=== PATIENT | female | born 1960 | race Caucasian/White ===

== ENCOUNTER → 2016-03-19 | Outpatient (CLI) | payer OTHER ==
--- NOTE | 2016-03-19 10:20 | US ---
EXAMINATION TYPE: US transvaginal DATE OF EXAM: 03/19/2016 7:26 AM COMPARISON: NONE CLINICAL HISTORY: Screening for malignant neoplasm per order; Breast CA and BRCA 2 gene per patient. TECHNIQUE: Transvaginal (TV) pelvic ultrasound. Date of LMP: ~ 8 years ago at time after Breast CA treatment EXAM MEASUREMENTS: Uterus: 7.8 x 4.2 x 3.2cm Endometrial Stripe: 0.5cm ?? Right Ovary:1.7 x 1.8 x 1.4cm Left Ovary: 1.8 x 1.6 x 1.3cm FINDINGS: TECHNOLOGIST IMPRESSION: 1. Uterus: Anteverted; hypoechoic, heterogeneous, oval mass at right midline myometrium with color f low noted in periphery and suggests uterine fibroid = 2.1 x 1.9 x 1.7cm. Suspect subserosal fibroid a s causes lobulation of contour. 2, Endometrium: thickness is wnl for postmenopausal patient 3. Right Ovary: no masses seen and limitedly noted by US 4. Left Ovary: wnl Uterus is suboptimally evaluated due to marked heterogeneity. Endometrium difficult to see with certa inty but is not suspiciously thickened. No free fluid is seen in pelvic cul-de-sac. IMPRESSION: Both ovaries are identified. No suspicious ovarian or adnexal mass is seen bilaterally.
== END | disposition home or self-care (01) ==
LOC: RADUSWWP 06:50
PROVIDERS: ATTEND Internal Medicine
DX: Z08 Encounter for follow-up examination after completed treatment for malignant neoplasm (principal); Z12.73 Encounter for screening for malignant neoplasm of ovary
CPT/HCPCS: 76830

== ENCOUNTER 2016-09-06 16:57 | Inpatient (IN) | payer OTHER ==
[2016-09-06] MEDS ORDERED: methylPREDNISolone SOD SUCCI 125 MG/2 ML VIAL IV STA (17:12)
[2016-09-06] MEDS ORDERED: MAGNESIUM SULFATE-D5W PMX 1 GM in DEXTROSE/WATER 1 100ML.BAG IVPB STA (17:12)
[2016-09-06] MEDS ORDERED: IPRATROPIUM-ALBUTEROL 3 ML NEB INHALATION STA (17:12)
--- NOTE | 2016-09-06 17:25 | ED ---
SOB HPI - General Chief Complaint: Shortness of Breath Stated Complaint: alin Time Seen by Provider: 09/06/16 17:10 Source: patient, RN notes reviewed Mode of arrival: wheelchair Limitations: no limitations - History of Present Illness Initial Comments: This 56-year-old female history of COPD who presents with complaints of ongoing shortness of breath. 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 She recently also* was placed on medications for not helping. She was cough or shoulder sweats he does not smoke anymore. Complaint: shortness of breath - Related Data Home Medications Medication Instructions Recorded Confirmed Albuterol Sulfate [Proair 1 puff PO RT-Q6H PRN 09/06/16 09/06/16 Respiclick] Budesonide/Formoterol Fumarate 2 puff INHALATION RT-BID 09/06/16 09/06/16 [Symbicort 160-4.5 Mcg Inhaler] HYDROcodone/APAP 10-325MG [[place] 1 tab PO BID 09/06/16 09/06/16 10-325] Ibuprofen [Motrin] 600 mg PO BID PRN 09/06/16 09/06/16 Levothyroxine Sodium [Synthroid] 150 mcg PO DAILY 09/06/16 09/06/16 Tiotropium [place] [Spiriva] 1 cap INHALATION RT-DAILY 09/06/16 09/06/16 Zolpidem [Ambien] 5 mg PO HS PRN 09/06/16 09/06/16 Allergies Allergy/AdvReac Type Severity Reaction Status Date / Time ciprofloxacin [From Cipro] Allergy Rash/Hives Verified 09/06/16 17:28 Review of Systems ROS Statement: Those systems with pertinent positive or pertinent negative responses have been documented in the HPI. ROS Other: All systems not noted in ROS Statement are negative. Past Medical History Past Medical History: Cancer, COPD, Thyroid Disorder Additional Past Medical History / Comment(s): breast CA History of Any Multi-Drug Resistant Organisms: None Reported Additional Past Surgical History / Comment(s): bilateral mastectomy Past Psychological History: No Psychological Hx Reported Smoking Status: Former smoker Past Alcohol Use History: None Reported Past Drug Use History: None Reported General Exam - General Exam Comments Initial Comments: This is a well-developed well-nourished awake alert oriented 3 female Limitations: no limitations General appearance: alert, anxious, in distress Head exam: Present: atraumatic, normocephalic, normal inspection Eye exam: Present: normal appearance, PERRL, EOMI. Absent: scleral icterus, conjunctival injection, periorbital swelling ENT exam: Present: mucous membranes dry Neck exam: Present: normal inspection. Absent: tenderness, meningismus, lymphadenopathy Respiratory exam: Present: decreased breath sounds Cardiovascular Exam: Present: normal rhythm, tachycardia GI/Abdominal exam: Present: soft, normal bowel sounds. Absent: distended, tenderness, guarding, rebound, rigid Extremities exam: Present: normal inspection, full ROM, normal capillary refill. Absent: tenderness, pedal edema, joint swelling, calf tenderness Back exam: Present: normal inspection Neurological exam: Present: alert, oriented X3, CN II-XII intact Psychiatric exam: Present: normal affect, normal mood Skin exam: Present: warm, dry, intact, normal color. Absent: rash Course Vital Signs 09/06/16 09/06/16 09/06/16 16:58 17:28 17:37 Temperature 97.6 F Pulse Rate 126 H 126 H 130 H Respiratory 24 Rate Blood Pressure 133/85 O2 Sat by Pulse 79 L Oximetry - Reevaluation(s) Reevaluation #1: 09/06/16 18:46 Reevaluation patient reveals she was getting some improvement Medical Decision Making - Medical Decision Making I did discuss findings with the patient. Visual be admitted there is evidence of congestive failure with a right pleural effusion and pneumonia as not ruled out. There is only with blood cell count patient will be treated for both. - Lab Data Result diagrams: 09/06/16 17:12 09/06/16 17:12 Lab Results 09/06/16 09/06/16 09/06/16 Range/Units 17:12 17:12 17:12 WBC 12.5 H (3.8-10.6) k/uL RBC 4.83 (3.80-5.40) m/uL Hgb 15.1 (11.4-16.0) gm/dL Hct 45.6 (34.0-46.0) % MCV 94.4 (80.0-100.0) fL MCH 31.3 (25.0-35.0) pg MCHC 33.1 (31.0-37.0) g/dL RDW 13.8 (11.5-15.5) % Plt Count 265 (150-450) k/uL Neutrophils % 84 % Lymphocytes % 8 % Monocytes % 6 % Eosinophils % 1 % Basophils % 0 % Neutrophils # 10.4 H (1.3-7.7) k/uL Lymphocytes # 1.0 (1.0-4.8) k/uL Monocytes # 0.7 (0-1.0) k/uL Eosinophils # 0.1 (0-0.7) k/uL Basophils # 0.0 (0-0.2) k/uL PT (9.0-12.0) sec INR (<1.1) APTT (22.0-30.0) sec D-Dimer (<0.60) mg/L FEU Sodium 134 L (137-145) mmol/L Potassium 4.3 (3.5-5.1) mmol/L Chloride 95 L (98-107) mmol/L Carbon Dioxide 28 (22-30) mmol/L Anion Gap 11 mmol/L BUN 17 (7-17) mg/dL Creatinine 0.50 L (0.52-1.04) mg/dL Est GFR (MDRD) Af Amer >60 (>60 ml/min/1.73 sqM) Est GFR (MDRD) Non-Af >60 (>60 ml/min/1.73 sqM) Glucose 140 H (74-99) mg/dL Calcium 9.2 (8.4-10.2) mg/dL Magnesium 1.8 (1.6-2.3) mg/dL Total Bilirubin 0.3 (0.2-1.3) mg/dL AST 22 (14-36) U/L ALT 38 (9-52) U/L Alkaline Phosphatase 86 (38-126) U/L Total Creatine Kinase 43 (30-135) U/L CK-MB (CK-2) 2.4 (0.0-2.4) ng/mL CK-MB (CK-2) Rel Index 5.6 Troponin I 0.013 (0.000-0.034) ng/mL NT-Pro-B Natriuret Pep pg/mL Total Protein 6.3 (6.3-8.2) g/dL Albumin 3.8 (3.5-5.0) g/dL 09/06/16 09/06/16 Range/Units 17:12 17:40 WBC (3.8-10.6) k/uL RBC (3.80-5.40) m/uL Hgb (11.4-16.0) gm/dL Hct (34.0-46.0) % MCV (80.0-100.0) fL MCH (25.0-35.0) pg MCHC (31.0-37.0) g/dL RDW (11.5-15.5) % Plt Count (150-450) k/uL Neutrophils % % Lymphocytes % % Monocytes % % Eosinophils % % Basophils % % Neutrophils # (1.3-7.7) k/uL Lymphocytes # (1.0-4.8) k/uL Monocytes # (0-1.0) k/uL Eosinophils # (0-0.7) k/uL Basophils # (0-0.2) k/uL PT 10.6 (9.0-12.0) sec INR 1.1 (<1.1) APTT 24.5 (22.0-30.0) sec D-Dimer 0.26 (<0.60) mg/L FEU Sodium (137-145) mmol/L Potassium (3.5-5.1) mmol/L Chloride (98-107) mmol/L Carbon Dioxide (22-30) mmol/L Anion Gap mmol/L BUN (7-17) mg/dL Creatinine (0.52-1.04) mg/dL Est GFR (MDRD) Af Amer (>60 ml/min/1.73 sqM) Est GFR (MDRD) Non-Af (>60 ml/min/1.73 sqM) Glucose (74-99) mg/dL Calcium (8.4-10.2) mg/dL Magnesium (1.6-2.3) mg/dL Total Bilirubin (0.2-1.3) mg/dL AST (14-36) U/L ALT (9-52) U/L Alkaline Phosphatase (38-126) U/L Total Creatine Kinase (30-135) U/L CK-MB (CK-2) (0.0-2.4) ng/mL CK-MB (CK-2) Rel Index Troponin I (0.000-0.034) ng/mL NT-Pro-B Natriuret Pep 1700 pg/mL Total Protein (6.3-8.2) g/dL Albumin (3.5-5.0) g/dL - Radiology Data Radiology results: report reviewed (Right pleural effusion with pulmonary vascular congestion.), image reviewed Critical Care Time Critical Care Time: Yes Critical Care Time: 32 minutes of critical care time which includes initial evaluation the patient with history physical labs x-rays reevaluation patient several occasions for responsive therapy. Discussion with the patient regarding findings discussed with the admitting physician initial orders and documentation of the above. Disposition Clinical Impression: Congestive heart failure, Pleural effusion, right, Pneumonitis Disposition: ADMITTED IP TO THIS HOSP Condition: Stable Referrals: Memo Rodriguez MD [Primary Care Provider] - 1-2 days
[2016-09-06 17:46] LABS: Basophils % (A) 0 %; Eosinophils # (A) 0.1 k/uL (0-0.7); Eosinophils % (A) 1 %; HCT 45.6 % (34.0-46.0); HDW 3.13; HGB 15.1 gm/dL (11.4-16.0); Luc # (Auto) 0.18; Luc % (Auto) 2; Lymphocytes % (A) 8 %; MCH 31.3 pg (25.0-35.0); MCHC 33.1 g/dL (31.0-37.0); MCV 94.4 fL (80.0-100.0); Mean Platelet Volume 7.3; Monocytes # (A) 0.7 k/uL (0-1.0); Monocytes % (A) 6 %; Neutrophils # (A) 10.4 k/uL (1.3-7.7); Neutrophils % (A) 84 %; RBC 4.83 m/uL (3.80-5.40); RDW 13.8 % (11.5-15.5); WBC 12.5 k/uL (3.8-10.6); WBC (Perox) 13.29
[2016-09-06 18:01] LABS: ALT 38 U/L (9-52); AST 22 U/L (14-36); Alkaline Phosphatase 86 U/L (38-126); Blood Urea Nitrogen 17 mg/dL (7-17); Calcium 9.2 mg/dL (8.4-10.2); Carbon Dioxide 28 mmol/L (22-30); Glucose 140 mg/dL (74-99); Magnesium 1.8 mg/dL (1.6-2.3); Non-African American GFR(MDRD) >60 (>60 ml/min/1.73 sqM); Potassium 4.3 mmol/L (3.5-5.1); Sodium 134 mmol/L (137-145); Total Bilirubin 0.3 mg/dL (0.2-1.3); Total Protein 6.3 g/dL (6.3-8.2)
[2016-09-06 18:05] LABS: Anion Gap 11 mmol/L; Chloride 95 mmol/L (98-107)
[2016-09-06 18:07] LABS: INR 1.1 (<1.1); Partial Thromboplastin Time 24.5 sec (22.0-30.0); Prothrombin Time 10.6 sec (9.0-12.0)
[2016-09-06 18:12] LABS: Creatine Kinase MB 2.4 ng/mL (0.0-2.4); Troponin I 0.013 ng/mL (0.000-0.034)
--- NOTE | 2016-09-06 18:37 | XR ---
EXAMINATION TYPE: XR chest 2V DATE OF EXAM: 09/06/2016 COMPARISON: 07/22/2016 HISTORY: 55-year-old female difficulty breathing TECHNIQUE: AP and lateral views FINDINGS: Right heart margin obscured by adjacent pleural parenchymal disease. Diffuse interstitial and vascula r prominence. Moderate right and small left pleural effusions with adjacent opacities. IMPRESSION: Increasing now moderate right and small left pleural effusions with adjacent atelectasis and/or conso lidation. Correlate to exclude pulmonary vascular congestion.
[2016-09-06] MEDS ORDERED: IBUPROFEN 600 MG TAB PO PRN (18:52)
--- NOTE | 2016-09-06 18:54 | ED ---
Medical Decision Making - Lab Data Result diagrams: 09/06/16 17:12 09/06/16 17:12 Lab Results 09/06/16 09/06/16 09/06/16 Range/Units 17:12 17:12 17:12 WBC 12.5 H (3.8-10.6) k/uL RBC 4.83 (3.80-5.40) m/uL Hgb 15.1 (11.4-16.0) gm/dL Hct 45.6 (34.0-46.0) % MCV 94.4 (80.0-100.0) fL MCH 31.3 (25.0-35.0) pg MCHC 33.1 (31.0-37.0) g/dL RDW 13.8 (11.5-15.5) % Plt Count 265 (150-450) k/uL Neutrophils % 84 % Lymphocytes % 8 % Monocytes % 6 % Eosinophils % 1 % Basophils % 0 % Neutrophils # 10.4 H (1.3-7.7) k/uL Lymphocytes # 1.0 (1.0-4.8) k/uL Monocytes # 0.7 (0-1.0) k/uL Eosinophils # 0.1 (0-0.7) k/uL Basophils # 0.0 (0-0.2) k/uL PT (9.0-12.0) sec INR (<1.1) APTT (22.0-30.0) sec D-Dimer (<0.60) mg/L FEU Sodium 134 L (137-145) mmol/L Potassium 4.3 (3.5-5.1) mmol/L Chloride 95 L (98-107) mmol/L Carbon Dioxide 28 (22-30) mmol/L Anion Gap 11 mmol/L BUN 17 (7-17) mg/dL Creatinine 0.50 L (0.52-1.04) mg/dL Est GFR (MDRD) Af Amer >60 (>60 ml/min/1.73 sqM) Est GFR (MDRD) Non-Af >60 (>60 ml/min/1.73 sqM) Glucose 140 H (74-99) mg/dL Calcium 9.2 (8.4-10.2) mg/dL Magnesium 1.8 (1.6-2.3) mg/dL Total Bilirubin 0.3 (0.2-1.3) mg/dL AST 22 (14-36) U/L ALT 38 (9-52) U/L Alkaline Phosphatase 86 (38-126) U/L Total Creatine Kinase 43 (30-135) U/L CK-MB (CK-2) 2.4 (0.0-2.4) ng/mL CK-MB (CK-2) Rel Index 5.6 Troponin I 0.013 (0.000-0.034) ng/mL NT-Pro-B Natriuret Pep pg/mL Total Protein 6.3 (6.3-8.2) g/dL Albumin 3.8 (3.5-5.0) g/dL 09/06/16 09/06/16 Range/Units 17:12 17:40 WBC (3.8-10.6) k/uL RBC (3.80-5.40) m/uL Hgb (11.4-16.0) gm/dL Hct (34.0-46.0) % MCV (80.0-100.0) fL MCH (25.0-35.0) pg MCHC (31.0-37.0) g/dL RDW (11.5-15.5) % Plt Count (150-450) k/uL Neutrophils % % Lymphocytes % % Monocytes % % Eosinophils % % Basophils % % Neutrophils # (1.3-7.7) k/uL Lymphocytes # (1.0-4.8) k/uL Monocytes # (0-1.0) k/uL Eosinophils # (0-0.7) k/uL Basophils # (0-0.2) k/uL PT 10.6 (9.0-12.0) sec INR 1.1 (<1.1) APTT 24.5 (22.0-30.0) sec D-Dimer 0.26 (<0.60) mg/L FEU Sodium (137-145) mmol/L Potassium (3.5-5.1) mmol/L Chloride (98-107) mmol/L Carbon Dioxide (22-30) mmol/L Anion Gap mmol/L BUN (7-17) mg/dL Creatinine (0.52-1.04) mg/dL Est GFR (MDRD) Af Amer (>60 ml/min/1.73 sqM) Est GFR (MDRD) Non-Af (>60 ml/min/1.73 sqM) Glucose (74-99) mg/dL Calcium (8.4-10.2) mg/dL Magnesium (1.6-2.3) mg/dL Total Bilirubin (0.2-1.3) mg/dL AST (14-36) U/L ALT (9-52) U/L Alkaline Phosphatase (38-126) U/L Total Creatine Kinase (30-135) U/L CK-MB (CK-2) (0.0-2.4) ng/mL CK-MB (CK-2) Rel Index Troponin I (0.000-0.034) ng/mL NT-Pro-B Natriuret Pep 1700 pg/mL Total Protein (6.3-8.2) g/dL Albumin (3.5-5.0) g/dL Disposition Clinical Impression: Congestive heart failure, Pleural effusion, right, Pneumonitis, Acute exacerbation of chronic obstructive airways disease Disposition: ADMITTED IP TO THIS HOSP Condition: Stable Referrals: Memo Rodriguez MD [Primary Care Provider] - 1-2 days
[2016-09-06] MEDS: FUROSEMIDE 10 MG/ML 4 ML VIAL IV SCH (19:37)
[2016-09-06] MEDS: SODIUM CHLORIDE 0.9% 1,000 ML IV SCH (19:38)
[2016-09-06] MEDS ORDERED: IPRATROPIUM-ALBUTEROL 3 ML NEB INHALATION SCH (20:00)
[2016-09-06] MEDS: NITROGLYCERIN OINT 1 INCH/GM PACKET TOPICAL SCH (20:18)
[2016-09-06] MEDS: HYDROcodone/APAP 10-325MG 1 EACH TAB PO PRN (20:21)
[2016-09-06] MEDS: IPRATROPIUM-ALBUTEROL 3 ML NEB INHALATION PRN (23:20)
[2016-09-07] MEDS: IPRATROPIUM-ALBUTEROL 3 ML NEB INHALATION PRN (03:14)
[2016-09-07 03:32] LABS: Glucose,Whole Blood 218 mg/dL (75-99)
[2016-09-07 04:16] LABS: ABG PH 7.05 (7.35-7.45)
[2016-09-07 04:18] LABS: ABG HCO3 37 mmol/L (21-25); ABG PCO2 >125 mmHg (35-45); ABG PO2 102 mmHg (83-108); ABG TCO2 42 mmol/L (19-24)
[2016-09-07] MEDS ORDERED: SODIUM CHLORIDE 0.9% 2,000 ML IV ONE (04:30)
--- NOTE | 2016-09-07 04:38 | XR ---
EXAM: XR Chest, 1 View CLINICAL HISTORY: Reason: chf/pleural effusion TECHNIQUE: Frontal view of the chest. COMPARISON: 09/06/16 FINDINGS: Lungs: Mild to moderate diffuse airspace opacity throughout both lungs, more on the right. Pleural space: Moderate to large right pleural effusion. Small left pleural effusion. No pneumothorax. Heart: Unremarkable. No cardiomegaly. Mediastinum: Unremarkable. Bones/joints: Moderate degenerative changes in the visualized osseous structures. Tubes, lines and devices: Tip of endotracheal tube is about 6.7 cm above the ermelinda. Tip of enteric tube is below the diaphragm, not included in the [id number]. IMPRESSION: 1. Supporting tubes are detailed as above. 2. No substantial change in cardiopulmonary findings.
[2016-09-07 04:57] LABS: Basophils % (A) 0 %; CH 30.5; CHCM 32.2; Eosinophils # (A) 0.1 k/uL (0-0.7); Eosinophils % (A) 1 %; HCT 42.6 % (34.0-46.0); HDW 3.27; HGB 13.9 gm/dL (11.4-16.0); Hypochromasia Slight; Luc # (Auto) 0.07; Luc % (Auto) 1; Lymphocytes # (A) 0.5 k/uL (1.0-4.8); Lymphocytes % (A) 4 %; MCH 31.2 pg (25.0-35.0); MCHC 32.6 g/dL (31.0-37.0); MCV 95.4 fL (80.0-100.0); Mean Platelet Volume 7.6; Monocytes # (A) 0.3 k/uL (0-1.0); Monocytes % (A) 3 %; Neutrophils # (A) 11.2 k/uL (1.3-7.7); Neutrophils % (A) 91 %; RBC 4.46 m/uL (3.80-5.40); RDW 13.7 % (11.5-15.5); WBC 12.3 k/uL (3.8-10.6); WBC (Perox) 12.02
[2016-09-07] MEDS: PROPOFOL 500 MG in EMPTY BAG 1 BAG IV SCH ×8 (05:00→20:35)
[2016-09-07 05:02] LABS: ALT 29 U/L (9-52); AST 29 U/L (14-36); Alkaline Phosphatase 59 U/L (38-126); Anion Gap 7 mmol/L; Blood Urea Nitrogen 19 mg/dL (7-17); Calcium 8.9 mg/dL (8.4-10.2); Carbon Dioxide 31 mmol/L (22-30); Chloride 96 mmol/L (98-107); Glucose 189 mg/dL (74-99); Non-African American GFR(MDRD) >60 (>60 ml/min/1.73 sqM); Phosphorous 7.3 mg/dL (2.5-4.5); Potassium 5.9 mmol/L (3.5-5.1); Sodium 134 mmol/L (137-145); Total Bilirubin 0.7 mg/dL (0.2-1.3); Total Protein 6.3 g/dL (6.3-8.2)
[2016-09-07] MEDS ORDERED: PROPOFOL 50 ML IV ONE (05:22)
[2016-09-07] MEDS ORDERED: ACETAMINOPHEN IV (For NPO) 1,000 MG in EMPTY BAG 1 BAG IVPB ONE (05:44)
[2016-09-07] MEDS ORDERED: Phosphorus Replacement Protoco 1 EACH MISC MISCELLANE PRN (05:44)
[2016-09-07] MEDS ORDERED: Potassium Replacement Protocol 1 EACH MISC MISCELLANE PRN (05:44)
[2016-09-07] MEDS ORDERED: Magnesium Replacement Protocol 1 EACH MISC MISCELLANE PRN (05:44)
[2016-09-07] MEDS ORDERED: NALOXONE 0.4 MG/ML 1 ML VIAL IV PRN (05:44)
[2016-09-07] MEDS ORDERED: NOREPINEPHRIN 4 MG-0.9% NS PMX 4 MG/250 ML ML IV SCH (05:45)
[2016-09-07] MEDS ORDERED: ACETAMINOPHEN IV (For NPO) 1,000 MG in EMPTY BAG 1 BAG IVPB PRN (06:09)
[2016-09-07] MEDS ORDERED: FUROSEMIDE 10 MG/ML 4 ML VIAL IV STA (06:24)
[2016-09-07] MEDS: FUROSEMIDE 10 MG/ML 4 ML VIAL IV SCH ×3 (06:25→18:49)
[2016-09-07] MEDS ORDERED: LEVOTHYROXINE 75 MCG TAB PO SCH (06:30)
[2016-09-07 06:52] LABS: Glucose,Whole Blood 160 mg/dL (75-99)
[2016-09-07] MEDS ORDERED: LORazepam 2 MG/ML SYRINGE ONE (06:56)
[2016-09-07] MEDS ORDERED: LORazepam 2 MG/ML SYRINGE IV STA (07:00)
[2016-09-07] MEDS: IPRATROPIUM-ALBUTEROL 3 ML NEB INHALATION SCH ×4 (07:39→19:33)
[2016-09-07 07:43] LABS: ABG PCO2 45 mmHg (35-45); ABG PH 7.49 (7.35-7.45); ABG PO2 98 mmHg (83-108)
[2016-09-07 07:44] LABS: ABG HCO3 35 mmol/L (21-25); ABG TCO2 36 mmol/L (19-24)
[2016-09-07] MEDS ORDERED: TIOTROPIUM 18 MCG/PUFF INHALER INHALATION SCH (08:00)
[2016-09-07] MEDS: HEPARIN SODIUM,PORCINE 5,000 UNIT/ML 1 ML VIAL SQ SCH ×3 (08:19→23:05)
[2016-09-07] MEDS: CHLORHEXIDINE GLUCONATE 15 ML CUP MUCOUS MEM SCH ×2 (08:19→21:57)
[2016-09-07] MEDS: PANTOPRAZOLE 40 MG/10 ML VIAL IV SCH (08:19)
[2016-09-07] MEDS: INSULIN LISPRO (humaLOG) 300 UNIT/3 ML VIAL SQ SCH ×4 (08:23→23:09)
[2016-09-07] MEDS: NITROGLYCERIN OINT 1 INCH/GM PACKET TOPICAL SCH (08:23)
[2016-09-07 08:46] LABS: Appearance,Urine Clear (Clear); Bilirubin,Urine Negative (Negative); Glucose,Urine (UA) Negative (Negative); Ketones,Urine Negative (Negative); Leukocyte Esterase,Urine Negative (Negative); Nitrite,Urine Negative (Negative); Protein,Urine Negative (Negative); Specific Gravity,Urine 1.005 (1.001-1.035); UA Billing (MACRO vs. MICRO) CHEM; Urobilinogen,Urine <2.0 mg/dL (<2.0)
--- NOTE | 2016-09-07 08:59 | P.CNPUL ---
History of Present Illness Consult date: 09/07/16 Requesting physician: Memo Rodriguez Reason for consult: dyspnea, hypoxemia, pleural effusion Chief complaint: Shortness of breath History of present illness: This is a 56-year-old female with history of severe COPD, chronic shortness of breath, recently saw her primary care physician for shortness of breath, and she was placed on multiple bronchodilators including albuterol, Symbicort, and Spiriva. Not much improvement was noted, patient presented to the ER and she was noted to have abnormal chest x-ray consistent with pulmonary edema good sized right-sided pleural effusion, underlying pneumonia is not entirely ruled out but felt to be less likely. Patient was admitted to the medical floor with the impression of congestive heart failure, COPD, and possible underlying pneumonitis. At 3 AM, patient's clinical condition deteriorated, and I was called by the A team regarding this patient. Apparently patient became very lethargic, hypercapnic, and was difficult to arouse. ABG done at that point showed a pO2 of 102, pCO2 of 144, and pH of 7.05. I believe the patient was given a brief trial of BiPAP by the A team however upon my awareness of this patient's ABG, I recommended immediate intubation. Patient was intubated and transferred to the intensive care unit. Couple of hours later, I saw the patient on consultation at 6 AM. Chest x-ray was reviewed vent settings were reviewed and adjusted presently the patient is on a tidal volume of 400, assist control rate of 14, FiO2 of 50%, and PEEP of 5. Flow rates at 50 L/m. Shortly after intubation, patient became hypotensive and she was given 2 L of fluid boluses, and she was also placed on norepinephrine. At the time of my evaluation, she was on 10 g of norepinephrine, and I was able to taper down to 2.5 g, and I have also recommended discontinuation of norepinephrine if mean arterial pressure remains above 65. After reviewing the chest x-ray, I felt that we are dealing mostly with a picture of pulmonary edema and good sized right-sided pleural effusion, hence I recommended that we'll continue with diuretics, and 40 mg of Lasix IV push was ordered. Attempted to place a left radial arterial line, however was unsuccessful, but I was able to place a right brachial arterial line to monitor patient's blood pressure continuously. And to be able to draw blood gases intermittently. I reviewed the medications, and I kept the patient on her DuoNeb, Lasix, Peridex, heparin subcu, Rocephin, level thyroxine, propofol, methylprednisolone Protonix, and IV fluid was cut down to KVO. I have also recommended echocardiogram to be done and a cardiac consultation. I believe the presentation is a presentation of congestive heart failure possibly secondary to systolic dysfunction, and COPD exacerbation, underlying pneumonia is not entirely ruled out but felt to be less likely. Ultrasound of the chest was ordered and to be done in a.m. since the patient seems to be responding well to diuretics at this point. May or may not require right sided thoracentesis. Review of Systems ROS unobtainable: due to endotracheal tube Past Medical History Past Medical History: Cancer, COPD, Thyroid Disorder Additional Past Medical History / Comment(s): breast CA History of Any Multi-Drug Resistant Organisms: None Reported Additional Past Surgical History / Comment(s): bilateral mastectomy Past Psychological History: No Psychological Hx Reported Smoking Status: Former smoker - Past Family History Mother Family Medical History: Unable to Obtain Father Family Medical History: Unable to Obtain Medications and Allergies Home Medications Medication Instructions Recorded Confirmed Type Albuterol Sulfate [Proair 1 puff PO RT-Q6H PRN 09/06/16 09/06/16 History Respiclick] Budesonide/Formoterol Fumarate 2 puff INHALATION RT-BID 09/06/16 09/06/16 History [Symbicort 160-4.5 Mcg Inhaler] HYDROcodone/APAP 10-325MG [[place] 1 tab PO BID 09/06/16 09/06/16 History 10-325] Ibuprofen [Motrin] 600 mg PO BID PRN 09/06/16 09/06/16 History Levothyroxine Sodium [Synthroid] 150 mcg PO DAILY 09/06/16 09/06/16 History Tiotropium [place] [Spiriva] 1 cap INHALATION RT-DAILY 09/06/16 09/06/16 History Zolpidem [Ambien] 5 mg PO HS PRN 09/06/16 09/06/16 History Allergies Allergy/AdvReac Type Severity Reaction Status Date / Time ciprofloxacin [From Cipro] Allergy Rash/Hives Verified 09/06/16 17:28 Physical Exam Vitals: Vital Signs Temp Pulse Pulse Resp BP BP Pulse Ox 09/07/16 08:30 102 H 14 100 09/07/16 08:20 104 H 12 100 09/07/16 08:10 100 10 L 99 09/07/16 08:05 101 H 09/07/16 08:00 101 H 35 H 97 09/07/16 07:50 99 20 96 09/07/16 07:48 98 09/07/16 07:40 100 20 126/81 99 09/07/16 07:30 99 20 112/77 97 09/07/16 07:20 95 20 138/74 99 09/07/16 07:10 94 19 99 09/07/16 07:00 97 20 99 09/07/16 06:50 93 23 98 09/07/16 06:40 91 20 99 09/07/16 06:30 101 H 20 114/68 98 09/07/16 06:20 97 20 110/73 99 09/07/16 06:10 94 20 100 09/07/16 06:00 92 27 H 99 09/07/16 05:50 91 20 100 09/07/16 05:40 94 20 100 09/07/16 05:30 97 20 100 09/07/16 05:20 99 20 102/71 97 09/07/16 05:10 100 21 96 09/07/16 05:00 97.7 F 101 H 20 135/69 98 09/07/16 04:50 112 H 20 81 L 09/07/16 04:40 99 21 98 09/07/16 04:30 97 20 70/47 97 09/07/16 04:20 100 20 99 09/07/16 04:10 101 H 20 72/36 99 09/07/16 04:00 114 H 20 48/35 99 09/07/16 03:50 122 H 20 156/85 97 09/07/16 03:40 122 H 170/107 96 09/07/16 03:35 121 H 165/107 90 L 09/07/16 03:30 116 H 22 180/108 94 L 09/07/16 03:14 118 H 09/07/16 03:02 116 H 09/07/16 02:00 22 92 L 09/07/16 00:00 98.6 F 119 H 20 120/78 93 L 09/06/16 23:25 88 09/06/16 23:14 116 H 09/06/16 23:00 24 77 L 09/06/16 20:14 125 H 09/06/16 20:04 120 H 09/06/16 20:00 96.8 F L 123 H 22 161/98 91 L 09/06/16 19:33 98.1 F 115 H 18 138/96 95 09/06/16 18:54 115 H 18 133/92 95 09/06/16 17:37 130 H 09/06/16 17:28 126 H 09/06/16 16:58 97.6 F 126 H 24 133/85 79 L Intake and Output 09/06/16 09/07/16 09/07/16 22:59 06:59 14:59 Intake Total 2200 70 Output Total 400 350 Balance 1800 -280 Intake: Intake, IV Titration 2000 70 Amount Propofol 500 mg In Empty 50 Bag 1 bag @ Titrate IV . Q0M TERRI Rx#:[id number] Sodium Chloride 0.9% 1, 20 000 ml @ 20 mls/hr IV . Q24H TERRI Rx#:[id number] Sodium Chloride 0.9% 2, 2000 000 ml @ 999 mls/hr IV . Q2H1M ONE Rx#:[id number] Oral 200 Output: Urine 400 350 Other: Voiding Method Toilet Toilet # Voids 2 Weight 83.007 kg 92.1 kg ABP, PAP, CO, CI - Last 8 Hours Arterial Blood Pressure 108/67 Arterial Blood Pressure 103/62 Arterial Blood Pressure 113/67 Arterial Blood Pressure 117/75 Arterial Blood Pressure 114/76 Arterial Blood Pressure 114/75 Arterial Blood Pressure 115/75 Arterial Blood Pressure 121/74 Physical Exam: Revealed a 55-year-old female slightly obese, on mechanical ventilation, endotracheal tube is intact, orogastric tube is also intact. HEENT:[Neck is supple.] [No neck masses.] [No thyromegaly.] [No JVD.] Chest: [Diminished breath sounds at the right base, crackles at the left base noted. Cardiac Exam: [Normal S1 and S2, no S3 gallop, no murmur.] Abdomen: [Soft, nontender, no megaly, no rebound, no guarding, normal bowel sounds.] Extremities: [No clubbing, 1+ bipedal edema, no cyanosis.] Neurological Exam: Not be assessed, patient is on mechanical ventilation, propofol drip, sedated. However she was noted to have intermittent episodes of myoclonic jerks mostly in both upper extremities. Results - Laboratory Findings CBC and BMP: 09/07/16 04:40 09/07/16 04:40 ABG ABG pH 7.49 (7.35-7.45) H 09/07/16 07:25 ABG pCO2 45 mmHg (35-45) 09/07/16 07:25 ABG pO2 98 mmHg (83-108) 09/07/16 07:25 ABG O2 Saturation 98.0 % (94-97) H 09/07/16 07:25 PT/INR, D-dimer PT 10.6 sec (9.0-12.0) 09/06/16 17:40 INR 1.1 (<1.1) 09/06/16 17:40 D-Dimer 0.26 mg/L FEU (<0.60) 09/06/16 17:40 Abnormal lab findings: Abnormal Labs 09/06/16 09/06/16 09/07/16 17:12 17:12 03:24 WBC 12.5 H Neutrophils # 10.4 H Lymphocytes # ABG pH 7.05 L* ABG pCO2 >125 H* ABG HCO3 37 H ABG Total CO2 42 H ABG O2 Saturation 93.0 L Sodium 134 L Potassium Chloride 95 L Carbon Dioxide BUN Creatinine 0.50 L Glucose 140 H POC Glucose (mg/dL) Phosphorus Albumin 09/07/16 09/07/16 09/07/16 03:28 04:40 04:40 WBC 12.3 H Neutrophils # 11.2 H Lymphocytes # 0.5 L ABG pH ABG pCO2 ABG HCO3 ABG Total CO2 ABG O2 Saturation Sodium 134 L Potassium 5.9 H Chloride 96 L Carbon Dioxide 31 H BUN 19 H Creatinine Glucose 189 H POC Glucose (mg/dL) 218 H Phosphorus 7.3 H Albumin 3.4 L 09/07/16 09/07/16 06:50 07:25 WBC Neutrophils # Lymphocytes # ABG pH 7.49 H ABG pCO2 ABG HCO3 35 H ABG Total CO2 36 H ABG O2 Saturation 98.0 H Sodium Potassium Chloride Carbon Dioxide BUN Creatinine Glucose POC Glucose (mg/dL) 160 H Phosphorus Albumin - Diagnostic Findings Chest x-ray: image reviewed (Chest x-ray is mostly consistent with findings of congestive heart failure and moderate right-sided pleural effusion small tiny left pleural effusion and evidence of interstitial edema.) Assessment and Plan Plan: Impression: 1 acute hypoxic and hypercapnic respiratory failure secondary to acute pulmonary edema and underlying COPD with acute exacerbation. Requiring intubation and mechanical ventilation. 2 possible underlying pneumonia, however the findings on the chest x-ray are mostly findings of pulmonary edema, strongly doubt pneumonia. 3 history of hypothyroidism, on replacement therapy. 4 history of breast cancer and previous bilateral mastectomy. Recommendation: Continue mechanical ventilation, ventilator settings were adjusted accordingly. Continue hemodynamic support with norepinephrine if needed. Continue antibiotics diuretics bronchodilators and steroids GI and DVT prophylaxis, ultrasound of the chest was ordered to be done in a.m., I'm hoping that her pleural effusion will significantly improve with diuresis. Echocardiogram was ordered, cardiology was consulted. Patient is critically ill. Critical care time is 45 minutes, not including time spent on procedures. Time with Patient: Greater than 30
[2016-09-07] MEDS: LEVOTHYROXINE IVP 100 MCG/5 ML VIAL IV SCH (09:18)
[2016-09-07] MEDS: methylPREDNISolone SOD SUCCI 40 MG/ML 1 ML VIAL IV SCH ×3 (09:19→23:05)
[2016-09-07 12:12] LABS: Glucose,Whole Blood 92 mg/dL (75-99)
--- NOTE | 2016-09-07 18:15 | P.HPIM ---
History of Present Illness H&P Date: 09/07/16 Patient is sedated and intubated and unable to provide any medical history most of the medical history was obtained by chart review This is a 55-year-old female with past medical history noted below significant for underlying COPD who presented to the hospital with worsening shortness of breath and was admitted initially with acute COPD exacerbation. Subsequently her overall condition was declining and eventually was found to be in acute hypercapnic respiratory failure. PH was 7.01. Patient was intubated and is currently in the ICU. Her [id number] is at bedside. Review of Systems Unable to review other systems as patient is sedated and intubated Past Medical History Past Medical History: Cancer, COPD, Thyroid Disorder Additional Past Medical History / Comment(s): breast CA History of Any Multi-Drug Resistant Organisms: None Reported Additional Past Surgical History / Comment(s): bilateral mastectomy Past Psychological History: No Psychological Hx Reported Smoking Status: Former smoker - Past Family History Mother Family Medical History: Unable to Obtain Father Family Medical History: Unable to Obtain Medications and Allergies Home Medications Medication Instructions Recorded Confirmed Type Albuterol Sulfate [Proair 1 puff PO RT-Q6H PRN 09/06/16 09/06/16 History Respiclick] Budesonide/Formoterol Fumarate 2 puff INHALATION RT-BID 09/06/16 09/06/16 History [Symbicort 160-4.5 Mcg Inhaler] HYDROcodone/APAP 10-325MG [[place] 1 tab PO BID 09/06/16 09/06/16 History 10-325] Ibuprofen [Motrin] 600 mg PO BID PRN 09/06/16 09/06/16 History Levothyroxine Sodium [Synthroid] 150 mcg PO DAILY 09/06/16 09/06/16 History Tiotropium [place] [Spiriva] 1 cap INHALATION RT-DAILY 09/06/16 09/06/16 History Zolpidem [Ambien] 5 mg PO HS PRN 09/06/16 09/06/16 History Allergies Allergy/AdvReac Type Severity Reaction Status Date / Time ciprofloxacin [From Cipro] Allergy Rash/Hives Verified 09/06/16 17:28 Physical Exam Vitals: Vital Signs Temp Pulse Pulse Resp BP BP Pulse Ox 09/07/16 17:00 108 H 14 97 09/07/16 16:12 101 H 09/07/16 16:00 98.1 F 107 H 14 98 09/07/16 15:35 106 H 09/07/16 15:00 111 H 14 97 09/07/16 14:00 109 H 14 98 09/07/16 13:00 101 H 14 98 09/07/16 12:00 98.2 F 98 14 99 09/07/16 11:30 99 09/07/16 11:18 94 09/07/16 11:00 98 14 99 09/07/16 10:00 102 H 14 99 09/07/16 09:30 104 H 14 100 09/07/16 09:00 98.4 F 105 H 14 100 09/07/16 08:30 102 H 14 100 09/07/16 08:20 104 H 12 100 09/07/16 08:10 100 10 L 99 09/07/16 08:05 101 H 09/07/16 08:00 101 H 35 H 97 09/07/16 07:50 99 20 96 09/07/16 07:48 98 09/07/16 07:40 100 20 126/81 99 09/07/16 07:30 99 20 112/77 97 09/07/16 07:20 95 20 138/74 99 09/07/16 07:10 94 19 99 09/07/16 07:00 97 20 99 09/07/16 06:50 93 23 98 09/07/16 06:40 91 20 99 09/07/16 06:30 101 H 20 114/68 98 09/07/16 06:20 97 20 110/73 99 09/07/16 06:10 94 20 100 09/07/16 06:00 92 27 H 99 09/07/16 05:50 91 20 100 09/07/16 05:40 94 20 100 09/07/16 05:30 97 20 100 09/07/16 05:20 99 20 102/71 97 09/07/16 05:10 100 21 96 09/07/16 05:00 97.7 F 101 H 20 135/69 98 09/07/16 04:50 112 H 20 81 L 09/07/16 04:40 99 21 98 09/07/16 04:30 97 20 70/47 97 09/07/16 04:20 100 20 99 09/07/16 04:10 101 H 20 72/36 99 09/07/16 04:00 114 H 20 48/35 99 09/07/16 03:50 122 H 20 156/85 97 09/07/16 03:40 122 H 170/107 96 09/07/16 03:35 121 H 165/107 90 L 09/07/16 03:30 116 H 22 180/108 94 L 09/07/16 03:14 118 H 09/07/16 03:02 116 H 09/07/16 02:00 22 92 L 09/07/16 00:00 98.6 F 119 H 20 120/78 93 L 09/06/16 23:25 88 09/06/16 23:14 116 H 09/06/16 23:00 24 77 L 09/06/16 20:14 125 H 09/06/16 20:04 120 H 09/06/16 20:00 96.8 F L 123 H 22 161/98 91 L 09/06/16 19:33 98.1 F 115 H 18 138/96 95 09/06/16 18:54 115 H 18 133/92 95 Intake and Output 09/07/16 09/07/16 09/07/16 06:59 14:59 22:59 Intake Total 2200 352.953 130.965 Output Total 400 2275 200 Balance 1800 -1922.047 -69.035 Intake: Intake, IV Titration 1999 352.953 130.965 Amount Propofol 500 mg In Empty 192.953 70.965 Bag 1 bag @ Titrate IV . Q0M TERRI Rx#:[id number] Sodium Chloride 0.9% 1, 160 60 000 ml @ 20 mls/hr IV . Q24H TERRI Rx#:[id number] Sodium Chloride 0.9% 2, 2000 000 ml @ 999 mls/hr IV . Q2H1M ONE Rx#:[id number] Oral 200 Output: Urine 400 2275 200 Other: Voiding Method Indwelling Catheter Indwelling Catheter Indwelling Catheter Weight 92.1 kg ABP, PAP, CO, CI - Last 8 Hours Arterial Blood Pressure 128/70 Arterial Blood Pressure 125/69 Arterial Blood Pressure 110/66 Arterial Blood Pressure 119/71 Arterial Blood Pressure 116/69 Arterial Blood Pressure 101/62 Arterial Blood Pressure 97/61 General: The patient is sedated and intubated Eye: there is normal conjunctiva bilaterally. Neck: The neck is supple, there is no JVD. Cardiovascular: Normal S1-S2, no S3-S4, no murmurs. Respiratory: Lungs with mechanical ventilator sounds Gastrointestinal: Abdomen is soft, nontender Musculoskeletal: There is no pedal edema. Skin: Skin is warm and dry Results CBC & Chem 7: 09/07/16 04:40 09/07/16 04:40 Labs: Abnormal Lab Results - Last 24 Hours (Table) 09/07/16 09/07/16 09/07/16 Range/Units 03:24 03:28 04:40 WBC 12.3 H (3.8-10.6) k/uL Neutrophils # 11.2 H (1.3-7.7) k/uL Lymphocytes # 0.5 L (1.0-4.8) k/uL ABG pH 7.05 L* (7.35-7.45) ABG pCO2 >125 H* (35-45) mmHg ABG HCO3 37 H (21-25) mmol/L ABG Total CO2 42 H (19-24) mmol/L ABG O2 Saturation 93.0 L (94-97) % Sodium (137-145) mmol/L Potassium (3.5-5.1) mmol/L Chloride (98-107) mmol/L Carbon Dioxide (22-30) mmol/L BUN (7-17) mg/dL Glucose (74-99) mg/dL POC Glucose (mg/dL) 218 H (75-99) mg/dL Phosphorus (2.5-4.5) mg/dL Albumin (3.5-5.0) g/dL 09/07/16 09/07/16 09/07/16 Range/Units 04:40 06:50 07:25 WBC (3.8-10.6) k/uL Neutrophils # (1.3-7.7) k/uL Lymphocytes # (1.0-4.8) k/uL ABG pH 7.49 H (7.35-7.45) ABG pCO2 (35-45) mmHg ABG HCO3 35 H (21-25) mmol/L ABG Total CO2 36 H (19-24) mmol/L ABG O2 Saturation 98.0 H (94-97) % Sodium 134 L (137-145) mmol/L Potassium 5.9 H (3.5-5.1) mmol/L Chloride 96 L (98-107) mmol/L Carbon Dioxide 31 H (22-30) mmol/L BUN 19 H (7-17) mg/dL Glucose 189 H (74-99) mg/dL POC Glucose (mg/dL) 160 H (75-99) mg/dL Phosphorus 7.3 H (2.5-4.5) mg/dL Albumin 3.4 L (3.5-5.0) g/dL Microbiology - Last 24 Hours (Table) 09/07/16 08:33 Urine Culture - Preliminary Urine,Catheterized Assessment and Plan Plan: 1. Acute hypercapnic respiratory failure requiring intubation and mechanical ventilation 2. Acute COPD exacerbation 3. Chronic tobacco abuse 4. Hypothyroidism 5. History of breast cancer status post bilateral mastectomy with positive BRCA2 gene mutation 6. Morbid obesity and prediabetes 7. GI and DVT prophylaxis Today, I reviewed her medication list and lab work results. Continue bronchodilators and IV steroids. Appreciate foot miter operator recommendations. Continue ICU care. IV Lasix push 40 mg every 8 hours. Repeat lab work in the morning. Family members at bedside updated about her guarded prognosis.
[2016-09-07] MEDS: SODIUM CHLORIDE 0.9% 1,000 ML IV SCH (18:49)
[2016-09-07 18:50] LABS: Glucose,Whole Blood 113 mg/dL (75-99)
[2016-09-07 23:00] LABS: ABG Base Excess 17.7 mmol/L; ABG HCO3 43 mmol/L (21-25); ABG PCO2 57 mmHg (35-45); ABG PH 7.49 (7.35-7.45); ABG PO2 74 mmHg (83-108); ABG TCO2 44 mmol/L (19-24)
[2016-09-08] MEDS ORDERED: FUROSEMIDE 10 MG/ML 4 ML VIAL ONE (02:15)
[2016-09-08 02:59] LABS: Glucose,Whole Blood 125 mg/dL (75-99)
[2016-09-08] MEDS: FUROSEMIDE 10 MG/ML 4 ML VIAL IV SCH ×3 (05:02→19:10)
[2016-09-08 05:27] LABS: Basophils % (A) 0 %; CH 30.7; CHCM 32.6; Eosinophils # (A) 0.1 k/uL (0-0.7); Eosinophils % (A) 1 %; HCT 41.9 % (34.0-46.0); HDW 3.01; HGB 13.9 gm/dL (11.4-16.0); Luc # (Auto) 0.16; Luc % (Auto) 1; Lymphocytes # (A) 0.6 k/uL (1.0-4.8); Lymphocytes % (A) 3 %; MCH 31.3 pg (25.0-35.0); MCHC 33.2 g/dL (31.0-37.0); MCV 94.5 fL (80.0-100.0); Mean Platelet Volume 7.4; Monocytes # (A) 1.1 k/uL (0-1.0); Monocytes % (A) 6 %; Neutrophils # (A) 15.1 k/uL (1.3-7.7); Neutrophils % (A) 89 %; RBC 4.43 m/uL (3.80-5.40); RDW 13.6 % (11.5-15.5); WBC (Perox) 18.18
[2016-09-08 05:50] LABS: Blood Urea Nitrogen 24 mg/dL (7-17); Calcium 9.1 mg/dL (8.4-10.2); Chloride 88 mmol/L (98-107); Glucose 166 mg/dL (74-99); Magnesium 1.9 mg/dL (1.6-2.3); Non-African American GFR(MDRD) >60 (>60 ml/min/1.73 sqM); Potassium 3.7 mmol/L (3.5-5.1); Sodium 141 mmol/L (137-145)
[2016-09-08 05:56] LABS: Anion Gap 11 mmol/L
[2016-09-08 05:59] LABS: Carbon Dioxide 42 mmol/L (22-30)
[2016-09-08] MEDS: INSULIN LISPRO (humaLOG) 300 UNIT/3 ML VIAL SQ SCH ×4 (07:56→20:12)
[2016-09-08] MEDS ORDERED: POTASSIUM CHLORIDE ER 20 MEQ TAB.ER PO SCH (08:00)
[2016-09-08 08:05] LABS: Glucose,Whole Blood 105 mg/dL (75-99)
[2016-09-08] MEDS: CHLORHEXIDINE GLUCONATE 15 ML CUP MUCOUS MEM SCH (08:08)
[2016-09-08] MEDS: HEPARIN SODIUM,PORCINE 5,000 UNIT/ML 1 ML VIAL SQ SCH ×3 (08:10→23:47)
[2016-09-08] MEDS: PANTOPRAZOLE 40 MG/10 ML VIAL IV SCH (08:10)
[2016-09-08] MEDS: methylPREDNISolone SOD SUCCI 40 MG/ML 1 ML VIAL IV SCH ×3 (08:11→23:47)
[2016-09-08] MEDS: MAGNESIUM SULFATE-D5W PMX 1 GM in DEXTROSE/WATER 1 100ML.BAG IVPB SCH ×2 (08:11→10:19)
[2016-09-08] MEDS: LEVOTHYROXINE IVP 100 MCG/5 ML VIAL IV SCH (08:12)
--- NOTE | 2016-09-08 08:42 | XR ---
EXAMINATION TYPE: XR chest 1V portable DATE OF EXAM: 09/08/2016 COMPARISON: Prior chest x-ray 09/07/2016 HISTORY: Extubated, abnormal chest x-ray TECHNIQUE: Single frontal view of the chest is obtained. FINDINGS: Increasing opacity seen at the right lower chest, the hemidiaphragm is obscured. Abnormal increased attenuation again noted at the left lower chest suggestive of pleural effusion and associat ed atelectasis. Endotracheal and NG tubes have been removed. Breast prostheses are present. No pneumo thorax. IMPRESSION: Increasing pleural effusion suspected on the right. Interval extubation.
[2016-09-08] MEDS: IPRATROPIUM-ALBUTEROL 3 ML NEB INHALATION SCH ×4 (09:06→20:01)
[2016-09-08] MEDS: SYMBICORT 160-4.5 MCG INHALER INHALATION SCH ×2 (09:20→20:01)
[2016-09-08] MEDS ORDERED: LOSARTAN 25 MG TAB PO STA (09:51)
[2016-09-08] MEDS: VERAPAMIL 40 MG TAB PO SCH ×3 (10:20→21:32)
--- NOTE | 2016-09-08 10:37 | ECHOF ---
Referral Reason:CHF MEASUREMENTS -------- HEIGHT: 162.6 cm WEIGHT: 906.7 kg BP: 148/88 RVIDd: 1.9 cm (< 3.3) IVSd: 1.1 cm (0.6 - 1.1) LVIDd: 3.1 cm (3.9 - 5.3) LVPWd: 1.0 cm (0.6 - 1.1) IVSs: 1.3 cm LVIDs: 2.2 cm LVPWs: 1.5 cm LA Diam: 1.9 cm (2.7 - 3.8) Ao Diam: 2.8 cm (2.0 - 3.7) AV Cusp: 1.8 cm (1.5 - 2.6) MV EXCURSION: 20.868 mm (> 18.000) MV EF SLOPE: 158 mm/s (70 - 150) EPSS: 1.0 cm MV E Royal: 1.14 m/s MV DecT: 129 ms MV A Royal: 1.22 m/s MV E/A Ratio: 0.94 FINDINGS -------- Resting tachycardia (HR>100bpm). This was a technically difficult study with suboptimal apical views. The left ventricular size is normal. Left ventricular wall thickness is normal. Overall left ventricular systolic function is normal with, an EF between 55 - 60 %. The right ventricle is normal in size and function. The left atrium is normal in size. The right atrium is normal in size. The aortic valve is trileaflet, and appears structurally normal. No aortic stenosis or regurgitation. The mitral valve is normal. The tricuspid valve appears structurally normal. The pulmonic valve was not well visualized. The aortic root size is normal. Normal inferior vena cava with normal inspiratory collapse consistent with estimated right atrial pressure of 5 mmHg. There is no pericardial effusion. Pleural Effusion with Fibrin. CONCLUSIONS -------- 1. Resting tachycardia (HR>100bpm). 2. The aortic root size is normal. 3. Normal inferior vena cava with normal inspiratory collapse consistent with estimated right atrial pressure of 5 mmHg. 4. There is no pericardial effusion. 5. Pleural Effusion with Fibrin. 6. This was a technically difficult study with suboptimal apical views. 7. Left ventricular wall thickness is normal. 8. Overall left ventricular systolic function is normal with, an EF between 55 - 60 %. 9. The left atrium is normal in size. 10. The aortic valve is trileaflet, and appears structurally normal. No aortic stenosis or regurgitation. 11. The mitral valve is normal. 12. The tricuspid valve appears structurally normal. 13. The pulmonic valve was not well visualized. WARP KNITTER: Stephanie Granados RDCS
[2016-09-08 10:58] VITALS: BMI 34.3
--- NOTE | 2016-09-08 10:59 | US ---
EXAMINATION TYPE: US chest DATE OF EXAM: 09/08/2016 COMPARISON: X-ray chest same date CLINICAL HISTORY: Pleural effusion. Bilateral pleural effusions, exam done portable in ICU. EXAM MEASUREMENTS: Right Pleural Effusion fluid pocket: 9.9 cm Right skin to fluid thickness: 4.0 cm Left Pleural Effusion fluid pocket: 9.2 cm Left skin to fluid thickness: 3.6 cm Right side MARKED for possible thoracentesis outside the dept. Left side MARKED for possible thoracentesis outside the dept. Pulmonologists are able to review the images in the patient?s EMR. IMPRESSIONS: Bilateral pleural effusions.
--- NOTE | 2016-09-08 11:33 | P.PN ---
Subjective This is a 56-year-old female with history of severe COPD, chronic shortness of breath, recently saw her primary care physician for shortness of breath, and she was placed on multiple bronchodilators including albuterol, Symbicort, and Spiriva. Not much improvement was noted, patient presented to the ER and she was noted to have abnormal chest x-ray consistent with pulmonary edema good sized right-sided pleural effusion, underlying pneumonia is not entirely ruled out but felt to be less likely. Patient was admitted to the medical floor with the impression of congestive heart failure, COPD, and possible underlying pneumonitis. At 3 AM, patient's clinical condition deteriorated, and I was called by the A team regarding this patient. Apparently patient became very lethargic, hypercapnic, and was difficult to arouse. ABG done at that point showed a pO2 of 102, pCO2 of 144, and pH of 7.05. I believe the patient was given a brief trial of BiPAP by the A team however upon my awareness of this patient's ABG, I recommended immediate intubation. Patient was intubated and transferred to the intensive care unit. Couple of hours later, I saw the patient on consultation at 6 AM. Chest x-ray was reviewed vent settings were reviewed and adjusted presently the patient is on a tidal volume of 400, assist control rate of 14, FiO2 of 50%, and PEEP of 5. Flow rates at 50 L/m. Shortly after intubation, patient became hypotensive and she was given 2 L of fluid boluses, and she was also placed on norepinephrine. At the time of my evaluation, she was on 10 g of norepinephrine, and I was able to taper down to 2.5 g, and I have also recommended discontinuation of norepinephrine if mean arterial pressure remains above 65. After reviewing the chest x-ray, I felt that we are dealing mostly with a picture of pulmonary edema and good sized right-sided pleural effusion, hence I recommended that we'll continue with diuretics, and 40 mg of Lasix IV push was ordered. Attempted to place a left radial arterial line, however was unsuccessful, but I was able to place a right brachial arterial line to monitor patient's blood pressure continuously. And to be able to draw blood gases intermittently. I reviewed the medications, and I kept the patient on her DuoNeb, Lasix, Peridex, heparin subcu, Rocephin, level thyroxine, propofol, methylprednisolone Protonix, and IV fluid was cut down to KVO. I have also recommended echocardiogram to be done and a cardiac consultation. I believe the presentation is a presentation of congestive heart failure possibly secondary to systolic dysfunction, and COPD exacerbation, underlying pneumonia is not entirely ruled out but felt to be less likely. Ultrasound of the chest was ordered and to be done in a.m. since the patient seems to be responding well to diuretics at this point. May or may not require right sided thoracentesis. The patient is seen again today in the intensive care unit. She remained quite awake and alert and she is successfully extubated last evening. She is currently maintaining good O2 saturations in the low to mid 90s on 2 L/m per nasal cannula. She is slightly tachycardic. Afebrile. White count 17.0. She is awake and alert in no acute distress. She is dyspneic on minimal exertion however. Her chest x-ray does reveal bilateral pleural effusions right greater than left. 0.9 normal saline at KVO. Objective - Vital Signs Vital signs: Vital Signs Temp 98.2 F 09/08/16 04:00 Pulse 120 H 09/08/16 09:25 Resp 16 09/08/16 07:00 BP 126/81 09/07/16 07:40 Pulse Ox 94 L 09/08/16 07:00 Intake & Output 09/07/16 09/08/16 09/08/16 18:59 06:59 18:59 Intake Total 503.918 409.900 20 Output Total 2525 2655 60 Balance -2021.082 -2245.100 -40 Weight 90.7 kg 90.7 kg Intake: Intake, IV Titration 503.918 409.900 20 Amount ACETAMINOPHEN IV (For NPO 100 ) 1,000 mg In Empty Bag 1 bag @ 400 mls/hr IVPB Q6HR PRN Rx#:[id number] Propofol 500 mg In Empty 263.918 74.900 Bag 1 bag @ Titrate IV . Q0M TERRI Rx#:[id number] Sodium Chloride 0.9% 1, 240 235 20 000 ml @ 20 mls/hr IV . Q24H TERRI Rx#:[id number] Output: Urine 2525 2655 60 Other: Voiding Method Indwelling Catheter Indwelling Catheter ABP, PAP, CO, CI - Last Documented Arterial Blood Pressure 137/70 - Exam GENERAL EXAM: Alert,fairly comfortable in no apparent distress. HEAD: Normocephalic. EYES: Normal reaction of pupils, equal size. NOSE: Clear with pink turbinates. THROAT: No erythema or exudates. NECK: No masses, no JVD. CHEST: No chest wall deformity. LUNGS: Equal air entry with crackles in the posterior bases. Diminished more so on the right. CVS: S1 and S2 normal with no audible murmurs, regular rhythm. ABDOMEN: No hepatosplenomegaly, normal bowel sounds, no guarding or rigidity. SPINE: No scoliosis or deformity SKIN: No rashes CENTRAL NERVOUS SYSTEM: No focal deficits, tone is normal in all 4 extremities. Extremities: There is trace peripheral edema. No clubbing, no cyanosis. Peripheral pulses are intact. - Labs CBC & Chem 7: 09/08/16 05:10 09/08/16 05:10 Labs: Abnormal Lab Results - Last 24 Hours (Table) 09/07/16 09/07/16 09/07/16 Range/Units 18:48 22:54 23:08 WBC (3.8-10.6) k/uL Neutrophils # (1.3-7.7) k/uL Lymphocytes # (1.0-4.8) k/uL Monocytes # (0-1.0) k/uL ABG pH 7.49 H (7.35-7.45) ABG pCO2 57 H (35-45) mmHg ABG pO2 74 L (83-108) mmHg ABG HCO3 43 H* (21-25) mmol/L ABG Total CO2 44 H (19-24) mmol/L Chloride (98-107) mmol/L Carbon Dioxide (22-30) mmol/L BUN (7-17) mg/dL Glucose (74-99) mg/dL POC Glucose (mg/dL) 113 H 125 H (75-99) mg/dL Phosphorus (2.5-4.5) mg/dL 09/08/16 09/08/16 09/08/16 Range/Units 05:10 05:10 07:52 WBC 17.0 H (3.8-10.6) k/uL Neutrophils # 15.1 H (1.3-7.7) k/uL Lymphocytes # 0.6 L (1.0-4.8) k/uL Monocytes # 1.1 H (0-1.0) k/uL ABG pH (7.35-7.45) ABG pCO2 (35-45) mmHg ABG pO2 (83-108) mmHg ABG HCO3 (21-25) mmol/L ABG Total CO2 (19-24) mmol/L Chloride 88 L (98-107) mmol/L Carbon Dioxide 42 H* (22-30) mmol/L BUN 24 H (7-17) mg/dL Glucose 166 H (74-99) mg/dL POC Glucose (mg/dL) 105 H (75-99) mg/dL Phosphorus 5.0 H (2.5-4.5) mg/dL Microbiology - Last 24 Hours (Table) 09/07/16 20:55 Sputum Culture - Preliminary Sputum 09/06/16 17:40 Blood Culture - Preliminary Blood No Growth after 24 hours 09/07/16 08:33 Urine Culture - Preliminary Urine,Catheterized Assessment and Plan Plan: Impression: 1 acute hypoxic and hypercapnic respiratory failure secondary to acute pulmonary edema and underlying COPD with acute exacerbation. Requiring intubation and mechanical ventilation. 2 possible underlying pneumonia, however the findings on the chest x-ray are mostly findings of pulmonary edema, strongly doubt pneumonia. 3 history of hypothyroidism, on replacement therapy. 4 history of breast cancer and previous bilateral mastectomy. Recommendation: The patient was seen and evaluated by Dr. Orellana. Her chest x-ray was reviewed. We did go ahead and order an ultrasound of the chest which shows significant amount of free flowing fluid. We'll plan for right-sided thoracentesis today. We'll continue with her current medications. We'll monitor her here in the intensive care unit another 24 hours. She is initiated on incentive spirometer and encouraged regarding increased use and cough and deep breathing exercises. She remains on bronchodilators, Symbicort, IV Solu-Medrol. We'll continue with IV Lasix as well. We will continue to follow and make further recommendations based on her clinical status. Local care time not including procedures 32 minutes.
[2016-09-08 12:43] LABS: Glucose,Whole Blood 116 mg/dL (75-99)
[2016-09-08 14:47] LABS: Hemoglobin A1C 6.1 % (4.2-6.1)
--- NOTE | 2016-09-08 14:52 | P.PN ---
Subjective Patient is awake and alert today. She was extubated last night. She is doing fairly well. Objective - Vital Signs Vital signs: Vital Signs Temp 98.2 F 09/08/16 04:00 Pulse 112 H 09/08/16 12:36 Resp 20 09/08/16 12:00 BP 126/81 09/07/16 07:40 Pulse Ox 92 L 09/08/16 12:00 Intake & Output 09/07/16 09/08/16 09/08/16 18:59 06:59 18:59 Intake Total 503.918 409.900 20 Output Total 2525 2655 560 Balance -2021.082 -2245.100 -540 Weight 90.7 kg 90.7 kg Intake: Intake, IV Titration 503.918 409.900 20 Amount ACETAMINOPHEN IV (For NPO 100 ) 1,000 mg In Empty Bag 1 bag @ 400 mls/hr IVPB Q6HR PRN Rx#:[id number] Propofol 500 mg In Empty 263.918 74.900 Bag 1 bag @ Titrate IV . Q0M TERRI Rx#:[id number] Sodium Chloride 0.9% 1, 240 235 20 000 ml @ 20 mls/hr IV . Q24H TERRI Rx#:[id number] Output: Urine 2525 2655 560 Other: Voiding Method Indwelling Catheter Indwelling Catheter Indwelling Catheter ABP, PAP, CO, CI - Last Documented Arterial Blood Pressure 176/103 - Exam General: The patient is awake and alert, in no distress Eye: there is normal conjunctiva bilaterally. Neck: The neck is supple, there is no JVD. Cardiovascular: Normal S1-S2, no S3-S4, no murmurs. Respiratory: Lungs clear to auscultation bilaterally Gastrointestinal: Abdomen is soft, nontender Musculoskeletal: There is no pedal edema. Neurological:. Speech is normal. Skin: Skin is warm and dry - Labs CBC & Chem 7: 09/08/16 05:10 09/08/16 05:10 Labs: Abnormal Lab Results - Last 24 Hours (Table) 09/07/16 09/07/16 09/07/16 Range/Units 18:48 22:54 23:08 WBC (3.8-10.6) k/uL Neutrophils # (1.3-7.7) k/uL Lymphocytes # (1.0-4.8) k/uL Monocytes # (0-1.0) k/uL ABG pH 7.49 H (7.35-7.45) ABG pCO2 57 H (35-45) mmHg ABG pO2 74 L (83-108) mmHg ABG HCO3 43 H* (21-25) mmol/L ABG Total CO2 44 H (19-24) mmol/L Chloride (98-107) mmol/L Carbon Dioxide (22-30) mmol/L BUN (7-17) mg/dL Glucose (74-99) mg/dL POC Glucose (mg/dL) 113 H 125 H (75-99) mg/dL Phosphorus (2.5-4.5) mg/dL 09/08/16 09/08/16 09/08/16 Range/Units 05:10 05:10 07:52 WBC 17.0 H (3.8-10.6) k/uL Neutrophils # 15.1 H (1.3-7.7) k/uL Lymphocytes # 0.6 L (1.0-4.8) k/uL Monocytes # 1.1 H (0-1.0) k/uL ABG pH (7.35-7.45) ABG pCO2 (35-45) mmHg ABG pO2 (83-108) mmHg ABG HCO3 (21-25) mmol/L ABG Total CO2 (19-24) mmol/L Chloride 88 L (98-107) mmol/L Carbon Dioxide 42 H* (22-30) mmol/L BUN 24 H (7-17) mg/dL Glucose 166 H (74-99) mg/dL POC Glucose (mg/dL) 105 H (75-99) mg/dL Phosphorus 5.0 H (2.5-4.5) mg/dL 09/08/16 Range/Units 12:41 WBC (3.8-10.6) k/uL Neutrophils # (1.3-7.7) k/uL Lymphocytes # (1.0-4.8) k/uL Monocytes # (0-1.0) k/uL ABG pH (7.35-7.45) ABG pCO2 (35-45) mmHg ABG pO2 (83-108) mmHg ABG HCO3 (21-25) mmol/L ABG Total CO2 (19-24) mmol/L Chloride (98-107) mmol/L Carbon Dioxide (22-30) mmol/L BUN (7-17) mg/dL Glucose (74-99) mg/dL POC Glucose (mg/dL) 116 H (75-99) mg/dL Phosphorus (2.5-4.5) mg/dL Microbiology - Last 24 Hours (Table) 09/07/16 08:33 Urine Culture - Final Urine,Catheterized 09/07/16 20:55 Gram Stain - Preliminary Sputum Sputum Culture - Preliminary 09/06/16 17:40 Blood Culture - Preliminary Blood No Growth after 24 hours Assessment and Plan Plan: 1. Acute hypercapnic respiratory failure requiring intubation and mechanical ventilation and extubated on 09/07/16 2. Acute COPD exacerbation 3. Chronic tobacco abuse 4. Hypothyroidism 5. History of breast cancer status post bilateral mastectomy with positive BRCA2 gene mutation 6. Morbid obesity and prediabetes 7. GI and DVT prophylaxis Today, I reviewed her medication list and lab work results. Continue bronchodilators and IV steroids. Appreciate pony rougher recommendations. Continue ICU care. He undergo a left sided thoracentesis this afternoon. Repeat lab work in the morning. May be transferred outside of the intensive care unit later on today.
--- NOTE | 2016-09-08 16:00 | CONS ---
Mrs. Arias is a 55-year-old female with a prior history of chronic obstructive lung disease who presented with the emergency room with severe dyspnea. She was admitted to the telemetry floor and became more dyspneic during the night, unresponsive, requiring mechanical ventilation and had severe acidosis. Cardiology consultation was requested because of an elevated BNP. I am not able to obtain any history from the patient. There is no prior admission reviewing the records from the emergency room. Patient has a history of COPD, recently has been complaining of progressive cough and progressive dyspnea. She was given some treatment without significant improvement. Her past history is remarkable for history of breast cancer, history of mastectomy. In the emergency room her chest x-ray shows moderate right and small left pleural effusion with atelectasis. Her medications at home included Ambien, Spiriva, Synthroid, [place], Symbicort, and ProAir. Review of systems and other past medical history is not available. PHYSICAL EXAMINATION: A 55-year-old female intubated, sedated, has been on norepinephrine for a short period of time. Blood pressure 108/60 with heart rate in the low 100s. HEAD: Normocephalic. EYES: Sclerae anicteric. NECK: Good carotid upstroke. LUNGS: Decreased breath sounds in the bases anteriorly. No wheezes. HEART: Regular rate and rhythm. S1, S2. No S3, no rub. ABDOMEN: Soft, positive bowel sounds. No organomegaly. EXTREMITIES: +1 edema bilaterally. LAB DATA: On admission white blood cell 12.5, hemoglobin of 15.1, platelet count 265, BUN and creatinine of 17 and 0.5. NT proBNP is 1700. Troponin 0.013 , less than 0.012 for two samples. Blood gases at 3:15 in the morning 7.05 with PCO2 of over 125. White blood cell this morning is 12.3. Her potassium is 5.9. BUN and creatinine of 19 and 0.63. Her repeat blood gas 7.49 with PCO2 of 98. Her EKG shows a sinus mechanism, rate of [address]-T wave changes. Her chest x-ray shows evidence of effusion more on the right side. IMPRESSION: 1. Respiratory failure with severe hypercapnia. I have feeling that most likely we are dealing with initial exacerbation of chronic obstructive pulmonary disease with superimposed fluid overload. The patient may have right- sided failure. Her NT proBNP is elevated, but her troponins are negative. The possibility of ischemic component is very low. 2. History of chronic obstructive pulmonary disease. 3. History of breast cancer. RECOMMENDATIONS: From the cardiac standpoint will continue on the diuresis. I will obtain echocardiogram with Doppler. We will follow her lab data and chest x -ray and depending on that further recommendations will be made. Thank you for this consult. Will follow with you. MARK
[2016-09-08 17:17] LABS: Glucose,Whole Blood 138 mg/dL (75-99)
--- NOTE | 2016-09-08 17:34 | PCN ---
OPERATIVE REPORT: Placement of a right brachial arterial line. PREOPERATIVE DIAGNOSES: Hypotension and acute respiratory failure secondary to pulmonary edema. POSTOPERATIVE DIAGNOSES: Hypotension and acute respiratory failure secondary to pulmonary edema. ANESTHESIA USED: None deployed. PROCEDURE: The patient was already in supine position. The right brachial region was prepared in sterile fashion and drapes were applied. The right brachial artery was palpated, cannulated easily and guidewire was placed in. A Cook's catheter was inserted over the guidewire, and the guidewire was removed. Good blood flow and good wave form were noted. Line was secured using 3.0 silk sutures. No evidence of any immediate complications. MTDD
[2016-09-08] MEDS: SODIUM CHLORIDE 0.9% 1,000 ML IV SCH (19:10)
[2016-09-08 20:06] LABS: Glucose,Whole Blood 197 mg/dL (75-99)
[2016-09-08] MEDS: ZOLPIDEM 5 MG TAB PO PRN (21:32)
[2016-09-08] MEDS: HYDROcodone/APAP 10-325MG 1 EACH TAB PO PRN (23:53)
[2016-09-09] MEDS: FUROSEMIDE 10 MG/ML 4 ML VIAL IV SCH (02:06)
[2016-09-09 04:30] LABS: Basophils % (A) 0 %; CH 30.5; CHCM 32.2; Eosinophils # (A) 0.1 k/uL (0-0.7); Eosinophils % (A) 1 %; HCT 42.4 % (34.0-46.0); Hypochromasia Slight; Luc # (Auto) 0.08; Luc % (Auto) 1; Lymphocytes # (A) 0.6 k/uL (1.0-4.8); Lymphocytes % (A) 4 %; MCH 31.4 pg (25.0-35.0); MCV 95.1 fL (80.0-100.0); Mean Platelet Volume 7.3; Monocytes # (A) 0.5 k/uL (0-1.0); Monocytes % (A) 3 %; Neutrophils # (A) 14.1 k/uL (1.3-7.7); Neutrophils % (A) 92 %; RBC 4.46 m/uL (3.80-5.40); RDW 13.6 % (11.5-15.5); WBC 15.4 k/uL (3.8-10.6); WBC (Perox) 15.99
[2016-09-09 04:35] LABS: Blood Urea Nitrogen 25 mg/dL (7-17); Calcium 9.1 mg/dL (8.4-10.2); Chloride 87 mmol/L (98-107); Glucose 149 mg/dL (74-99); Magnesium 2.1 mg/dL (1.6-2.3); Non-African American GFR(MDRD) >60 (>60 ml/min/1.73 sqM); Potassium 3.9 mmol/L (3.5-5.1); Sodium 138 mmol/L (137-145)
[2016-09-09 04:42] LABS: Anion Gap 10 mmol/L
[2016-09-09 04:51] LABS: Carbon Dioxide 41 mmol/L (22-30)
[2016-09-09] MEDS ORDERED: POTASSIUM CHLORIDE ER 20 MEQ TAB.ER PO SCH (06:00)
[2016-09-09 07:20] LABS: Glucose,Whole Blood 126 mg/dL (75-99)
--- NOTE | 2016-09-09 07:28 | PN ---
This is a 55-year-old lady who came in with what seems to be respiratory failure. She is recovering better. She is on breathing treatments. Breathing is easier. She is a smoker who quit recently. Denies chest pain. Stable shortness of breath. She has some pleural effusion on the left side. S1 and S2 heard normally. Short systolic murmur noted. Lungs reveal diminished air entry bilaterally, more so on the left. Abdomen and lower extremity examination is unchanged. Rhythm strip reviewed, suggests frequent episodes of PACs. I am recommending verapamil 40 mg ( ), losartan 25 mg daily and we will see what her echo shows. I suspect we are dealing more with exacerbation of COPD , plus or minus pneumonia and less likely to be cardiac etiology, but we will review the echo findings. There was a modest elevation of BNP noted. MTDD
[2016-09-09] MEDS: INSULIN LISPRO (humaLOG) 300 UNIT/3 ML VIAL SQ SCH ×4 (07:34→21:14)
[2016-09-09] MEDS: methylPREDNISolone SOD SUCCI 40 MG/ML 1 ML VIAL IV SCH ×3 (07:41→23:41)
[2016-09-09] MEDS: HEPARIN SODIUM,PORCINE 5,000 UNIT/ML 1 ML VIAL SQ SCH ×2 (07:41→21:14)
[2016-09-09] MEDS: SYMBICORT 160-4.5 MCG INHALER INHALATION SCH ×2 (07:48→20:18)
[2016-09-09] MEDS: IPRATROPIUM-ALBUTEROL 3 ML NEB INHALATION SCH ×4 (07:48→20:18)
[2016-09-09] MEDS: PANTOPRAZOLE 40 MG/10 ML VIAL IV SCH (08:22)
[2016-09-09] MEDS: VERAPAMIL 40 MG TAB PO SCH ×3 (08:22→21:14)
[2016-09-09] MEDS: LEVOTHYROXINE IVP 100 MCG/5 ML VIAL IV SCH (08:23)
--- NOTE | 2016-09-09 09:23 | P.PN ---
Subjective Patient is doing well today. She is awake and alert. No events overnight. Lungs remain tight with mild end expiratory wheezing. Objective - Vital Signs Vital signs: Vital Signs Temp 98.4 F 09/09/16 08:00 Pulse 106 H 09/09/16 08:00 Resp 20 09/09/16 08:00 BP 126/81 09/07/16 07:40 Pulse Ox 91 L 09/09/16 08:00 Intake & Output 09/08/16 09/09/16 09/09/16 18:59 06:59 18:59 Intake Total 380 720 265 Output Total 1460 1740 77 Balance -1080 -1020 188 Weight 90.7 kg 88.8 kg Intake: IV 220 40 Sodium Chloride 0.9% 1, 220 40 000 ml @ 20 mls/hr IV . Q24H TERRI Rx#:[id number] Intake, IV Titration 140 20 Amount Sodium Chloride 0.9% 1, 140 20 000 ml @ 20 mls/hr IV . Q24H TERRI Rx#:[id number] Oral 240 480 225 Output: Urine 1460 1740 77 Other: Voiding Method Indwelling Catheter Indwelling Catheter Indwelling Catheter ABP, PAP, CO, CI - Last Documented Arterial Blood Pressure 128/68 - Exam General: The patient is awake and alert, in no distress Eye: there is normal conjunctiva bilaterally. Neck: The neck is supple, there is no JVD. Cardiovascular: Normal S1-S2, no S3-S4, no murmurs. Respiratory: Lungs diminished with mild end expiratory wheezing Gastrointestinal: Abdomen is soft, nontender Musculoskeletal: There is no pedal edema. Neurological:. Speech is normal. Skin: Skin is warm and dry - Labs CBC & Chem 7: 09/09/16 04:10 09/09/16 04:10 Labs: Abnormal Lab Results - Last 24 Hours (Table) 09/08/16 09/08/16 09/08/16 Range/Units 12:41 17:16 20:05 WBC (3.8-10.6) k/uL Neutrophils # (1.3-7.7) k/uL Lymphocytes # (1.0-4.8) k/uL Chloride (98-107) mmol/L Carbon Dioxide (22-30) mmol/L BUN (7-17) mg/dL Glucose (74-99) mg/dL POC Glucose (mg/dL) 116 H 138 H 197 H (75-99) mg/dL Phosphorus (2.5-4.5) mg/dL 09/09/16 09/09/16 09/09/16 Range/Units 04:10 04:10 07:19 WBC 15.4 H (3.8-10.6) k/uL Neutrophils # 14.1 H (1.3-7.7) k/uL Lymphocytes # 0.6 L (1.0-4.8) k/uL Chloride 87 L (98-107) mmol/L Carbon Dioxide 41 H* (22-30) mmol/L BUN 25 H (7-17) mg/dL Glucose 149 H (74-99) mg/dL POC Glucose (mg/dL) 126 H (75-99) mg/dL Phosphorus 5.0 H (2.5-4.5) mg/dL Microbiology - Last 24 Hours (Table) 09/06/16 17:40 Blood Culture - Preliminary Blood No Growth after 48 hours 09/07/16 08:33 Urine Culture - Final Urine,Catheterized 09/07/16 20:55 Gram Stain - Preliminary Sputum Sputum Culture - Preliminary Assessment and Plan Plan: 1. Acute hypercapnic respiratory failure requiring intubation and mechanical ventilation and extubated on 09/07/16 2. Acute COPD exacerbation 3. Chronic tobacco abuse 4. Hypothyroidism 5. History of breast cancer status post bilateral mastectomy with positive BRCA2 gene mutation 6. Morbid obesity and prediabetes 7. GI and DVT prophylaxis Today, I reviewed her medication list and lab work results. Discontinue IV Lasix given contraction alkalosis and hypochloremia. Continue bronchodilators and IV steroids. Appreciate php website developer recommendations. Continue ICU care. Plan to undergo a left sided thoracentesis this afternoon. Repeat lab work in the morning. May be transferred outside of the intensive care unit later on today.
[2016-09-09 11:59] LABS: Glucose,Whole Blood 205 mg/dL (75-99)
--- NOTE | 2016-09-09 12:17 | P.PN ---
Subjective This is a 56-year-old female with history of severe COPD, chronic shortness of breath, recently saw her primary care physician for shortness of breath, and she was placed on multiple bronchodilators including albuterol, Symbicort, and Spiriva. Not much improvement was noted, patient presented to the ER and she was noted to have abnormal chest x-ray consistent with pulmonary edema good sized right-sided pleural effusion, underlying pneumonia is not entirely ruled out but felt to be less likely. Patient was admitted to the medical floor with the impression of congestive heart failure, COPD, and possible underlying pneumonitis. At 3 AM, patient's clinical condition deteriorated, and I was called by the A team regarding this patient. Apparently patient became very lethargic, hypercapnic, and was difficult to arouse. ABG done at that point showed a pO2 of 102, pCO2 of 144, and pH of 7.05. I believe the patient was given a brief trial of BiPAP by the A team however upon my awareness of this patient's ABG, I recommended immediate intubation. Patient was intubated and transferred to the intensive care unit. Couple of hours later, I saw the patient on consultation at 6 AM. Chest x-ray was reviewed vent settings were reviewed and adjusted presently the patient is on a tidal volume of 400, assist control rate of 14, FiO2 of 50%, and PEEP of 5. Flow rates at 50 L/m. Shortly after intubation, patient became hypotensive and she was given 2 L of fluid boluses, and she was also placed on norepinephrine. At the time of my evaluation, she was on 10 g of norepinephrine, and I was able to taper down to 2.5 g, and I have also recommended discontinuation of norepinephrine if mean arterial pressure remains above 65. After reviewing the chest x-ray, I felt that we are dealing mostly with a picture of pulmonary edema and good sized right-sided pleural effusion, hence I recommended that we'll continue with diuretics, and 40 mg of Lasix IV push was ordered. Attempted to place a left radial arterial line, however was unsuccessful, but I was able to place a right brachial arterial line to monitor patient's blood pressure continuously. And to be able to draw blood gases intermittently. I reviewed the medications, and I kept the patient on her DuoNeb, Lasix, Peridex, heparin subcu, Rocephin, level thyroxine, propofol, methylprednisolone Protonix, and IV fluid was cut down to KVO. I have also recommended echocardiogram to be done and a cardiac consultation. I believe the presentation is a presentation of congestive heart failure possibly secondary to systolic dysfunction, and COPD exacerbation, underlying pneumonia is not entirely ruled out but felt to be less likely. Ultrasound of the chest was ordered and to be done in a.m. since the patient seems to be responding well to diuretics at this point. May or may not require right sided thoracentesis. The patient is seen again today in the intensive care unit. She remained quite awake and alert and she is successfully extubated last evening. She is currently maintaining good O2 saturations in the low to mid 90s on 2 L/m per nasal cannula. She is slightly tachycardic. Afebrile. White count 17.0. She is awake and alert in no acute distress. She is dyspneic on minimal exertion however. Her chest x-ray does reveal bilateral pleural effusions right greater than left. 0.9 normal saline at KVO. The patient is seen again today 09/09/2016 in follow-up in the intensive care unit. She is awake and alert in no acute distress. She is maintaining good O2 saturations in the 90s on 2 L/m per nasal cannula. She's been hemodynamically stable. Afebrile. Her chest x-rays and ultrasounds did reveal significant amount of pleural effusions bilaterally slightly greater on the right. The plan is for thoracentesis today. Objective - Vital Signs Vital signs: Vital Signs Temp 98.1 F 09/09/16 12:00 Pulse 106 H 09/09/16 12:04 Resp 20 09/09/16 12:00 BP 126/81 09/07/16 07:40 Pulse Ox 95 09/09/16 12:00 Intake & Output 09/08/16 09/09/16 09/09/16 18:59 06:59 18:59 Intake Total 380 720 325 Output Total 1460 1740 197 Balance -1080 -1020 128 Weight 90.7 kg 88.8 kg Intake: IV 220 100 Sodium Chloride 0.9% 1, 220 100 000 ml @ 20 mls/hr IV . Q24H [facility] Rx#:[id number] Intake, IV Titration 140 20 Amount Sodium Chloride 0.9% 1, 140 20 000 ml @ 20 mls/hr IV . Q24H TER[facility] Rx#:[id number] Oral 240 480 225 Output: Urine 1460 1740 197 Other: Voiding Method Indwelling Catheter Indwelling Catheter Indwelling Catheter ABP, PAP, CO, CI - Last Documented Arterial Blood Pressure 137/81 - Exam GENERAL EXAM: Alert,fairly comfortable in no apparent distress. HEAD: Normocephalic. EYES: Normal reaction of pupils, equal size. NOSE: Clear with pink turbinates. THROAT: No erythema or exudates. NECK: No masses, no JVD. CHEST: No chest wall deformity. LUNGS: Equal air entry with crackles in the posterior bases. Diminished more so on the right. CVS: S1 and S2 normal with no audible murmurs, regular rhythm. ABDOMEN: No hepatosplenomegaly, normal bowel sounds, no guarding or rigidity. SPINE: No scoliosis or deformity SKIN: No rashes CENTRAL NERVOUS SYSTEM: No focal deficits, tone is normal in all 4 extremities. Extremities: There is trace peripheral edema. No clubbing, no cyanosis. Peripheral pulses are intact. - Labs CBC & Chem 7: 09/09/16 04:10 09/09/16 04:10 Labs: Abnormal Lab Results - Last 24 Hours (Table) 09/08/16 09/08/16 09/08/16 Range/Units 12:41 17:16 20:05 WBC (3.8-10.6) k/uL Neutrophils # (1.3-7.7) k/uL Lymphocytes # (1.0-4.8) k/uL Chloride (98-107) mmol/L Carbon Dioxide (22-30) mmol/L BUN (7-17) mg/dL Glucose (74-99) mg/dL POC Glucose (mg/dL) 116 H 138 H 197 H (75-99) mg/dL Phosphorus (2.5-4.5) mg/dL 09/09/16 09/09/16 09/09/16 Range/Units 04:10 04:10 07:19 WBC 15.4 H (3.8-10.6) k/uL Neutrophils # 14.1 H (1.3-7.7) k/uL Lymphocytes # 0.6 L (1.0-4.8) k/uL Chloride 87 L (98-107) mmol/L Carbon Dioxide 41 H* (22-30) mmol/L BUN 25 H (7-17) mg/dL Glucose 149 H (74-99) mg/dL POC Glucose (mg/dL) 126 H (75-99) mg/dL Phosphorus 5.0 H (2.5-4.5) mg/dL 09/09/16 Range/Units 11:57 WBC (3.8-10.6) k/uL Neutrophils # (1.3-7.7) k/uL Lymphocytes # (1.0-4.8) k/uL Chloride (98-107) mmol/L Carbon Dioxide (22-30) mmol/L BUN (7-17) mg/dL Glucose (74-99) mg/dL POC Glucose (mg/dL) 205 H (75-99) mg/dL Phosphorus (2.5-4.5) mg/dL Microbiology - Last 24 Hours (Table) 09/06/16 17:40 Blood Culture - Preliminary Blood No Growth after 48 hours 09/07/16 08:33 Urine Culture - Final Urine,Catheterized 09/07/16 20:55 Gram Stain - Preliminary Sputum Sputum Culture - Preliminary Assessment and Plan Plan: Impression: 1 acute hypoxic and hypercapnic respiratory failure secondary to acute pulmonary edema and underlying COPD with acute exacerbation. Requiring intubation and mechanical ventilation. Successfully extubated him a currently on 2 L/m per nasal cannula. 2 possible underlying pneumonia, however the findings on the chest x-ray are mostly findings of pulmonary edema, strongly doubt pneumonia. 3 history of hypothyroidism, on replacement therapy. 4 history of breast cancer and previous bilateral mastectomy. Recommendation: The patient was seen and evaluated by Dr. Orellana. Her chest x-ray was reviewed. We did go ahead and order an ultrasound of the chest which shows significant amount of free flowing fluid. He did attempt a right-sided thoracentesis however he was not able to access any pleural fluid. We will ask interventional radiology to do a ultrasound guided thoracentesis with both lungs eventually needing to be done. We'll continue with her current medications. She is again encouraged regarding the increased use of the incentive spirometer and cough and deep breathing exercises. She remains on bronchodilators, Symbicort, IV Solu-Medrol. She can be transferred out of the intensive care unit today. We will continue to follow and make further recommendations based on her clinical status.
[2016-09-09 13:13] LABS: Total Protein 6.2 g/dL (6.3-8.2)
--- NOTE | 2016-09-09 14:06 | US ---
EXAMINATION TYPE: US thoracentesis DATE OF EXAM: 09/09/2016 COMPARISON: Ultrasound chest 09/08/2016 HISTORY: Pleural effusion. FINDINGS: Maximal barrier technique was utilized. The skin overlying a suitable pocket of fluid was localized and the overlying skin prepped and draped. Lidocaine was used for local anesthesia. Ultras ound was used with sterile technique. A 5 [place] catheter over guide needle was advanced into the pl eural fluid collection using ultrasound guidance and the catheter was advanced and needle removed. A pproximately 1.2 liter(s) of serous fluid was removed. Catheter was withdrawn and hemostasis achieve d. There is no immediate complication. The patient discharged in stable condition without complicat ion. IMPRESSION: STATUS POST ULTRASOUND GUIDED THORACENTESIS, POST PROCEDURE CHEST X-RAY PENDING. THIS [place] OCEDURE WAS PERFORMED BY THE UNDERSIGNED. Specimen sent for laboratory analysis.
--- NOTE | 2016-09-09 14:30 | XR ---
EXAMINATION TYPE: XR chest 1V DATE OF EXAM: 09/09/2016 COMPARISON: Prior chest x-ray 09/08/2016 HISTORY: Status post right thoracentesis TECHNIQUE: Single frontal view of the chest is obtained. FINDINGS: There is interval improvement in aeration at the right lower lung. No evident pneumothorax . IMPRESSION: No evident complication status post right thoracentesis.
[2016-09-09 17:21] LABS: Glucose,Whole Blood 97 mg/dL (75-99)
[2016-09-09 17:41] LABS: RBC, Body Fluid 730 /uL
[2016-09-09] MEDS: SODIUM CHLORIDE 0.9% 1,000 ML IV SCH (20:31)
[2016-09-09 20:44] LABS: Glucose,Whole Blood 202 mg/dL (75-99)
[2016-09-09 20:59] LABS: Glucose, BF Source Pleural Fluid; LDH, Body Fluid Source Pleural Fluid; T. Protein, Body Fluid Source Pleural Fluid; Total Protein, Body Fluid 3900 mg/dL
[2016-09-09] MEDS: ZOLPIDEM 5 MG TAB PO PRN (22:31)
[2016-09-10] MEDS: LEVOTHYROXINE 75 MCG TAB PO SCH (05:58)
[2016-09-10 07:23] LABS: Glucose,Whole Blood 130 mg/dL (75-99)
[2016-09-10] MEDS: INSULIN LISPRO (humaLOG) 300 UNIT/3 ML VIAL SQ SCH ×4 (07:27→21:43)
--- NOTE | 2016-09-10 07:38 | XR ---
EXAMINATION TYPE: XR chest 1V portable DATE OF EXAM: 09/10/2016 COMPARISON: 09/09/2016 HISTORY: Postthoracentesis TECHNIQUE: Single frontal view of the chest is obtained. FINDINGS: Small bilateral pleural effusion. Apical pleural thickening on the right. No sizable pneum othorax. Hypertrophic change of the spine. Heart size stable. Nonspecific density overlying the scapu la and the left stable. IMPRESSION: 1. Bilateral lower lobe infiltrate and small effusion stable.
[2016-09-10] MEDS: methylPREDNISolone SOD SUCCI 40 MG/ML 1 ML VIAL IV SCH (07:47)
[2016-09-10] MEDS: HEPARIN SODIUM,PORCINE 5,000 UNIT/ML 1 ML VIAL SQ SCH ×2 (07:48→21:43)
[2016-09-10] MEDS: PANTOPRAZOLE 40 MG/10 ML VIAL IV SCH (07:48)
[2016-09-10] MEDS: HYDROcodone/APAP 10-325MG 1 EACH TAB PO PRN ×2 (07:48→20:45)
[2016-09-10] MEDS: VERAPAMIL 40 MG TAB PO SCH ×3 (07:48→20:47)
[2016-09-10 07:56] LABS: Basophils % (A) 0 %; CH 30.5; CHCM 32.5; Eosinophils # (A) 0.2 k/uL (0-0.7); Eosinophils % (A) 1 %; HCT 43.6 % (34.0-46.0); HGB 14.5 gm/dL (11.4-16.0); Luc # (Auto) 0.08; Luc % (Auto) 1; Lymphocytes # (A) 0.6 k/uL (1.0-4.8); Lymphocytes % (A) 4 %; MCH 31.4 pg (25.0-35.0); MCHC 33.3 g/dL (31.0-37.0); MCV 94.4 fL (80.0-100.0); Mean Platelet Volume 7.2; Monocytes # (A) 0.7 k/uL (0-1.0); Monocytes % (A) 5 %; Neutrophils # (A) 13.3 k/uL (1.3-7.7); Neutrophils % (A) 89 %; RBC 4.62 m/uL (3.80-5.40); RDW 13.6 % (11.5-15.5); WBC (Perox) 14.36
[2016-09-10 08:18] LABS: Blood Urea Nitrogen 30 mg/dL (7-17); Calcium 9.4 mg/dL (8.4-10.2); Chloride 94 mmol/L (98-107); Glucose 123 mg/dL (74-99); Magnesium 2.2 mg/dL (1.6-2.3); Non-African American GFR(MDRD) >60 (>60 ml/min/1.73 sqM); Phosphorous 4.6 mg/dL (2.5-4.5); Potassium 4.5 mmol/L (3.5-5.1); Sodium 142 mmol/L (137-145)
[2016-09-10 08:25] LABS: Anion Gap 8 mmol/L
[2016-09-10 08:26] LABS: Carbon Dioxide 40 mmol/L (22-30)
[2016-09-10] MEDS: SYMBICORT 160-4.5 MCG INHALER INHALATION SCH ×2 (09:20→19:44)
[2016-09-10] MEDS: IPRATROPIUM-ALBUTEROL 3 ML NEB INHALATION SCH ×4 (09:21→19:44)
--- NOTE | 2016-09-10 10:23 | PN ---
This lady has bilateral pleural effusion and COPD and a question of pneumonia. LV function is normal by echo. She is not in heart failure. Vital signs are stable. S1, S2 heard normally. Lungs reveal diminished air entry both sides. Abdomen and lower extremity unchanged. From a cardiac standpoint, I do not believe any intervention is necessary. Dr. Orellana will probably perform thoracentesis today. I will see this patient as needed. MARK
--- NOTE | 2016-09-10 10:34 | PCN ---
PROCEDURE: Thoracentesis, right-sided. PREOPERATIVE DIAGNOSIS: Right pleural effusion. POSTOPERATIVE DIAGNOSIS: Right pleural effusion. This was informed consent. There was universal time out. ( ) The posterior chest was marked by ultrasound. The skin was anesthetized. I tried multiple attempts to locate the fluid with the medium sized needle. I tried two different levels and was unable to locate the fluid. The patient tolerated the procedure well. I am going to have Interventional Radiology to attempt to do the thoracentesis. The food was at an increased depth of about 4 cm and maybe our needles were just not long enough. The patient again, seemed to tolerate the procedure well without immediate complications. MARK
--- NOTE | 2016-09-10 10:36 | P.PN ---
Subjective Progress note dated 09/10/2016 The patient is doing well. She was transferred out of the ICU yesterday. Interventional radiology able to use a longer needle and was able to drain the right chest. I believe the at 1.2 L out of the right chest. It was sent for analysis. The studies are pending. She's feeling better. When I went to see her, she was reloaded on the stretcher to be taken on interventional radiology to have the left side. I believe there is left less fluid on the left side than on the right. Nonetheless she is breathing better and feeling better. Less pain in the chest. Again doing much much better. No fever no chills. No nausea vomiting or diarrhea. Objective - Vital Signs Vital signs: Vital Signs Temp 99.2 F 09/10/16 07:00 Pulse 110 H 09/10/16 10:09 Resp 20 09/10/16 10:09 BP 140/76 09/10/16 10:09 Pulse Ox 90 L 09/10/16 10:09 Intake & Output 09/09/16 09/10/16 09/10/16 18:59 06:59 18:59 Intake Total 415 Output Total 257 Balance 158 Weight 84 kg Intake: IV 190 Sodium Chloride 0.9% 1, 190 000 ml @ 20 mls/hr IV . Q24H TERRI Rx#:[id number] Oral 225 Output: Urine 257 Other: Voiding Method Indwelling Catheter Toilet # Voids 1 # Bowel Movements 1 ABP, PAP, CO, CI - Last Documented Arterial Blood Pressure 137/81 - Exam No acute distress, oriented 3. HEENT examination is grossly unremarkable. Mucous membranes are moist. No oral lesions. Neck supple. Full range of motion. No adenopathy or thyromegaly. Neck veins are flat. Cardiovascular examination reveals regular rhythm rate. Heart rate about 79. S1-S2 normal. There is no S3-S4 or murmur. Lungs reveal diminished breath sounds particularly at the left base. A few scattered rhonchi throughout. No wheezes or crackles. Breath sounds are not equal. Breath sounds are better on the right than on the left. Abdomen soft bowel sounds are heard. Extremities are intact. No cyanosis clubbing or edema. Skin without rash. - Labs CBC & Chem 7: 09/10/16 07:42 09/10/16 07:42 Labs: Abnormal Lab Results - Last 24 Hours (Table) 09/09/16 09/09/16 09/09/16 Range/Units 04:10 11:57 20:43 WBC (3.8-10.6) k/uL Neutrophils # (1.3-7.7) k/uL Lymphocytes # (1.0-4.8) k/uL Chloride (98-107) mmol/L Carbon Dioxide (22-30) mmol/L BUN (7-17) mg/dL Glucose (74-99) mg/dL POC Glucose (mg/dL) 205 H 202 H (75-99) mg/dL Phosphorus (2.5-4.5) mg/dL Total Protein 6.2 L (6.3-8.2) g/dL 09/10/16 09/10/16 09/10/16 Range/Units 07:21 07:42 07:42 WBC 15.0 H (3.8-10.6) k/uL Neutrophils # 13.3 H (1.3-7.7) k/uL Lymphocytes # 0.6 L (1.0-4.8) k/uL Chloride 94 L (98-107) mmol/L Carbon Dioxide 40 H* (22-30) mmol/L BUN 30 H (7-17) mg/dL Glucose 123 H (74-99) mg/dL POC Glucose (mg/dL) 130 H (75-99) mg/dL Phosphorus 4.6 H (2.5-4.5) mg/dL Total Protein (6.3-8.2) g/dL Microbiology - Last 24 Hours (Table) 09/09/16 14:10 Gram Stain - Preliminary Pleural Fluid Body Fluid Culture - Preliminary 09/06/16 17:40 Blood Culture - Preliminary Blood No Growth after 72 hours Assessment and Plan (1) Acute exacerbation of chronic obstructive airways disease Status: Acute (2) Congestive heart failure Status: Acute (3) Pleural effusion, right Status: Acute (4) Pneumonitis Status: Acute Plan: Plan dated 09/10/2016 The patient's doing well. The left chest was done set up to be tapped today. The right chest was drained yesterday. The fluid was sent for analysis. She's feeling better. Doing much better. Breathing better. We'll continue to follow. No additional recommendations are made. Time with Patient: Less than 30 (his cough)
--- NOTE | 2016-09-10 11:14 | XR ---
EXAMINATION TYPE: XR chest 1V portable DATE OF EXAM: 09/10/2016 COMPARISON: Prior chest x-ray same date earlier time HISTORY: Status post left thoracentesis. TECHNIQUE: Single frontal view of the chest is obtained. FINDINGS: There is some improvement in aeration at the left lung base. No evident pneumothorax. IMPRESSION: No evident complication status post left thoracentesis.
[2016-09-10 12:32] LABS: Glucose,Whole Blood 175 mg/dL (75-99)
--- NOTE | 2016-09-10 13:03 | P.PN ---
Subjective Patient is doing well today. She underwent thoracentesis this morning. She denies shortness of breath or cough. Objective - Vital Signs Vital signs: Vital Signs Temp 99.2 F 09/10/16 07:00 Pulse 104 H 09/10/16 10:45 Resp 20 09/10/16 10:45 BP 128/80 09/10/16 10:45 Pulse Ox 93 L 09/10/16 10:45 Intake & Output 09/09/16 09/10/16 09/10/16 18:59 06:59 18:59 Intake Total 415 Output Total 257 Balance 158 Weight 84 kg Intake: IV 190 Sodium Chloride 0.9% 1, 190 000 ml @ 20 mls/hr IV . Q24H TERRI Rx#:[id number] Oral 225 Output: Urine 257 Other: Voiding Method Indwelling Catheter Toilet # Voids 1 # Bowel Movements 1 ABP, PAP, CO, CI - Last Documented Arterial Blood Pressure 137/81 - Exam General: The patient is awake and alert, in no distress Eye: there is normal conjunctiva bilaterally. Neck: The neck is supple, there is no JVD. Cardiovascular: Normal S1-S2, no S3-S4, no murmurs. Respiratory: Lungs diminished with mild end expiratory wheezing Gastrointestinal: Abdomen is soft, nontender Musculoskeletal: There is no pedal edema. Neurological:. Speech is normal. Skin: Skin is warm and dry - Labs CBC & Chem 7: 09/10/16 07:42 09/10/16 07:42 Labs: Abnormal Lab Results - Last 24 Hours (Table) 09/09/16 09/09/16 09/10/16 Range/Units 04:10 20:43 07:21 WBC (3.8-10.6) k/uL Neutrophils # (1.3-7.7) k/uL Lymphocytes # (1.0-4.8) k/uL Chloride (98-107) mmol/L Carbon Dioxide (22-30) mmol/L BUN (7-17) mg/dL Glucose (74-99) mg/dL POC Glucose (mg/dL) 202 H 130 H (75-99) mg/dL Phosphorus (2.5-4.5) mg/dL Total Protein 6.2 L (6.3-8.2) g/dL 09/10/16 09/10/16 09/10/16 Range/Units 07:42 07:42 12:30 WBC 15.0 H (3.8-10.6) k/uL Neutrophils # 13.3 H (1.3-7.7) k/uL Lymphocytes # 0.6 L (1.0-4.8) k/uL Chloride 94 L (98-107) mmol/L Carbon Dioxide 40 H* (22-30) mmol/L BUN 30 H (7-17) mg/dL Glucose 123 H (74-99) mg/dL POC Glucose (mg/dL) 175 H (75-99) mg/dL Phosphorus 4.6 H (2.5-4.5) mg/dL Total Protein (6.3-8.2) g/dL Microbiology - Last 24 Hours (Table) 09/07/16 20:55 Gram Stain - Final Sputum Sputum Culture - Final Wendy albicans 09/09/16 14:10 Gram Stain - Preliminary Pleural Fluid Body Fluid Culture - Preliminary 09/06/16 17:40 Blood Culture - Preliminary Blood No Growth after 72 hours Assessment and Plan Plan: 1. Acute hypercapnic respiratory failure requiring intubation and mechanical ventilation and extubated on 09/07/16 2. Acute COPD exacerbation 3. Chronic tobacco abuse 4. Bilateral pleural effusion status post thoracentesis awaiting fluid analysis and cytology 5. Hypothyroidism 6. History of breast cancer status post bilateral mastectomy with positive BRCA2 gene mutation 7. Morbid obesity and prediabetes 8. GI and DVT prophylaxis Today, I reviewed her medication list and lab work results. Continue current regimen. Appreciate consultants recommendation Repeat lab work in the morning. May be transferred outside of the intensive care unit later on today.
[2016-09-10 17:14] LABS: Glucose,Whole Blood 104 mg/dL (75-99)
[2016-09-10] MEDS: ZOLPIDEM 5 MG TAB PO PRN (20:51)
[2016-09-10] MEDS: SODIUM CHLORIDE 0.9% 1,000 ML IV SCH (20:55)
[2016-09-10 21:09] LABS: Glucose,Whole Blood 101 mg/dL (75-99)
[2016-09-11] MEDS: LEVOTHYROXINE 75 MCG TAB PO SCH (05:36)
[2016-09-11] MEDS: IPRATROPIUM-ALBUTEROL 3 ML NEB INHALATION SCH ×2 (07:11→10:58)
[2016-09-11] MEDS: SYMBICORT 160-4.5 MCG INHALER INHALATION SCH (07:11)
[2016-09-11] MEDS ORDERED: predniSONE 20 MG TAB PO SCH (07:30)
[2016-09-11 07:40] LABS: Glucose,Whole Blood 101 mg/dL (75-99)
[2016-09-11 07:48] VITALS: BP 123/53; RESP 19; TEMP 97.9
[2016-09-11] MEDS: INSULIN LISPRO (humaLOG) 300 UNIT/3 ML VIAL SQ SCH ×2 (07:48→11:11)
[2016-09-11] MEDS: VERAPAMIL 40 MG TAB PO SCH (08:11)
[2016-09-11] MEDS: HEPARIN SODIUM,PORCINE 5,000 UNIT/ML 1 ML VIAL SQ SCH (08:11)
[2016-09-11] MEDS: HYDROcodone/APAP 10-325MG 1 EACH TAB PO PRN (08:12)
[2016-09-11] MEDS: PANTOPRAZOLE 40 MG/10 ML VIAL IV SCH (08:13)
[2016-09-11 08:41] LABS: Basophils % (A) 0 %; CH 30.3; CHCM 32.2; Eosinophils # (A) 0.1 k/uL (0-0.7); Eosinophils % (A) 1 %; HCT 43.7 % (34.0-46.0); HDW 3.05; HGB 14.5 gm/dL (11.4-16.0); Hypochromasia Slight; Luc # (Auto) 0.13; Luc % (Auto) 1; Lymphocytes # (A) 1.5 k/uL (1.0-4.8); Lymphocytes % (A) 13 %; MCH 31.3 pg (25.0-35.0); MCHC 33.2 g/dL (31.0-37.0); MCV 94.5 fL (80.0-100.0); Mean Platelet Volume 7.7; Monocytes # (A) 0.7 k/uL (0-1.0); Monocytes % (A) 6 %; Neutrophils % (A) 79 %; RBC 4.63 m/uL (3.80-5.40); RDW 13.5 % (11.5-15.5); WBC 11.3 k/uL (3.8-10.6); WBC (Perox) 11.49
[2016-09-11 08:53] LABS: Anion Gap 10 mmol/L; Blood Urea Nitrogen 32 mg/dL (7-17); Calcium 9.1 mg/dL (8.4-10.2); Carbon Dioxide 32 mmol/L (22-30); Chloride 95 mmol/L (98-107); Glucose 171 mg/dL (74-99); Magnesium 1.8 mg/dL (1.6-2.3); Non-African American GFR(MDRD) >60 (>60 ml/min/1.73 sqM); Phosphorous 3.3 mg/dL (2.5-4.5); Potassium 3.8 mmol/L (3.5-5.1); Sodium 137 mmol/L (137-145)
--- NOTE | 2016-09-11 09:03 | XR ---
EXAMINATION TYPE: XR chest 1V portable DATE OF EXAM: 09/11/2016 COMPARISON: 09/10/2016 HISTORY: Pleural effusion TECHNIQUE: Single frontal view of the chest is obtained. FINDINGS: There is a small pleural effusion on the right stable from the previous exam. No sizable p leural effusion on the left. Bilateral basilar consolidation. Correlate for mild central venous conge stion. No pneumothorax. IMPRESSION: 1. Stable bilateral consolidation and small right pleural effusion. Correlate for mild central venous congestion.
[2016-09-11 10:41] VITALS: PULSE 104
--- NOTE | 2016-09-11 11:00 | P.PN ---
Subjective Progress note dated 09/10/2016 The patient is doing well. She was transferred out of the ICU yesterday. Interventional radiology able to use a longer needle and was able to drain the right chest. I believe the at 1.2 L out of the right chest. It was sent for analysis. The studies are pending. She's feeling better. When I went to see her, she was reloaded on the stretcher to be taken on interventional radiology to have the left side. I believe there is left less fluid on the left side than on the right. Nonetheless she is breathing better and feeling better. Less pain in the chest. Again doing much much better. No fever no chills. No nausea vomiting or diarrhea. Progress note dated 09/11/2016 55-year-old female status post right thoracentesis 2 days ago with 1.2 L removed and left thoracentesis performed yesterday was 750 mL of fluid removed. She's doing relatively well. She tells me that she is going to be discharged possibly today. Anyway, she'll follow-up in the office. His see my partner in the past. Apparently he said to her that if she would quit smoking for at least 6 months, he would refer her for possible lung transplantation. Anyway she's feeling much much improved. Much less shortness of breath. No cough. No wheezing. No chest pain or chest discomfort. No fever no chills. No nausea vomiting or diarrhea. Objective - Vital Signs Vital signs: Vital Signs Temp 97.9 F 09/11/16 07:48 Pulse 104 H 09/11/16 08:00 Resp 19 09/11/16 08:00 BP 123/53 09/11/16 07:48 Pulse Ox 94 L 09/11/16 07:48 Intake & Output 09/10/16 09/11/16 09/11/16 18:59 06:59 18:59 Intake Total 1000 Balance 1000 Intake: IV 1000 Sodium Chloride 0.9% 1, 1000 000 ml @ 20 mls/hr IV . Q24H TERRI Rx#:[id number] Other: Voiding Method Toilet # Voids 2 1 # Bowel Movements 0 ABP, PAP, CO, CI - Last Documented Arterial Blood Pressure 137/81 - Exam No acute distress, oriented 3. HEENT examination is grossly unremarkable. Mucous membranes are moist. No oral lesions. Neck supple. Full range of motion. No adenopathy or thyromegaly. Neck veins are flat. Cardiovascular examination reveals regular rhythm rate. Heart rate about 79. S1-S2 normal. There is no S3-S4 or murmur. Lungs reveal diminished breath sounds bilaterally. A few scattered rhonchi noted. Air exchange is reasonable. Breath sounds are much improved. Still some dullness at both bases. Abdomen soft bowel sounds are heard. Extremities are intact. No cyanosis clubbing or edema. Skin without rash. - Labs CBC & Chem 7: 09/11/16 08:12 09/11/16 08:12 Labs: Abnormal Lab Results - Last 24 Hours (Table) 09/10/16 09/10/16 09/10/16 Range/Units 12:30 17:13 20:53 WBC (3.8-10.6) k/uL Neutrophils # (1.3-7.7) k/uL Chloride (98-107) mmol/L Carbon Dioxide (22-30) mmol/L BUN (7-17) mg/dL Glucose (74-99) mg/dL POC Glucose (mg/dL) 175 H 104 H 101 H (75-99) mg/dL Plasma Lactic Acid Morgan (0.7-2.0) mmol/L 09/11/16 09/11/16 09/11/16 Range/Units 07:08 08:12 08:12 WBC 11.3 H (3.8-10.6) k/uL Neutrophils # 9.0 H (1.3-7.7) k/uL Chloride 95 L (98-107) mmol/L Carbon Dioxide 32 H (22-30) mmol/L BUN 32 H (7-17) mg/dL Glucose 171 H (74-99) mg/dL POC Glucose (mg/dL) 101 H (75-99) mg/dL Plasma Lactic Acid [place] (0.7-2.0) mmol/L 09/11/16 Range/Units 08:12 WBC (3.8-10.6) k/uL Neutrophils # (1.3-7.7) k/uL Chloride (98-107) mmol/L Carbon Dioxide (22-30) mmol/L BUN (7-17) mg/dL Glucose (74-99) mg/dL POC Glucose (mg/dL) (75-99) mg/dL Plasma Lactic Acid Morgan 2.1 H* (0.7-2.0) mmol/L Microbiology - Last 24 Hours (Table) 09/06/16 17:40 Blood Culture - Preliminary Blood No Growth after 96 hours 09/07/16 20:55 Gram Stain - Final Sputum Sputum Culture - Final Wendy albicans 09/09/16 14:10 Gram Stain - Preliminary Pleural Fluid Body Fluid Culture - Preliminary Assessment and Plan (1) Acute exacerbation of chronic obstructive airways disease Status: Acute (2) Congestive heart failure Status: Acute (3) Pleural effusion, right Status: Acute (4) Pneumonitis Status: Acute Plan: Plan dated 09/10/2016 The patient's doing well. The left chest was done set up to be tapped today. The right chest was drained yesterday. The fluid was sent for analysis. She's feeling better. Doing much better. Breathing better. We'll continue to follow. No additional recommendations are made. Plan dated 09/11/2016 The patient's doing much better. She feels much better. She's had bilateral thoracentesis. 1.2 L removed from the right chest and 7 50 mL removed from the left chest. From our perspective the patient could be discharged home. She is hoping to be discharged home. She'll follow-up with us in the office and see my partner. No additional recommendations are made. Time with Patient: Less than 30
--- NOTE | 2016-09-11 11:22 | US ---
Ultrasound-guided therapeutic and diagnostic thoracentesis DATE OF EXAM: 09/10/2016 CLINICAL HISTORY: pleural effusion The procedure was discussed with the patient. The risks, complications, benefits, and alternatives we re discussed and any questions were answered. Informed consent was obtained. The patient was placed supine on the ultrasound table and prepped and draped in the usual sterile fas hion. All elements of maximal barrier and sterile technique were utilized. Under ultrasound guidance, access into the pleural space was obtained, via the thoracentesis catheter system and direct ultrasound guidance.Юлия roximately 0.750 liters of straw-colored fluid was removed. The patient was stable throughout the procedure and remained stable upon discharge from Department of Radiology. IMPRESSION: 1. Successful therapeutic thoracentesis under ultrasound guidance.
--- NOTE | 2016-09-11 11:46 | P.DS ---
Providers Date of admission: 09/06/16 18:50 Expected date of discharge: 09/11/16 Attending physician: Memo Rodriguez Consults: 09/06/16 18:50 Consult Physician Routine Consulting Provider: Georgie Quinn Consult Reason/Comments: COPD, CHF, pneumonitis Do you want consulting provider notified?: Yes 09/07/16 07:48 Consult Physician Routine Consulting Provider: Janay Watson Consult Reason/Comments: CHF Do you want consulting provider notified?: Yes Primary care physician: [facility] Hospital Course: This is a 55-year-old female with past medical history noted below who presented to the hospital with worsening shortness of breath and was found to have significant hypercapnic respiratory failure requiring intubation and mechanical ventilation. Patient was admitted to the intensive care unit. She was seen and evaluated by pulmonology. Her overall condition improved throughout her hospital stay. She was found to have bilateral pleural effusion and underwent bilateral thoracentesis. On the day of discharge, patient was up ambulating in the hallway with no difficulty. She was counseled extensively about tobacco cessation. Due to his list of her medical problems addressed during this hospitalization. 1. Acute hypercapnic respiratory failure requiring intubation and mechanical ventilation and extubated on 09/07/16 2. Acute COPD exacerbation 3. Chronic tobacco abuse 4. Bilateral pleural effusion status post thoracentesis awaiting fluid analysis and cytology 5. Hypothyroidism 6. History of breast cancer status post bilateral mastectomy with positive BRCA2 gene mutation 7. Morbid obesity and prediabetes Patient Condition at Discharge: Stable Plan - Discharge Summary New Discharge Prescriptions: New predniSONE 40 mg PO W/BRKFST #10 tab Verapamil HCl [Verapamil ER] 120 mg PO DAILY #30 tablet.er Continue Budesonide/Formoterol Fumarate [Symbicort 160-4.5 Mcg Inhaler] 2 puff INHALATION RT-BID Albuterol Sulfate [Proair Respiclick] 1 puff PO RT-Q6H PRN PRN Reason: Shortness Of Breath Tiotropium [place] [Spiriva] 1 cap INHALATION RT-DAILY Levothyroxine Sodium [Synthroid] 150 mcg PO DAILY Ibuprofen [Motrin] 600 mg PO BID PRN PRN Reason: Pain HYDROcodone/APAP 10-325MG [Busy 10-325] 1 tab PO BID Discontinued Zolpidem [Ambien] 5 mg PO HS PRN PRN Reason: Insomnia Discharge Medication List Albuterol Sulfate [Proair Respiclick] 1 puff PO RT-Q6H PRN 09/06/16 [History] Budesonide/Formoterol Fumarate [Symbicort 160-4.5 Mcg Inhaler] 2 puff INHALATION RT-BID 09/06/16 [History] HYDROcodone/APAP 10-325MG [Busy 10-325] 1 tab PO BID 09/06/16 [History] Ibuprofen [Motrin] 600 mg PO BID PRN 09/06/16 [History] Levothyroxine Sodium [Synthroid] 150 mcg PO DAILY 09/06/16 [History] Tiotropium [place] [Spiriva] 1 cap INHALATION RT-DAILY 09/06/16 [History] Verapamil HCl [Verapamil ER] 120 mg PO DAILY #30 tablet.er 09/11/16 [Rx] predniSONE 40 mg PO W/BRKFST #10 tab 09/11/16 [Rx] Follow up Appointment(s)/Referral(s): Memo Rodriguez MD [Primary Care Provider] - 1-2 days Georgie Quinn MD [STAFF PHYSICIAN] - 1 Week Discharge Disposition: HOME SELF-CARE
--- NOTE | 2016-09-12 00:09 | PN ---
Mrs. Arias is a 55-year-old female who has a history of chronic severe tobacco use who presented with symptoms of progressive dyspnea and respiratory failure requiring mechanical ventilation. She is doing well this morning. She has undergone bilateral thoracentesis. She has a history of breast cancer. She is anxious to go home. She denies any dizziness of palpitations. The pathology of the fluid is not available at this point. PHYSICAL EXAMINATION: Blood pressure 120/50 with a heart rate in the low 100s. LUNGS: no wheezes, with decreased air exchange. Improved air exchange at the bases. HEART: Regular rate and rhythm. S1, S2. No S3. No rub. ABDOMEN: Soft, non-tender. EXTREMITIES: No edema. IMPRESSION: 1. Respiratory failure with exacerbation of chronic obstructive pulmonary disease. 2. Pleural effusion. 3. Chronic tobacco use. 4. History of breast cancer. RECOMMENDATIONS: Patient will be discharged home today and will follow as an outpatient. MARK
== END 2016-09-11 13:01 | disposition home or self-care (01) | DRG 208 ==
LOC: EC 16:57 → 6SEL 18:50 → 6ICU 09-07 03:37 → 4MS4W 09-09 16:21
PROVIDERS: ADMIT Internal Medicine; ATTEND Internal Medicine
PROC: 5A1935Z Respiratory Ventilation, Less than 24 Consecutive Hours (ICD-10-PCS; principal; 2016-09-07)
PROC: 03HY32Z Insertion of Monitoring Device into Upper Artery, Percutaneous Approach (ICD-10-PCS; 2016-09-07)
PROC: 0BH17EZ Insertion of Endotracheal Airway into Trachea, Via Natural or Artificial Opening (ICD-10-PCS; 2016-09-07)
PROC: 4A133B1 Monitoring of Arterial Pressure, Peripheral, Percutaneous Approach (ICD-10-PCS; 2016-09-07)
PROC: 4A133J1 Monitoring of Arterial Pulse, Peripheral, Percutaneous Approach (ICD-10-PCS; 2016-09-07)
PROC: 0W993ZX Drainage of Right Pleural Cavity, Percutaneous Approach, Diagnostic (ICD-10-PCS; 2016-09-09)
PROC: 0W993ZX Drainage of Right Pleural Cavity, Percutaneous Approach, Diagnostic (ICD-10-PCS; 2016-09-10)
DX: J44.0 Chronic obstructive pulmonary disease with (acute) lower respiratory infection (principal); J96.01 Acute respiratory failure with hypoxia; J18.9 Pneumonia, unspecified organism; J90 Pleural effusion, not elsewhere classified; J96.02 Acute respiratory failure with hypercapnia; E87.2 Acidosis; I50.20 Unspecified systolic (congestive) heart failure; I95.9 Hypotension, unspecified; E66.01 Morbid (severe) obesity due to excess calories; J44.1 Chronic obstructive pulmonary disease with (acute) exacerbation; F17.200 Nicotine dependence, unspecified, uncomplicated; R73.03 Prediabetes; E03.9 Hypothyroidism, unspecified; Z68.31 Body mass index [BMI] 31.0-31.9, adult; Z79.51 Long term (current) use of inhaled steroids; Z85.3 Personal history of malignant neoplasm of breast; Z90.13 Acquired absence of bilateral breasts and nipples; Z79.899 Other long term (current) drug therapy; Z88.1 Allergy status to other antibiotic agents; Y84.8 Other medical procedures as the cause of abnormal reaction of the patient, or of later complication, without mention of misadventure at the time of the procedure
CPT/HCPCS: 32555; 36415; 36600; 71010; 71020; 76604; 80048; 80053; 81003; 82550; 82553; 82805; 82945; 83036; 83605; 83615; 83735; 83880; 84100; 84155; 84157; 84484; 85025; 85379; 85610; 85730; 87040; 87070; 87086; 87205; 88108; 88305; 88341; 88342; 89050; 93005; 93306; 94002; 94640; 94760; 96365; 96375; 99291

== ENCOUNTER 2016-09-16 12:16 | Inpatient (IN) | payer OTHER ==
[2016-09-16] MEDS ORDERED: methylPREDNISolone SOD SUCCI 125 MG/2 ML VIAL IV STA (12:39)
[2016-09-16] MEDS ORDERED: IPRATROPIUM-ALBUTEROL 3 ML NEB INHALATION STA (12:39)
--- NOTE | 2016-09-16 12:41 | ED ---
General Adult HPI - General Chief complaint: Shortness of Breath Stated complaint: SOB-sent by Time Seen by Provider: 09/16/16 12:35 Source: patient, RN notes reviewed Mode of arrival: wheelchair Limitations: no limitations - History of Present Illness Initial comments: Patient is a pleasant 55-year-old female presenting to the emergency department with difficulty in breathing. Patient states symptoms are worse in the last couple of days. Patient saw her doctor with low oxygen saturation and was advised to come to the hospital. Patient was intubated approximately 9 days ago. Patient states she is not as bad as she was at that point. No chest pain. No cough or fever. Symptoms are similar to her chronic COPD. - Related Data Home Medications Medication Instructions Recorded Confirmed Albuterol Sulfate [Proair 1 puff PO RT-Q6H PRN 09/06/16 09/16/16 Respiclick] Budesonide/Formoterol Fumarate 2 puff INHALATION RT-BID 09/06/16 09/16/16 [Symbicort 160-4.5 Mcg Inhaler] Ibuprofen [Motrin] 600 mg PO BID PRN 09/06/16 09/16/16 Levothyroxine Sodium [Synthroid] 150 mcg PO DAILY 09/06/16 09/16/16 Tiotropium [place] [Spiriva] 1 cap INHALATION RT-DAILY 09/06/16 09/16/16 Ipratropium-Albuterol Nebulize 3 ml INHALATION RT-Q6H PRN 09/16/16 09/16/16 [Duoneb 0.5 mg-3 mg/3 ml Soln] Previous Rx's Medication Instructions Recorded HYDROcodone/APAP 10-325MG [[place] 1 tab PO Q8H PRN #90 tab 09/11/16 10-325] Verapamil HCl [Verapamil ER] 120 mg PO DAILY #30 tablet.er 09/11/16 Allergies Allergy/AdvReac Type Severity Reaction Status Date / Time ciprofloxacin [From Cipro] Allergy Rash/Hives Verified 09/16/16 13:20 Review of Systems ROS Statement: Those systems with pertinent positive or pertinent negative responses have been documented in the HPI. ROS Other: All systems not noted in ROS Statement are negative. Constitutional: Denies: fever Eyes: Denies: eye pain ENT: Denies: ear pain Respiratory: Reports: dyspnea. Denies: cough Cardiovascular: Denies: chest pain Endocrine: Denies: fatigue Gastrointestinal: Denies: abdominal pain Genitourinary: Denies: urgency Musculoskeletal: Denies: back pain Skin: Denies: rash Neurological: Denies: weakness Past Medical History Past Medical History: Cancer, COPD, Thyroid Disorder Additional Past Medical History / Comment(s): breast CA History of Any Multi-Drug Resistant Organisms: None Reported Additional Past Surgical History / Comment(s): bilateral mastectomy Past Psychological History: No Psychological Hx Reported Smoking Status: Former smoker - Past Family History Mother Family Medical History: Unable to Obtain Father Family Medical History: Unable to Obtain General Exam Limitations: no limitations General appearance: alert, in no apparent distress Head exam: Present: atraumatic Eye exam: Present: normal appearance, PERRL ENT exam: Present: normal oropharynx Neck exam: Present: normal inspection Respiratory exam: Present: wheezes, decreased breath sounds Cardiovascular Exam: Present: regular rate, normal rhythm GI/Abdominal exam: Present: soft. Absent: tenderness Extremities exam: Present: normal inspection. Absent: pedal edema, calf tenderness Neurological exam: Present: alert Psychiatric exam: Present: normal affect, normal mood Skin exam: Present: normal color Course Vital Signs 09/16/16 09/16/16 09/16/16 12:28 12:44 13:08 Temperature 99.1 F Pulse Rate 99 100 77 Respiratory 22 20 Rate Blood Pressure 117/76 125/63 O2 Sat by Pulse 88 L 92 L Oximetry 09/16/16 09/16/16 09/16/16 13:19 13:26 14:00 Temperature Pulse Rate 84 101 H 98 Respiratory 20 18 Rate Blood Pressure 135/75 136/76 O2 Sat by Pulse 91 L 93 L Oximetry EKG Findings - EKG Comments: EKG Findings:: Normal sinus rhythm 100. MI 126. QRS 90. QT 348. QTC 448. Normal axis. Normal QRS. Normal ST-T. Medical Decision Making - Medical Decision Making Patient reevaluated and resting comfortably in bed. Pulse ox is resistant to 92 % on 2 L. Case was discussed in detail with Dr. Baldwin, who will admit for Dr. Everett. Patient has previously seen Dr. Sheldon. Patient states she has had thoracentesis however does not have results yet. - Lab Data Result diagrams: 09/16/16 12:50 09/16/16 12:50 Lab Results 09/16/16 09/16/16 09/16/16 Range/Units 12:50 12:50 12:50 WBC 7.7 (3.8-10.6) k/uL RBC 4.41 (3.80-5.40) m/uL Hgb 13.6 (11.4-16.0) gm/dL Hct 42.2 (34.0-46.0) % MCV 95.7 (80.0-100.0) fL MCH 30.9 (25.0-35.0) pg MCHC 32.3 (31.0-37.0) g/dL RDW 13.8 (11.5-15.5) % Plt Count 259 (150-450) k/uL Neutrophils % 79 % Lymphocytes % 11 % Monocytes % 7 % Eosinophils % 2 % Basophils % 0 % Neutrophils # 6.1 (1.3-7.7) k/uL Lymphocytes # 0.8 L (1.0-4.8) k/uL Monocytes # 0.5 (0-1.0) k/uL Eosinophils # 0.1 (0-0.7) k/uL Basophils # 0.0 (0-0.2) k/uL Hypochromasia Slight Sodium 141 (137-145) mmol/L Potassium 4.2 (3.5-5.1) mmol/L Chloride 101 (98-107) mmol/L Carbon Dioxide 33 H (22-30) mmol/L Anion Gap 7 mmol/L BUN 16 (7-17) mg/dL Creatinine 0.59 (0.52-1.04) mg/dL Est GFR (MDRD) Af Amer >60 (>60 ml/min/1.73 sqM) Est GFR (MDRD) Non-Af >60 (>60 ml/min/1.73 sqM) Glucose 127 H (74-99) mg/dL Calcium 9.0 (8.4-10.2) mg/dL Total Bilirubin 0.3 (0.2-1.3) mg/dL AST 19 (14-36) U/L ALT 37 (9-52) U/L Alkaline Phosphatase 88 (38-126) U/L NT-Pro-B Natriuret Pep 282 pg/mL Total Protein 5.7 L (6.3-8.2) g/dL Albumin 3.1 L (3.5-5.0) g/dL - Radiology Data Radiology results: image reviewed (Chest x-ray shows right greater than left effusion) Disposition Clinical Impression: Acute exacerbation of chronic obstructive airways disease, Pleural effusion, right Disposition: ADMITTED IP TO THIS HOSP Referrals: Memo Rodriguez MD [Primary Care Provider] - 1-2 days Decision Time: 15:01
[2016-09-16 13:21] LABS: Basophils % (A) 0 %; CH 30.6; CHCM 32.1; Eosinophils # (A) 0.1 k/uL (0-0.7); Eosinophils % (A) 2 %; HCT 42.2 % (34.0-46.0); HDW 3.09; HGB 13.6 gm/dL (11.4-16.0); Hypochromasia Slight; Luc % (Auto) 1; Lymphocytes # (A) 0.8 k/uL (1.0-4.8); Lymphocytes % (A) 11 %; MCH 30.9 pg (25.0-35.0); MCHC 32.3 g/dL (31.0-37.0); MCV 95.7 fL (80.0-100.0); Mean Platelet Volume 7.5; Monocytes # (A) 0.5 k/uL (0-1.0); Monocytes % (A) 7 %; Neutrophils # (A) 6.1 k/uL (1.3-7.7); Neutrophils % (A) 79 %; RBC 4.41 m/uL (3.80-5.40); RDW 13.8 % (11.5-15.5); WBC 7.7 k/uL (3.8-10.6); WBC (Perox) 7.04
--- NOTE | 2016-09-16 13:36 | XR ---
EXAMINATION TYPE: XR chest 2V DATE OF EXAM: 09/16/2016 HISTORY: difficulty breathing. REFERENCE: Previous study dated 09/11/2016. FINDINGS: There is an enlarging right pleural effusion. There is a smaller left pleural effusion. Hea rt size is obscured. There is atelectatic change present at the lung bases.. IMPRESSION: WORSENING BILATERAL EFFUSIONS WITH BIBASILAR ATELECTASIS.
[2016-09-16 13:46] LABS: AST 19 U/L (14-36); Alkaline Phosphatase 88 U/L (38-126); Anion Gap 7 mmol/L; Blood Urea Nitrogen 16 mg/dL (7-17); Carbon Dioxide 33 mmol/L (22-30); Chloride 101 mmol/L (98-107); Glucose 127 mg/dL (74-99); Non-African American GFR(MDRD) >60 (>60 ml/min/1.73 sqM); Potassium 4.2 mmol/L (3.5-5.1); Sodium 141 mmol/L (137-145); Total Bilirubin 0.3 mg/dL (0.2-1.3); Total Protein 5.7 g/dL (6.3-8.2)
[2016-09-16 13:52] LABS: ALT 37 U/L (9-52)
[2016-09-16] MEDS ORDERED: IPRATROPIUM-ALBUTEROL 3 ML NEB INHALATION PRN (15:01)
[2016-09-16] MEDS ORDERED: NYSTATIN 100,000 UNIT/ML SUSP 500,000 UNIT/5 ML CUP PO SCH (18:00)
[2016-09-16] MEDS: methylPREDNISolone SOD SUCCI 125 MG/2 ML VIAL IV SCH (20:05)
[2016-09-16] MEDS: IPRATROPIUM-ALBUTEROL 3 ML NEB INHALATION SCH (20:16)
[2016-09-16 20:42] LABS: Glucose,Whole Blood 189 mg/dL (75-99)
[2016-09-16] MEDS ORDERED: IBUPROFEN 600 MG TAB PO PRN (21:30)
[2016-09-16] MEDS: HYDROcodone/APAP 10-325MG 1 EACH TAB PO PRN (22:26)
[2016-09-16] MEDS: ZOLPIDEM 10 MG TAB PO PRN (22:26)
[2016-09-16] MEDS: SYMBICORT 160-4.5 MCG INHALER INHALATION SCH (22:36)
[2016-09-17] MEDS: NYSTATIN 100,000 UNIT/ML SUSP 500,000 UNIT/5 ML CUP PO SCH ×5 (00:12→21:20)
[2016-09-17] MEDS: methylPREDNISolone SOD SUCCI 125 MG/2 ML VIAL IV SCH ×5 (00:12→23:14)
[2016-09-17] MEDS: LEVOTHYROXINE 75 MCG TAB PO SCH (05:48)
[2016-09-17] MEDS: SYMBICORT 160-4.5 MCG INHALER INHALATION SCH ×3 (07:19→21:31)
[2016-09-17] MEDS: IPRATROPIUM-ALBUTEROL 3 ML NEB INHALATION SCH ×5 (07:19→21:31)
[2016-09-17 07:23] LABS: Glucose,Whole Blood 135 mg/dL (75-99)
[2016-09-17] MEDS: VERAPAMIL SR 120 MG TABLET.ER PO SCH (08:34)
[2016-09-17 11:06] LABS: Glucose,Whole Blood 214 mg/dL (75-99)
[2016-09-17] MEDS ORDERED: RX INFO: IV CONTRAST WAS GIVEN 1 EACH MISC MISCELLANE PRN (11:32)
--- NOTE | 2016-09-17 11:35 | P.HPIM ---
History of Present Illness H&P Date: 09/17/16 Chief Complaint: Acute hypoxic respiratory failure This is a 55-year-old female with past medical history noted below significant for underlying COPD with recent hospitalization requiring intubation and mechanical ventilation. Patient was released last week and said that she was doing okay for the first couple of days afterward she started feeling short of breath. She was having mild wheezing. She came to my office yesterday for a follow-up visit and was found to be significantly dyspneic and hypoxic. O2 sat duration was 85% on room air. He was noted to have mild end-expiratory wheezing and was advised to go to the emergency room immediately for further evaluation. She was evaluated in the emergency room and currently admitted to the hospital for further treatment. She is on IV steroids and bronchodilators. She is feeling a lot better now that she is maintained on oxygen supplement through nasal cannula. Review of Systems Review of system: 14 points review of systems were obtained and were negative except to what were mentioned in the HPI. Past Medical History Past Medical History: Cancer, COPD, Thyroid Disorder Additional Past Medical History / Comment(s): breast CA-"positive for brca2 gene mutation. 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 pleural effusions. History of Any Multi-Drug Resistant Organisms: None Reported Additional Past Surgical History / Comment(s): bilateral mastectomy, nisreen thoracentesis, rt ear"mass removed-benign", rt foot sx d/t shattered heel. Past Anesthesia/Blood Transfusion Reactions: No Reported Reaction Smoking Status: Former smoker - Past Family History Mother Family Medical History: COPD Additional Family Medical History / Comment(s): emphysema Father Family Medical History: Myocardial Infarction ([place]) Medications and Allergies Home Medications Medication Instructions Recorded Confirmed Type Albuterol Sulfate [Proair 1 puff PO RT-Q6H PRN 09/06/16 09/16/16 History Respiclick] Budesonide/Formoterol Fumarate 2 puff INHALATION RT-BID 09/06/16 09/16/16 History [Symbicort 160-4.5 Mcg Inhaler] Ibuprofen [Motrin] 600 mg PO BID PRN 09/06/16 09/16/16 History Levothyroxine Sodium [Synthroid] 150 mcg PO DAILY 09/06/16 09/16/16 History Tiotropium [place] [Spiriva] 1 cap INHALATION RT-DAILY 09/06/16 09/16/16 History Ipratropium-Albuterol Nebulize 3 ml INHALATION RT-Q6H PRN 09/16/16 09/16/16 History [Duoneb 0.5 mg-3 mg/3 ml Soln] Zolpidem [Ambien] 10 mg PO HS PRN 09/16/16 09/16/16 History Allergies Allergy/AdvReac Type Severity Reaction Status Date / Time ciprofloxacin [From Cipro] Allergy Rash/Hives Verified 09/16/16 13:20 Physical Exam Vitals: Vital Signs Temp Pulse Pulse Resp BP BP Pulse Ox 09/17/16 11:17 92 09/17/16 07:32 88 09/17/16 07:19 88 09/17/16 07:00 98 F 105 H 20 138/76 92 L 09/17/16 00:00 102 H 16 09/16/16 22:36 129/66 09/16/16 21:00 96.8 F L 102 H 16 181/86 94 L 09/16/16 20:31 96 09/16/16 20:17 94 94 L 09/16/16 16:54 98.5 F 97 20 120/67 94 L 09/16/16 14:00 98 18 136/76 93 L 09/16/16 13:26 101 H 20 135/75 91 L 09/16/16 13:19 84 09/16/16 13:08 77 09/16/16 12:44 100 20 125/63 92 L 09/16/16 12:28 99.1 F 99 22 117/76 88 L Intake and Output 09/16/16 09/17/16 09/17/16 22:59 06:59 14:59 Intake Total 305 100 Balance 305 100 Intake: Oral 305 100 Other: # Voids 1 2 General: The patient is awake and alert, in no distress Eye: there is normal conjunctiva bilaterally. Neck: The neck is supple, there is no JVD. Cardiovascular: Normal S1-S2, no S3-S4, no murmurs. Respiratory: Lungs are diminished with mild end expiratory wheezing Gastrointestinal: Abdomen is soft, nontender Musculoskeletal: There is no pedal edema. Neurological:. Speech is normal. Skin: Skin is warm and dry Results CBC & Chem 7: 09/16/16 12:50 09/16/16 12:50 Labs: Abnormal Lab Results - Last 24 Hours (Table) 09/16/16 09/16/16 09/16/16 Range/Units 12:50 12:50 20:17 Lymphocytes # 0.8 L (1.0-4.8) k/uL Carbon Dioxide 33 H (22-30) mmol/L Glucose 127 H (74-99) mg/dL POC Glucose (mg/dL) 189 H (75-99) mg/dL Total Protein 5.7 L (6.3-8.2) g/dL Albumin 3.1 L (3.5-5.0) g/dL 09/17/16 09/17/16 Range/Units 07:20 11:04 Lymphocytes # (1.0-4.8) k/uL Carbon Dioxide (22-30) mmol/L Glucose (74-99) mg/dL POC Glucose (mg/dL) 135 H 214 H (75-99) mg/dL Total Protein (6.3-8.2) g/dL Albumin (3.5-5.0) g/dL Thrombosis Risk Factor Assmnt - Choose All That Apply Any of the Below Risk Factors Present?: Yes Each Factor Represents 1 point: Abnormal pulmonary function (COPD), Age 41-60 years, Obesity (BMI >25) Other Risk Factors: Yes Each Risk Factor Represents 2 Points: Malignancy Other congenital or acquired thrombophilia - If yes, enter type in comment: No Thrombosis Risk Factor Assessment Total Risk Factor Score: 5 Thrombosis Risk Factor Assessment Level: High Risk Assessment and Plan Plan: 1. Acute COPD exacerbation 2. Acute hypoxic respiratory failure 3. Recurrent metastatic breast cancer with malignant pleural effusion bilaterally 4. Bilateral pleural effusion status post bilateral thoracentesis during last admission 5. Hypothyroidism 6. History of breast cancer status post bilateral mastectomy with positive BRCA2 gene mutation 7. Morbid obesity and prediabetes 8. History of tobacco abuse now quit approximately 2 month ago Today, I reviewed her medication list and lab work results. Continue bronchodilators and IV steroids for now. Oncology consulted for plan of treatment for recently found metastatic pleural effusion.
[2016-09-17] MEDS: HYDROcodone/APAP 10-325MG 1 EACH TAB PO PRN ×2 (11:49→21:23)
--- NOTE | 2016-09-17 14:03 | P.CNPUL ---
History of Present Illness Consult date: 09/17/16 Reason for consult: dyspnea, pleural effusion History of present illness: 55-year-old female patient who got rehospitalized yesterday because of worsening shortness of breath. The patient also has found to have a recurrent right-sided pleural effusion. Based on her worsening shortness of breath and ongoing respiratory difficulties and Pulmicort consultation was requested. This patient is known to have COPD. She was recently hospitalized for an acute respiratory failure. During her early hospitalization it was approximately 10 days ago the patient had to be intubated and mechanically ventilated for a few days and following that she was extubated successfully. At that point it was realized the patient has bilateral pleural effusion worse on the right. The patient later stage had underwent bilateral thoracentesis and the pleural fluid was evacuated successfully. Nevertheless, unfortunate news is that the patient was found to have malignant pleural effusion with pleural fluid consistent with breast cancer bilaterally. Note that this patient has previous history of breast cancer. This was originally on the right. The patient was found to have BRCA 2 mutation. She underwent bilateral mastectomy followed by systemic chemotherapy. She also had reconstructive surgery on her breast. The patient apparently had received also some radiation therapy to her right breast. She had been disease free for the past >5 years. She had seen Dr. Mckeon. At this point in time, the patient is pacing shortness of breath. She is a chronic smoker. Does not have oxygen at home. She's been utilizing abdominal breast units [id number]. Ring this current admission the patient was found to be short of breath bronchospastic and wheezy with a pulse ox in the mid 80s. She was started on bronchodilators and systemic steroids. Repeat chest x-ray shows a moderate-sized right-sided pleural effusion. No history of any DVT or pulmonary embolism. No pleurisy. No hemoptysis. No cardiac disease /angina. Strong family history for breast cancer at the young age. Review of Systems All systems: negative Constitutional: Denies chills, Denies fever Eyes: denies blurred vision, denies pain Ears, nose, mouth and throat: Denies headache, Denies sore throat Cardiovascular: Denies chest pain, Denies shortness of breath Respiratory: Denies cough Gastrointestinal: Denies abdominal pain, Denies diarrhea, Denies nausea, Denies vomiting Genitourinary: Denies dysuria, Denies hematuria Musculoskeletal: Denies myalgias Integumentary: Denies pruritus, Denies rash Neurological: Denies numbness, Denies weakness Psychiatric: Denies anxiety, Denies depression Endocrine: Denies fatigue, Denies weight change Past Medical History Past Medical History: Cancer, COPD, Thyroid Disorder Additional Past Medical History / Comment(s): History of right-sided breast CA- "positive for brca2 gene mutation, the patient is status post bilateral mastectomy chemotherapy and radiation therapy with subsequent breast reconstruction surgery, COPD, hypothyroidism, recent hospitalization for acute respiratory failure requiring intubation mechanical ventilation, bilateral pleural effusion, malignant at this stage with breast primary. History of Any Multi-Drug Resistant Organisms: None Reported Additional Past Surgical History / Comment(s): bilateral mastectomy, nisreen thoracentesis, rt ear"mass removed-benign", rt foot sx d/t shattered heel. Past Anesthesia/Blood Transfusion Reactions: No Reported Reaction Smoking Status: Former smoker - Past Family History Mother Family Medical History: COPD Additional Family Medical History / Comment(s): emphysema Father Family Medical History: Myocardial Infarction ([place]) Medications and Allergies Home Medications Medication Instructions Recorded Confirmed Type Albuterol Sulfate [Proair 1 puff PO RT-Q6H PRN 09/06/16 09/16/16 History Respiclick] Budesonide/Formoterol Fumarate 2 puff INHALATION RT-BID 09/06/16 09/16/16 History [Symbicort 160-4.5 Mcg Inhaler] Ibuprofen [Motrin] 600 mg PO BID PRN 09/06/16 09/16/16 History Levothyroxine Sodium [Synthroid] 150 mcg PO DAILY 09/06/16 09/16/16 History Tiotropium [place] [Spiriva] 1 cap INHALATION RT-DAILY 09/06/16 09/16/16 History Ipratropium-Albuterol Nebulize 3 ml INHALATION RT-Q6H PRN 09/16/16 09/16/16 History [Duoneb 0.5 mg-3 mg/3 ml Soln] Zolpidem [Ambien] 10 mg PO HS PRN 09/16/16 09/16/16 History Allergies Allergy/AdvReac Type Severity Reaction Status Date / Time ciprofloxacin [From Cipro] Allergy Rash/Hives Verified 09/16/16 13:20 Physical Exam Vitals: Vital Signs Temp Pulse Pulse Resp BP BP Pulse Ox 09/17/16 11:32 88 09/17/16 11:17 92 09/17/16 07:32 88 09/17/16 07:19 88 09/17/16 07:00 98 F 105 H 20 138/76 92 L 09/17/16 00:00 102 H 16 09/16/16 22:36 129/66 09/16/16 21:00 96.8 F L 102 H 16 181/86 94 L 09/16/16 20:31 96 09/16/16 20:17 94 94 L 09/16/16 16:54 98.5 F 97 20 120/67 94 L 09/16/16 14:00 98 18 136/76 93 L Intake and Output 09/16/16 09/17/16 09/17/16 22:59 06:59 14:59 Intake Total 305 100 Balance 305 100 Intake: Oral 305 100 Other: # Voids 1 2 The patient appeared well nourished and normally developed. Vital signs as documented. Head exam is unremarkable. No scleral icterus or corneal arcus noted. Neck is without jugular venous distension, thyromegaly, or carotid bruits. Carotid upstrokes are brisk bilaterally. Lungs are diminished bilaterally especially in the right lung base where there is significant for management and the breath sounds and the patient has some prolongation of expiratory phase of breathing and scattered expiratory wheezes typical of COPD exacerbation. Anteriorly, the patient has bilateral breast reconstruction surgery.. Cardiac exam reveals the PMI to be normally sized and situated. Rhythm is regular. First and second heart sounds normal. No murmurs, rubs or gallops. Abdominal exam reveals normal bowel sounds, no masses, no organomegaly and no aortic enlargement. Extremities are nonedematous and both femoral and pedal pulses are normal. Results - Laboratory Findings CBC and BMP: 09/16/16 12:50 09/16/16 12:50 Abnormal lab findings: Abnormal Labs 09/16/16 09/16/16 09/16/16 12:50 12:50 20:17 Lymphocytes # 0.8 L Carbon Dioxide 33 H Glucose 127 H POC Glucose (mg/dL) 189 H Total Protein 5.7 L Albumin 3.1 L 09/17/16 09/17/16 07:20 11:04 Lymphocytes # Carbon Dioxide Glucose POC Glucose (mg/dL) 135 H 214 H Total Protein Albumin - Diagnostic Findings Chest x-ray: image reviewed Assessment and Plan Plan: Assessment 1 acute shortness of breath and hypoxic respiratory failure due to COPD exacerbation recurrent bilateral malignant pleural effusion more so on the right. Shortness of breath is due to combination of both and both factors are contributing to her increased dyspnea. 2 malignant bilateral pleural effusion, right more than left, diagnosis was confirmed during a recent thoracentesis and this is a breast primary 3 metastatic breast cancer details discussed above 4 COPD 5 hypothyroidism 6 recent hospitalization for acute respiratory failure requiring intubation mechanical ventilation 7 BRCA 2 gene mutation with previous history of bilateral mastectomy Plan We'll treat this patient for an acute COPD exacerbation with DuoNeb nebulized treatments and IV Solu-Medrol. At the same time the patient will need a CAT scan of the chest to assess the extent of the pleural effusion and make sure there is no entrapment of the lung or any other solid masses involving the lungs /typical of pulmonary metastases. The pleural effusion was drained earlier and it is consistent with breast cancer. We'll make consider repeating the thoracentesis on the right if the patient continued to be symptomatic. Alternatively, we may even consider placement of a Pleurx catheter if this becomes an ongoing or recurrent problem. An oncology consultation will be requested. A consult was placed Dr. Rodriguez. We'll review the CAT scan will make further recommendations accordingly.
[2016-09-17] MEDS ORDERED: LORazepam 2 MG/ML SYRINGE IV STA (14:50)
--- NOTE | 2016-09-17 16:02 | CT ---
EXAMINATION TYPE: CT chest w con DATE OF EXAM: 09/17/2016 COMPARISON: NONE HISTORY: Pleural effusion CT DLP: 423.50 mGycm Automated exposure control for dose reduction was used. CONTRAST: CT scan of the chest is performed with IV Contrast, patient injected with 100 mL of Omnipaque 240. FINDINGS: There are bilateral breast implants in place. There are large, bilateral pleural effusions, greater on the right than the left with associated rela xation atelectasis at both lung bases. There is a somewhat spiculated 2.4 x 1.8 x 1.5 cm right middle lobe masslike density. No other defini te parenchymal masses are seen. There is no significant axillary, internal mammary, mediastinal or hilar adenopathy. There is approxi mately 3.7 mm pericardial thickening or fluid. The heart is not enlarged. There are 3 low attenuating lesions within the liver. There is a 1.3 cm lesion in the posterior segme nt of the right lobe of the liver and a 1.5 cm in the anterior segment of the right lobe of the liver . There is a 1.6 cm lesion in the medial segment of the left lobe of the liver and a more questionabl e 11 mm lesion in the medial segment of the left lobe of the liver. There is a prominent 1.5 to 1.6 cm calculus in the upper pole of the left kidney. Both adrenal glands are unremarkable. The remaining abdominal viscera there are visualized are unremarkable. There is hypertrophic change and spondylosis deformans within the thoracic spine. There are several l ytic lesions within the thoracic spine. I could not exclude metastases. IMPRESSION: 1. 2.4 X 1.8 X 1.5 CM RIGHT MIDDLE LOBE MASSLIKE DENSITY WHICH MAY REPRESENT THE PATIENT'S PRIMARY MA LIGNANCY. 2. LARGE, BILATERAL PLEURAL EFFUSIONS, GREATER ON THE RIGHT THAN THE LEFT WITH ASSOCIATED RELAXATION ATELECTASIS. 3. AT LEAST 3 IF NOT 4 HEPATIC LESIONS COMPATIBLE WITH METASTASES. 5. LYTIC LESIONS THROUGHOUT THE SPINE CONSISTENT WITH BONY METASTASES.
[2016-09-17] MEDS: HEPARIN SODIUM,PORCINE 5,000 UNIT/ML 1 ML VIAL SQ SCH ×2 (17:29→23:13)
[2016-09-17 17:30] LABS: Glucose,Whole Blood 148 mg/dL (75-99)
--- NOTE | 2016-09-17 17:31 | MR ---
EXAMINATION TYPE: MR brain wo con DATE OF EXAM: 09/17/2016 COMPARISON: None HISTORY: Mets, DX of lung cancer, History of lung cancer metastasis CONTRAST: Performed utilizing 0 mL intravenous MultiHance gadolinium contrast. TECHNIQUE: Multiplanar, multiecho imaging on a 3.0 [place] magnet is performed through the brain. Stud y is performed within 24 hours of arrival to the hospital. The craniovertebral junction is normal. The pituitary is normal. Diffusion-weighted imaging is performed. No abnormal hyperintensity is present to suggest an acute i ntracranial infarct or acute ischemic change. There are scattered punctate areas of hyperintensity on T2 and Inversion Recovery weighted sequences which are non-specific but can be related to microvascular ischemic changes. Suspicious metastatic di sease is not identified. Ventricles and sulci are appropriate for the patient age. There is a 1.2 cm hyperintense nodule within the left subcutaneous tissue peripheral to the left paro tid gland. This is isointense with the fat on inversion recovery weighted sequences suggestive of a c yst like structure less likely and can be related to a lymph node. Metastasis is not excluded. Series 401 image 8 IMPRESSIONS: 1. No acute intracranial process. 2. Left subcutaneous collection. Metastatic lesion is not excluded. Consider CT neck with contrast fo r additional evaluation.
--- NOTE | 2016-09-17 18:52 | P.CONS ---
History of Present Illness - Reason for Consult Consult date: 09/17/16 metastatic breast cancer Requesting physician: Georgie Quinn - Chief Complaint SOB - History of Present Illness Ms. Arias is a pleasant female pt with history of right breast mass noted on self palpation in 10/08, she had a core biopsy, revealing high grade ductal carcinoma, ER/IN strongly positive and Her 2 negative, mastectomy Apr 2009 revealed T2N2 disease with 17/20 nodes positive, she was BRCA 2 positive. She had prophylactic mastectomy on the left with bilateral reconstruction. The was treated with adjuvant chemo with dose dense adriamycin and cytoxan followed by taxol then radiation and was started on Tamoxifen on completion of treatment , she was switched over to Arimidex in August 2010, she last saw Dr. George in 01/10 and did not follow up after that as she had lost her insurance. She was seen by Dr. Curtis in 2012, she continued on Arimidex and was c/o generalized bone and joint pain, he had her hold arimidex at that appt in Nov 2012 and ordered hormone levels to evaluate menopausal status-pt never returned. Pt states that she has followed up with "any Dr. who will listen to her". She states not feeling well since April of this year, she has had progressive fatigue, poor energy levels and poor appetite. In the last month she has had progressive abd distension, early satiety, nausea and SOB, she has lost about 15 lbs. Her breathing is what brought her to the hospital. She is s/p thoracentesis, cytology positive for metastatic breast cancer, CT showed lesions in liver, lung and bone lesions. Review of Systems All systems: negative Constitutional: Reports as per HPI Past Medical History Past Medical History: Cancer, COPD, Thyroid Disorder Additional Past Medical History / Comment(s): History of right-sided breast CA- "positive for brca2 gene mutation, the patient is status post bilateral mastectomy chemotherapy and radiation therapy with subsequent breast reconstruction surgery, COPD, hypothyroidism, recent hospitalization for acute respiratory failure requiring intubation mechanical ventilation, bilateral pleural effusion, malignant at this stage with breast primary. History of Any Multi-Drug Resistant Organisms: None Reported Additional Past Surgical History / Comment(s): bilateral mastectomy, nisreen thoracentesis, rt ear"mass removed-benign", rt foot sx d/t shattered heel. Past Anesthesia/Blood Transfusion Reactions: No Reported Reaction Smoking Status: Former smoker - Past Family History Mother Family Medical History: COPD Additional Family Medical History / Comment(s): emphysema Father Family Medical History: Myocardial Infarction ([place]) Medications and Allergies Home Medications Medication Instructions Recorded Confirmed Type Albuterol Sulfate [Proair 1 puff PO RT-Q6H PRN 09/06/16 09/16/16 History Respiclick] Budesonide/Formoterol Fumarate 2 puff INHALATION RT-BID 09/06/16 09/16/16 History [Symbicort 160-4.5 Mcg Inhaler] Ibuprofen [Motrin] 600 mg PO BID PRN 09/06/16 09/16/16 History Levothyroxine Sodium [Synthroid] 150 mcg PO DAILY 09/06/16 09/16/16 History Tiotropium [place] [Spiriva] 1 cap INHALATION RT-DAILY 09/06/16 09/16/16 History Ipratropium-Albuterol Nebulize 3 ml INHALATION RT-Q6H PRN 09/16/16 09/16/16 History [Duoneb 0.5 mg-3 mg/3 ml Soln] Zolpidem [Ambien] 10 mg PO HS PRN 09/16/16 09/16/16 History Allergies Allergy/AdvReac Type Severity Reaction Status Date / Time ciprofloxacin [From Cipro] Allergy Rash/Hives Verified 09/16/16 13:20 Physical Exam Vitals: Vital Signs Temp Pulse Pulse Resp BP Pulse Ox 09/17/16 11:32 88 09/17/16 11:17 92 09/17/16 07:32 88 09/17/16 07:19 88 09/17/16 07:00 98 F 105 H 20 138/76 92 L 09/17/16 00:00 102 H 16 09/16/16 22:36 129/66 09/16/16 21:00 96.8 F L 102 H 16 181/86 94 L 09/16/16 20:31 96 09/16/16 20:17 94 94 L Intake and Output 09/17/16 09/17/16 09/17/16 06:59 14:59 22:59 Intake Total 100 Balance 100 Intake: Oral 100 Other: # Voids 2 3 - Constitutional General appearance: cooperative, no acute distress, obese - EENT Eyes: anicteric sclerae, PERRLA, poor dentition, normal appearance ENT: hearing grossly normal, normal oropharynx - Neck Neck: no lymphadenopathy - Respiratory diminished - Cardiovascular Rhythm: regular Heart sounds: normal: S1, S2 leg Peripheral Edema: bilateral: None - Gastrointestinal General gastrointestinal: distended, normal bowel sounds Localized gastrointestinal: tender: RUQ - Integumentary multiple bruises noted on arms and abdomen in various stages of healing Integumentary: pale - Neurologic Neurologic: CNII-XII intact - Musculoskeletal Musculoskeletal: strength equal bilaterally - Psychiatric Psychiatric: A&O x's 3, appropriate affect, intact judgment & insight Results CBC & Chem 7: 09/16/16 12:50 09/16/16 12:50 Labs: Abnormal Lab Results - Last 24 Hours (Table) 09/16/16 09/17/16 09/17/16 Range/Units 20:17 07:20 11:04 POC Glucose (mg/dL) 189 H 135 H 214 H (75-99) mg/dL 09/17/16 Range/Units 17:29 POC Glucose (mg/dL) 148 H (75-99) mg/dL CT scan - chest: report reviewed MRI - head: report reviewed (report reviewed after pt seen) Assessment and Plan (1) Metastatic breast cancer Narrative/Plan: Pt has history of T2N0M0, stage IIIA, ER/IN +, Her 2 negative, BRCA 2 positive breast cancer diagnosed in 2009 with no follow up, she had surgery and did adjuvant chemo and radiation, started tamoxifen then changes to arimidex but did not complete 10 years of hormonal therapy. Pt presents with metastatic disease as her pleural effusion was positive for malignancy, she also has tumor present in the liver, lung and bones. This was discussed with her and all her questions answered. Cytology pending hormonal status, but based on history and last menses 8 years ago femara will be initiated to begin therapy. Pt will have follow up appt sched with Dr. Rodriguez for next week Status: Acute
[2016-09-17 20:46] LABS: Glucose,Whole Blood 140 mg/dL (75-99)
[2016-09-17] MEDS: LETROZOLE 2.5 MG TAB PO SCH (21:20)
[2016-09-17] MEDS: ZOLPIDEM 10 MG TAB PO PRN (21:24)
[2016-09-17 23:47] VITALS: RESP 18
[2016-09-18] MEDS: LEVOTHYROXINE 75 MCG TAB PO SCH (05:28)
[2016-09-18] MEDS: methylPREDNISolone SOD SUCCI 125 MG/2 ML VIAL IV SCH ×2 (06:00→14:02)
[2016-09-18] MEDS: SYMBICORT 160-4.5 MCG INHALER INHALATION SCH (07:07)
[2016-09-18] MEDS: IPRATROPIUM-ALBUTEROL 3 ML NEB INHALATION SCH ×2 (07:07→11:15)
[2016-09-18 07:08] LABS: Glucose,Whole Blood 133 mg/dL (75-99)
[2016-09-18 07:21] VITALS: BP 156/94; TEMP 97.3
[2016-09-18] MEDS: NYSTATIN 100,000 UNIT/ML SUSP 500,000 UNIT/5 ML CUP PO SCH ×2 (07:45→14:03)
[2016-09-18] MEDS: HYDROcodone/APAP 10-325MG 1 EACH TAB PO PRN (07:48)
[2016-09-18] MEDS: HEPARIN SODIUM,PORCINE 5,000 UNIT/ML 1 ML VIAL SQ SCH (07:50)
[2016-09-18] MEDS: VERAPAMIL SR 120 MG TABLET.ER PO SCH (07:50)
[2016-09-18] MEDS: LETROZOLE 2.5 MG TAB PO SCH (07:50)
[2016-09-18 11:19] VITALS: PULSE 94
[2016-09-18 11:27] LABS: Glucose,Whole Blood 209 mg/dL (75-99)
--- NOTE | 2016-09-18 13:19 | P.DS ---
Providers Date of admission: 09/16/16 15:03 Expected date of discharge: 09/18/16 Attending physician: Memo Rodriguez Consults: 09/16/16 15:01 Consult Physician Routine Consulting Provider: Georgie Quinn Consult Reason/Comments: dyspnea Do you want consulting provider notified?: Yes 09/17/16 11:34 Consult Physician Routine Consulting Provider: Ramirez Curtis Consult Reason/Comments: Breast Cancer Do you want consulting provider notified?: Yes Primary care physician: [facility] Course: This is a 55-year-old female with history of breast cancer diagnosed originally in 2009 status post bilateral mastectomy, radiation and chemotherapy, who presented to the hospital with worsening shortness of breath and was found to have metastatic disease. She was recently hospitalized and underwent bilateral thoracentesis positive for malignancy. 1. Metastatic breast cancer ER/MA positive, and HER2 negative, now with metastasis to the right middle lobe, liver, and spine. Plan to start Femara 2. Acute COPD exacerbation 3. Acute hypoxic respiratory failure 4. Recurrent metastatic breast cancer with malignant pleural effusion bilaterally 5. Bilateral pleural effusion status post bilateral thoracentesis during last admission 6. Hypothyroidism 7. Morbid obesity and prediabetes 8. History of tobacco abuse now quit approximately 2 month ago Plan - Discharge Summary New Discharge Prescriptions: New Letrozole [Femara] 2.5 mg PO DAILY #30 tab Nystatin 100,000 Unit/ml Susp [Mycostatin Oral Susp] 500,000 unit PO QID #16 dose predniSONE 40 mg PO DAILY #10 tab Continue Budesonide/Formoterol Fumarate [Symbicort 160-4.5 Mcg Inhaler] 2 puff INHALATION RT-BID Albuterol Sulfate [Proair Respiclick] 1 puff PO RT-Q6H PRN PRN Reason: Shortness Of Breath Tiotropium [place] [Spiriva] 1 cap INHALATION RT-DAILY Levothyroxine Sodium [Synthroid] 150 mcg PO DAILY Ibuprofen [Motrin] 600 mg PO BID PRN PRN Reason: Pain Verapamil HCl [Verapamil ER] 120 mg PO DAILY #30 tablet.er HYDROcodone/APAP 10-325MG [[place] 10-325] 1 tab PO Q8H PRN #90 tab PRN Reason: Pain Ipratropium-Albuterol Nebulize [Duoneb 0.5 mg-3 mg/3 ml Soln] 3 ml INHALATION RT-Q6H PRN PRN Reason: Shortness Of Breath Zolpidem [Ambien] 10 mg PO HS PRN PRN Reason: sleep Discharge Medication List Albuterol Sulfate [Proair Respiclick] 1 puff PO RT-Q6H PRN 09/06/16 [History] Budesonide/Formoterol Fumarate [Symbicort 160-4.5 Mcg Inhaler] 2 puff INHALATION RT-BID 09/06/16 [History] Ibuprofen [Motrin] 600 mg PO BID PRN 09/06/16 [History] Levothyroxine Sodium [Synthroid] 150 mcg PO DAILY 09/06/16 [History] Tiotropium [place] [Spiriva] 1 cap INHALATION RT-DAILY 09/06/16 [History] HYDROcodone/APAP 10-325MG [[place] 10-325] 1 tab PO Q8H PRN #90 tab 09/11/16 [Rx] Verapamil HCl [Verapamil ER] 120 mg PO DAILY #30 tablet.er 09/11/16 [Rx] Ipratropium-Albuterol Nebulize [Duoneb 0.5 mg-3 mg/3 ml Soln] 3 ml INHALATION RT -Q6H PRN 09/16/16 [History] Zolpidem [Ambien] 10 mg PO HS PRN 09/16/16 [History] Letrozole [Femara] 2.5 mg PO DAILY #30 tab 09/18/16 [Rx] Nystatin 100,000 Unit/ml Susp [Mycostatin Oral Susp] 500,000 unit PO QID #16 dose 09/18/16 [Rx] predniSONE 40 mg PO DAILY #10 tab 09/18/16 [Rx] Follow up Appointment(s)/Referral(s): Memo Rodriguez MD [Primary Care Provider] - 1 Week Activity/Diet/Wound Care/Special Instructions: o2 arrange with [facility] : Discharge Disposition: HOME SELF-CARE
--- NOTE | 2016-09-18 13:27 | XR ---
EXAMINATION TYPE: XR chest 2V DATE OF EXAM: 09/18/2016 COMPARISON: 09/16/2016 HISTORY: Difficulty breathing FINDINGS: 2 views are submitted. There are bilateral pleural effusions with cardiomegaly and bibasilar infiltra te. There is a diffuse interstitial pattern. Stable biapical pleural. IMPRESSION: 1. Correlate for CHF. Bilateral infiltrate and pleural effusion stable.
--- NOTE | 2016-09-18 14:02 | P.PN ---
Subjective Principal diagnosis: Recurrent breast cancer 55-year-old female patient who got rehospitalized yesterday because of worsening shortness of breath. The patient also has found to have a recurrent right-sided pleural effusion. Based on her worsening shortness of breath and ongoing respiratory difficulties and Pulmicort consultation was requested. This patient is known to have COPD. She was recently hospitalized for an acute respiratory failure. During her early hospitalization it was approximately 10 days ago the patient had to be intubated and mechanically ventilated for a few days and following that she was extubated successfully. At that point it was realized the patient has bilateral pleural effusion worse on the right. The patient later stage had underwent bilateral thoracentesis and the pleural fluid was evacuated successfully. Nevertheless, unfortunate news is that the patient was found to have malignant pleural effusion with pleural fluid consistent with breast cancer bilaterally. Note that this patient has previous history of breast cancer. This was originally on the right. The patient was found to have BRCA 2 mutation. She underwent bilateral mastectomy followed by systemic chemotherapy. She also had reconstructive surgery on her breast. The patient apparently had received also some radiation therapy to her right breast. She had been disease free for the past >5 years. She had seen Dr. Mckeon. At this point in time, the patient is pacing shortness of breath. She is a chronic smoker. Does not have oxygen at home. She's been utilizing abdominal breast units [id number]. Ring this current admission the patient was found to be short of breath bronchospastic and wheezy with a pulse ox in the mid 80s. She was started on bronchodilators and systemic steroids. Repeat chest x-ray shows a moderate-sized right-sided pleural effusion. No history of any DVT or pulmonary embolism. No pleurisy. No hemoptysis. No cardiac disease /angina. Strong family history for breast cancer at the young age. The patient was seen again today 09/18/2016 in follow-up on the regular medical floor. She is awake and alert in no acute distress. She is still having dyspnea on minimal exertion. She continues with bilateral pleural effusions right greater than left. Requiring 3 L/m per nasal cannula to maintain O2 saturations greater than 90%. She is aware of her recurrent breast cancer status. She's been initiated on Femara. She is interested in having a thoracentesis knowing that the effusions may continue to recur and that she may need a more permanent solution such as a pigtail catheter insertion. She is to go home. Objective - Vital Signs Vital signs: Vital Signs Temp 97.3 F L 09/18/16 07:00 Pulse 94 09/18/16 11:28 Resp 18 09/18/16 08:00 BP 156/94 09/18/16 07:00 Pulse Ox 95 09/18/16 07:00 Intake & Output 09/17/16 09/18/16 09/18/16 18:59 06:59 18:59 Other: # Voids 3 2 - Exam The patient appeared well nourished and normally developed. Vital signs as documented. Head exam is unremarkable. No scleral icterus or corneal arcus noted. Neck is without jugular venous distension, thyromegaly, or carotid bruits. Carotid upstrokes are brisk bilaterally. Lungs are diminished bilaterally especially in the right lung base where there is significant for management and the breath sounds and the patient has some prolongation of expiratory phase of breathing and scattered expiratory wheezes typical of COPD exacerbation. Anteriorly, the patient has bilateral breast reconstruction surgery.. Cardiac exam reveals the PMI to be normally sized and situated. Rhythm is regular. First and second heart sounds normal. No murmurs, rubs or gallops. Abdominal exam reveals normal bowel sounds, no masses, no organomegaly and no aortic enlargement. Extremities are nonedematous and both femoral and pedal pulses are normal. - Labs CBC & Chem 7: 09/16/16 12:50 09/16/16 12:50 Labs: Abnormal Lab Results - Last 24 Hours (Table) 09/17/16 09/17/16 09/18/16 Range/Units 17:29 20:34 07:06 POC Glucose (mg/dL) 148 H 140 H 133 H (75-99) mg/dL 09/18/16 Range/Units 11:23 POC Glucose (mg/dL) 209 H (75-99) mg/dL Assessment and Plan Plan: Assessment 1 acute on chronic hypoxic respiratory failure due to COPD exacerbation recurrent bilateral malignant pleural effusion more so on the right. Shortness of breath is due to combination of both and both factors are contributing to her increased dyspnea. Status post right-sided thoracentesis with 1 L of fluid removed. No evidence of pneumothorax on chest x-ray. 2 malignant bilateral pleural effusion, right more than left, diagnosis was confirmed during a recent thoracentesis and this is a breast primary 3 metastatic breast cancer details discussed above, initiated on Femara 4 COPD 5 hypothyroidism 6 recent hospitalization for acute respiratory failure requiring intubation mechanical ventilation 7 BRCA 2 gene mutation with previous history of bilateral mastectomy, ER/OK +, Her 2 - Plan The patient was seen and evaluated by Dr. Quinn. He did go ahead and perform a right-sided thoracentesis which one liter of fluid was removed. The patient is cleared for discharge from the pulmonary standpoint. She she'll follow-up in our office in 1-2 weeks' time. We'll repeat a chest x-ray then. She will continue with her COPD medications. She is encouraged to call sooner with any recurrence of symptoms or other questions or concerns.
--- NOTE | 2016-09-19 11:38 | PCN ---
THORACENTESIS Location: Right side. Indication: Pleural effusion. A time-out was completed verifying correct patient, procedure, site, positioning , and implant (s) or special equipment if applicable. Ultrasound guidance was not used and appropriate fluid pocket was identified and marked. Patient was positioned, prepped and draped in usual sterile fashion. Lidocaine was used to anesthetize the area. A Thoracentesis catheter was introduced into the pleural space and fluid was removed. Blood loss was none. A chest x-ray was ordered to evaluate for pneumothorax. Total Fluid Removed: 1.1 liters Color of Fluid: Turbid, dark, yellowish pleural effusion. Fluid was/was not sent for appropriate laboratory tests. Patient tolerated the procedure well and there were no complications. No complications, no pneumothorax based on the follow up chest x-ray. MARK
== END 2016-09-18 15:21 | disposition home or self-care (01) | DRG 190 ==
LOC: EC 12:16 → 5MS5E 15:03
PROVIDERS: ADMIT Internal Medicine; ATTEND Internal Medicine
PROC: 0W993ZZ Drainage of Right Pleural Cavity, Percutaneous Approach (ICD-10-PCS; principal; 2016-09-18)
DX: J44.1 Chronic obstructive pulmonary disease with (acute) exacerbation (principal); J96.21 Acute and chronic respiratory failure with hypoxia; J91.0 Malignant pleural effusion; B37.0 Candidal stomatitis; C78.01 Secondary malignant neoplasm of right lung; C78.7 Secondary malignant neoplasm of liver and intrahepatic bile duct; C79.51 Secondary malignant neoplasm of bone; E66.01 Morbid (severe) obesity due to excess calories; E03.9 Hypothyroidism, unspecified; F17.200 Nicotine dependence, unspecified, uncomplicated; R73.03 Prediabetes; R68.81 Early satiety; Z17.0 Estrogen receptor positive status [ER+]; Z79.899 Other long term (current) drug therapy; Z88.1 Allergy status to other antibiotic agents; Z85.3 Personal history of malignant neoplasm of breast; Z80.3 Family history of malignant neoplasm of breast; Z82.49 Family history of ischemic heart disease and other diseases of the circulatory system
CPT/HCPCS: 36415; 70551; 71020; 71260; 80053; 82672; 83001; 83880; 85025; 93005; 94640

== ENCOUNTER 2016-09-30 12:20 | Day surgery (SDC) | payer OTHER ==
[2016-09-30 13:06] LABS: Mean Platelet Volume 7.9
[2016-09-30 13:21] VITALS: TEMP 98.1
[2016-09-30 13:26] LABS: INR 0.9 (<1.2); Prothrombin Time 9.7 sec (9.0-12.0)
[2016-09-30 13:34] LABS: ALT 47 U/L (9-52); AST 16 U/L (14-36); Alkaline Phosphatase 115 U/L (38-126); Anion Gap 7 mmol/L; Blood Urea Nitrogen 21 mg/dL (7-17); Calcium 9.1 mg/dL (8.4-10.2); Carbon Dioxide 31 mmol/L (22-30); Chloride 103 mmol/L (98-107); Glucose 123 mg/dL (74-99); Non-African American GFR(MDRD) >60 (>60 ml/min/1.73 sqM); Potassium 4.4 mmol/L (3.5-5.1); Sodium 141 mmol/L (137-145); Total Bilirubin 0.4 mg/dL (0.2-1.3); Total Protein 5.8 g/dL (6.3-8.2)
[2016-09-30 13:37] VITALS: RESP 18
[2016-09-30 14:05] VITALS: BP 121/56; PULSE 98
--- NOTE | 2016-09-30 14:17 | XR ---
EXAMINATION TYPE: XR chest 1V DATE OF EXAM: 09/30/2016 COMPARISON: Prior chest x-ray 09/18/2016 HISTORY: Status post left thoracentesis TECHNIQUE: Single frontal view of the chest is obtained. FINDINGS: Improvement in aeration noted in the left lung base. No evident pneumothorax. IMPRESSION: No evident complication status post thoracentesis.
--- NOTE | 2016-09-30 15:04 | US ---
EXAMINATION TYPE: US thoracentesis DATE OF EXAM: 09/30/2016 COMPARISON: NONE HISTORY: Pleural effusion. FINDINGS: Maximal barrier technique was utilized. The skin overlying a suitable pocket of fluid was localized and the overlying skin prepped and draped. Lidocaine was used for local anesthesia. Ultras ound was used with sterile technique. A 5 Icelandic catheter over guide needle was advanced into the pl eural fluid collection using ultrasound guidance and the catheter advanced, needle removed. Approxim ately 0.8 liter(s) of serous sanguinous fluid was removed. Catheter was withdrawn and hemostasis ach ieved. There is no immediate complication. The patient discharged in stable condition without compl ication. IMPRESSION: STATUS POST ULTRASOUND GUIDED THORACENTESIS, POST PROCEDURE CHEST X-RAY PENDING. THIS [place] OCEDURE WAS PERFORMED BY THE UNDERSIGNED.
== END 2016-09-30 14:44 | disposition home or self-care (01) ==
LOC: RADPROMAIN 12:20
PROVIDERS: ATTEND Internal Medicine Hematology & Oncology
DX: J90 Pleural effusion, not elsewhere classified (principal); C50.919 Malignant neoplasm of unspecified site of unspecified female breast; Z88.1 Allergy status to other antibiotic agents
CPT/HCPCS: 32555; 36415; 71010; 80053; 85049; 85610

== ENCOUNTER 2016-10-07 07:48 | Day surgery (SDC) | payer OTHER ==
[2016-10-07 08:23] LABS: Mean Platelet Volume 7.3
[2016-10-07 08:31] LABS: Prothrombin Time 10.6 sec (9.0-12.0)
[2016-10-07 09:07] VITALS: RESP 20
--- NOTE | 2016-10-07 09:56 | XR ---
EXAMINATION TYPE: XR chest 1V DATE OF EXAM: 10/07/2016 COMPARISON: Prior chest x-ray 09/30/2016 HISTORY: Status post right thoracentesis TECHNIQUE: Single frontal view of the chest is obtained. FINDINGS: Findings are similar to prior exam. There is persistent blunting of the costophrenic angle s. Basilar increased density is similar, there is retrocardiac density. No evident pneumothorax. Hear t size is stable. IMPRESSION: No evident complication status post thoracentesis.
--- NOTE | 2016-10-07 10:49 | US ---
EXAMINATION TYPE: US thoracentesis DATE OF EXAM: 10/07/2016 COMPARISON: NONE HISTORY: Pleural effusion. FINDINGS: Maximal barrier technique was utilized. The skin overlying a suitable pocket of fluid was localized and the overlying skin prepped and draped. Lidocaine was used for local anesthesia. Ultras ound was used with sterile technique. A 5 Uzbek catheter over guide needle was advanced into the pl eural fluid collection using ultrasound guidance and the catheter advanced, needle. Approximately 1. 25 liter(s) of serous fluid was removed. Catheter was withdrawn and hemostasis achieved. There is n o immediate complication. The patient discharged in stable condition without complication. IMPRESSION: STATUS POST ULTRASOUND GUIDED THORACENTESIS, POST PROCEDURE CHEST X-RAY PENDING. THIS [place] OCEDURE WAS PERFORMED BY THE UNDERSIGNED.
[2016-10-07 11:05] VITALS: BP 95/66; PULSE 101
== END 2016-10-07 10:15 | disposition home or self-care (01) ==
LOC: RADPROMAIN 07:48
PROVIDERS: ATTEND Internal Medicine Hematology & Oncology
DX: J90 Pleural effusion, not elsewhere classified (principal); C50.919 Malignant neoplasm of unspecified site of unspecified female breast
CPT/HCPCS: 32555; 36415; 71010; 85049; 85610

== ENCOUNTER → 2016-10-13 | Outpatient (CLI) | payer OTHER ==
[2016-10-13 17:35] LABS: Blood Urea Nitrogen 10 mg/dL (7-17); Non-African American GFR(MDRD) >60 (>60 ml/min/1.73 sqM)
--- NOTE | 2016-10-13 18:51 | CT ---
EXAMINATION TYPE: CT angio chest DATE OF EXAM: 10/13/2016 6:24 PM COMPARISON: NONE HISTORY: SOB CT DLP: 710 mGycm Automated exposure control for dose reduction was used. CONTRAST: CTA scan of the thorax is performed with IV Contrast, patient injected with 90 mL of Omnipaque 350, p ulmonary embolism protocol. There are 3-D post processed images.. FINDINGS: There are moderate bilateral pleural effusions. There is moderate bilateral patchy pulmonary atelecta sis. I see no filling defects in the pulmonary arteries. There is no mediastinal adenopathy. Thoracic aorta is intact. There is no sign of aneurysm or dissection. I see no mediastinal adenopathy. IMPRESSION: NO EVIDENCE OF PULMONARY EMBOLISM. BILATERAL PLEURAL EFFUSIONS AND PULMONARY ATELECTASIS. PLEURAL FLU ID IS PROBABLY DECREASED SLIGHTLY COMPARED TO 09/17/2016 CT SCAN. THERE IS NEW AIRSPACE PATCHY CONSOLI DATION AT THE LUNG APICES COMPARED TO OLD EXAM.
== END | disposition home or self-care (01) ==
LOC: RADCTMAIN 14:46
PROVIDERS: ATTEND Internal Medicine Hematology & Oncology
DX: J90 Pleural effusion, not elsewhere classified (principal); J98.11 Atelectasis; R91.8 Other nonspecific abnormal finding of lung field
CPT/HCPCS: 82565; 84520; 71275; Q9967

== ENCOUNTER 2016-10-14 08:50 | Day surgery (SDC) | payer OTHER ==
[2016-10-14 09:49] VITALS: TEMP 98.3
[2016-10-14 09:55] LABS: Partial Thromboplastin Time 25.2 sec (22.0-30.0); Prothrombin Time 10.4 sec (9.0-12.0)
--- NOTE | 2016-10-14 11:16 | XR ---
EXAMINATION TYPE: XR chest 1V DATE OF EXAM: 10/14/2016 COMPARISON: Prior chest x-ray 10/07/2016 HISTORY: Status post left thoracentesis TECHNIQUE: Single frontal view of the chest is obtained. FINDINGS: There is improved aeration in the left hemithorax. No evident pneumothorax. IMPRESSION: No evident complication status post thoracentesis.
[2016-10-14 11:29] VITALS: RESP 20
[2016-10-14 11:31] VITALS: BP 137/77; PULSE 110
--- NOTE | 2016-10-14 11:50 | US ---
EXAMINATION TYPE: US thoracentesis DATE OF EXAM: 10/14/2016 COMPARISON: NONE HISTORY: Pleural effusion. FINDINGS: Maximal barrier technique was utilized. The skin overlying a suitable pocket of fluid was localized and the overlying skin prepped and draped. Lidocaine was used for local anesthesia. Ultras ound was used with sterile technique. A 5 Spanish catheter over needle needle was advanced into the p leural fluid collection using ultrasound guidance and the catheter advanced, needle removed. Approxi mately 0.9 liter(s) of serous sanguinous fluid was removed. Catheter was withdrawn and hemostasis ac hieved. There is no immediate complication. The patient discharged in stable condition without comp lication. IMPRESSION: STATUS POST ULTRASOUND GUIDED THORACENTESIS, POST PROCEDURE CHEST X-RAY PENDING. THIS [place] OCEDURE WAS PERFORMED BY THE UNDERSIGNED.
== END 2016-10-14 11:45 | disposition home or self-care (01) ==
LOC: RADPROMAIN 08:50
PROVIDERS: ATTEND Internal Medicine Hematology & Oncology
DX: J90 Pleural effusion, not elsewhere classified (principal); C50.919 Malignant neoplasm of unspecified site of unspecified female breast; Z88.1 Allergy status to other antibiotic agents
CPT/HCPCS: 32555; 36415; 71010; 85610; 85730

== ENCOUNTER 2016-10-28 08:55 | Day surgery (SDC) | payer OTHER ==
[2016-10-28 09:32] LABS: Prothrombin Time 10.3 sec (9.0-12.0)
[2016-10-28 09:33] VITALS: RESP 14; TEMP 97.9
[2016-10-28 10:31] VITALS: BP 127/79; PULSE 86
--- NOTE | 2016-10-28 10:46 | XR ---
EXAMINATION TYPE: XR chest 1V portable DATE OF EXAM: 10/28/2016 COMPARISON: 10/16/2016 HISTORY: Postthoracentesis TECHNIQUE: Single frontal view of the chest is obtained. FINDINGS: No sizable pneumothorax there is some consolidation the left lung base. Moderate-sized rig ht pleural effusion and consolidation. Biapical pleural thickening. 1 cm nodule left lung apex. IMPRESSION: 1. No sizable pneumothorax post thoracentesis. 2. 1 cm apical lung nodule. 3. Moderate sized right pleural effusion.
--- NOTE | 2016-10-28 10:54 | US ---
Ultrasound-guided therapeutic and diagnostic thoracentesis DATE OF EXAM: 10/28/2016 CLINICAL HISTORY: Left pleural effusion The procedure was discussed with the patient. The risks, complications, benefits, and alternatives we re discussed and any questions were answered. Informed consent was obtained. The patient was placed supine on the ultrasound table and prepped and draped in the usual sterile fas hion. All elements of maximal barrier and sterile technique were utilized. Under ultrasound guidance, access into the pleural space was obtained, via the thoracentesis catheter system and direct ultrasound guidance. Ap proximately 0.75 liters of serous fluid was removed. The patient was stable throughout the procedure and remained stable upon discharge from Department of Radiology. IMPRESSION: 1. Successful therapeutic and diagnostic thoracentesis under ultrasound guidance.
== END 2016-10-28 10:55 | disposition home or self-care (01) ==
LOC: RADPROMAIN 08:55
PROVIDERS: ATTEND Internal Medicine Hematology & Oncology
DX: J90 Pleural effusion, not elsewhere classified (principal)
CPT/HCPCS: 32555; 71010; 85049; 85610

== ENCOUNTER 2016-10-30 10:58 | Day surgery (SDC) | payer OTHER ==
[2016-10-30 11:22] VITALS: RESP 14; TEMP 97.8
[2016-10-30 11:53] VITALS: BP 118/70; PULSE 94
--- NOTE | 2016-10-30 12:06 | XR ---
EXAMINATION TYPE: XR chest 1V portable DATE OF EXAM: 10/30/2016 COMPARISON: NONE HISTORY: Shortness of breath. Right thoracentesis. TECHNIQUE: Single frontal view of the chest is obtained. FINDINGS: Small layering right pleural effusion appears similar to the prior and there is interval d evelopment of a small layering left pleural effusion. Bibasilar airspace disease likely relates to at electasis. Mild degenerative changes are seen of the thoracic spine. Cardiac silhouette is unchanged and within normal limits. No discrete evidence of pulmonary vascular congestion. IMPRESSION: Small right pleural effusion, similar to the prior and new left small pleural effusion w ith associated bibasilar airspace disease, likely compressive atelectasis.
--- NOTE | 2016-10-30 12:08 | US ---
Ultrasound-guided therapeutic and diagnostic thoracentesis DATE OF EXAM: 10/30/2016 CLINICAL HISTORY: Right pleural effusion The procedure was discussed with the patient. The risks, complications, benefits, and alternatives we re discussed and any questions were answered. Informed consent was obtained. The patient was placed supine on the ultrasound table and prepped and draped in the usual sterile fas hion. All elements of maximal barrier and sterile technique were utilized. Under ultrasound guidance, access into the pleural space was obtained, via the thoracentesis catheter system and direct ultrasound guidance. Ap proximately 1.2 liters of straw-colored fluid was removed. The patient was stable throughout the procedure and remained stable upon discharge from Department of Radiology. IMPRESSION: 1. Successful therapeutic and diagnostic thoracentesis under ultrasound guidance.
== END 2016-10-30 12:15 | disposition home or self-care (01) ==
LOC: RADPROMAIN 10:58
PROVIDERS: ATTEND Internal Medicine Hematology & Oncology
DX: J90 Pleural effusion, not elsewhere classified (principal); C50.919 Malignant neoplasm of unspecified site of unspecified female breast; Z88.1 Allergy status to other antibiotic agents
CPT/HCPCS: 32555; 71010

== ENCOUNTER 2016-11-11 10:55 | Day surgery (SDC) | payer OTHER ==
[2016-11-11 11:25] LABS: Mean Platelet Volume 8.6
[2016-11-11 14:12] VITALS: BP 120/74; PULSE 101; RESP 18; TEMP 98.1
--- NOTE | 2016-11-11 14:39 | US ---
EXAMINATION TYPE: US thoracentesis DATE OF EXAM: 11/11/2016 COMPARISON: NONE HISTORY: Pleural effusion. FINDINGS: Maximal barrier technique was utilized. The skin overlying a suitable pocket of fluid was localized and the overlying skin prepped and draped. Lidocaine was used for local anesthesia. Ultras ound was used with sterile technique. A 5 Nepali catheter over guide needle was advanced into the pl eural fluid collection using ultrasound guidance and the catheter advanced, needle removed. Approxim ately 0.75 liter(s) of serous fluid was removed. Catheter was withdrawn and hemostasis achieved. Th ere is no immediate complication. The patient discharged in stable condition without complication. IMPRESSION: STATUS POST ULTRASOUND GUIDED THORACENTESIS, POST PROCEDURE CHEST X-RAY PENDING. THIS [place] OCEDURE WAS PERFORMED BY THE UNDERSIGNED.
--- NOTE | 2016-11-11 14:53 | XR ---
EXAMINATION TYPE: XR chest 1V DATE OF EXAM: 11/11/2016 COMPARISON: Prior chest x-ray 10/30/2016 HISTORY: Status post thoracentesis on the left TECHNIQUE: Single frontal view of the chest is obtained. FINDINGS: There is no evident pneumothorax. Right-sided pleural effusion is again seen. Essentially no interval change. IMPRESSION: No evident complication status post thoracentesis.
== END 2016-11-11 13:30 | disposition home or self-care (01) ==
LOC: RADPROMAIN 10:55
PROVIDERS: ATTEND Internal Medicine Hematology & Oncology
DX: J90 Pleural effusion, not elsewhere classified (principal); C50.919 Malignant neoplasm of unspecified site of unspecified female breast
CPT/HCPCS: 32555; 36415; 71010; 85049; 85610

== ENCOUNTER 2016-11-13 09:52 | Day surgery (SDC) | payer OTHER ==
[2016-11-13 10:13] VITALS: RESP 20; TEMP 97.5
--- NOTE | 2016-11-13 11:27 | XR ---
EXAMINATION TYPE: XR chest 1V portable DATE OF EXAM: 11/13/2016 COMPARISON: NONE HISTORY: Right-sided thoracentesis TECHNIQUE: Single frontal view of the chest is obtained. FINDINGS: No pneumothorax post procedure. Small right pleural effusion and consolidation persist. So ft tissue artifact overlying the lateral chest bilaterally. Arthropathy of the shoulders. IMPRESSION: 1. No pneumothorax post procedure.
--- NOTE | 2016-11-13 11:31 | US ---
Ultrasound-guided therapeutic and diagnostic thoracentesis DATE OF EXAM: 11/13/2016 CLINICAL HISTORY: Right pleural effusion The procedure was discussed with the patient. The risks, complications, benefits, and alternatives we re discussed and any questions were answered. Informed consent was obtained. The patient was placed supine on the ultrasound table and prepped and draped in the usual sterile fas hion. All elements of maximal barrier and sterile technique were utilized. Under ultrasound guidance, access into the pleural space was obtained, via the thoracentesis catheter system and direct ultrasound guidance.Юлия roximately 900 liters of straw-colored fluid was removed. The patient was stable throughout the procedure and remained stable upon discharge from Department of Radiology. IMPRESSION: 1. Successful therapeutic and diagnostic thoracentesis under ultrasound guidance.
[2016-11-13 11:54] VITALS: BP 106/77; PULSE 80
== END 2016-11-13 11:30 | disposition home or self-care (01) ==
LOC: RADPROMAIN 09:52
PROVIDERS: ATTEND Internal Medicine Hematology & Oncology
DX: J90 Pleural effusion, not elsewhere classified (principal); C50.919 Malignant neoplasm of unspecified site of unspecified female breast
CPT/HCPCS: 32555; 71010

== ENCOUNTER 2016-11-24 10:48 | Day surgery (SDC) | payer OTHER ==
[2016-11-24 11:20] VITALS: RESP 20; TEMP 98.6
[2016-11-24 11:22] LABS: Mean Platelet Volume 8.8
[2016-11-24 11:30] LABS: Prothrombin Time 9.9 sec (9.0-12.0)
--- NOTE | 2016-11-24 12:43 | XR ---
EXAMINATION TYPE: XR chest 1V portable DATE OF EXAM: 11/24/2016 COMPARISON: 11/13/2016 HISTORY: Left-sided thoracentesis TECHNIQUE: Single frontal view of the chest is obtained. FINDINGS: No sizable pleural effusion on the left. No pneumothorax post procedure. Stable right-sided pleural effusion. Apical bilateral pleural thickening seen. Heart size stable. Hyp ertrophic change of the spine. IMPRESSION: 1. No pneumothorax post thoracentesis.
--- NOTE | 2016-11-24 12:44 | US ---
Ultrasound-guided therapeutic thoracentesis DATE OF EXAM: 11/24/2016 CLINICAL HISTORY: Left pleural effusion The procedure was discussed with the patient. The risks, complications, benefits, and alternatives we re discussed and any questions were answered. Informed consent was obtained. The patient was placed supine on the ultrasound table and prepped and draped in the usual sterile fas hion. All elements of maximal barrier and sterile technique were utilized. Under ultrasound guidance, access into the pleural space was obtained, via the thoracentesis catheter system and direct ultrasound guidance. Ap proximately 0.7 liters of straw-colored fluid was removed. The patient was stable throughout the procedure and remained stable upon discharge from Department of Radiology. IMPRESSION: 1. Successful therapeutic thoracentesis under ultrasound guidance.
[2016-11-24 13:30] VITALS: BP 108/70; PULSE 69
== END 2016-11-24 12:50 | disposition home or self-care (01) ==
LOC: RADPROMAIN 10:48
PROVIDERS: ATTEND Internal Medicine Hematology & Oncology
DX: J91.8 Pleural effusion in other conditions classified elsewhere (principal); C50.919 Malignant neoplasm of unspecified site of unspecified female breast; Z88.1 Allergy status to other antibiotic agents
CPT/HCPCS: 32555; 36415; 71010; 85049; 85610

== ENCOUNTER 2016-11-27 09:51 | Day surgery (SDC) | payer OTHER ==
[2016-11-27 10:48] VITALS: TEMP 97.6
--- NOTE | 2016-11-27 11:33 | XR ---
EXAMINATION TYPE: XR chest 1V portable DATE OF EXAM: 11/27/2016 COMPARISON: 11/24/2016 HISTORY: Right thoracentesis TECHNIQUE: Single frontal view of the chest is obtained. FINDINGS: Right-sided airspace disease remains has developed which could relate to atelectasis and/o r residual loculated effusion. There is blunting of the right costophrenic angle related to small res idual effusion. No pneumothorax. Left lung is partially obscured by overlying soft tissues, however n o pneumothorax or focal consolidation is seen. Cardia mediastinal silhouette is within normal limits. IMPRESSION: 1. No postprocedural pneumothorax. 2. Right-sided airspace disease may relate to multifocal atelectasis and/or residual loculated pleura l effusion. Short-term follow-up chest radiograph is recommended to ensure resolution.
[2016-11-27 11:43] VITALS: BP 111/69; PULSE 80; RESP 16
--- NOTE | 2016-11-27 13:45 | US ---
Ultrasound-guided therapeutic and diagnostic thoracentesis DATE OF EXAM: 11/27/2016 CLINICAL HISTORY: Right pleural effusion The procedure was discussed with the patient. The risks, complications, benefits, and alternatives we re discussed and any questions were answered. Informed consent was obtained. The patient was placed supine on the ultrasound table and prepped and draped in the usual sterile fas hion. All elements of maximal barrier and sterile technique were utilized. Under ultrasound guidance, access into the pleural space was obtained, via the thoracentesis catheter system and direct ultrasound guidance.Юлия roximately 0.8 liters of straw-colored fluid was removed. The patient was stable throughout the procedure and remained stable upon discharge from Department of Radiology. IMPRESSION: 1. Successful therapeutic and diagnostic thoracentesis under ultrasound guidance.
== END 2016-11-27 11:45 | disposition home or self-care (01) ==
LOC: RADPROMAIN 09:51
PROVIDERS: ATTEND Internal Medicine Hematology & Oncology
DX: J90 Pleural effusion, not elsewhere classified (principal); C50.919 Malignant neoplasm of unspecified site of unspecified female breast
CPT/HCPCS: 32555; 71010

== ENCOUNTER 2016-12-09 11:54 | Day surgery (SDC) | payer OTHER ==
[2016-12-09 12:57] LABS: Mean Platelet Volume 7.6
[2016-12-09 13:01] LABS: Prothrombin Time 10.3 sec (9.0-12.0)
[2016-12-09 14:01] VITALS: RESP 18
[2016-12-09 14:05] VITALS: TEMP 98
--- NOTE | 2016-12-09 14:11 | US ---
EXAMINATION TYPE: US thoracentesis DATE OF EXAM: 12/09/2016 COMPARISON: NONE HISTORY: Pleural effusion. FINDINGS: Maximal barrier technique was utilized. The skin overlying a suitable pocket of fluid was localized and the overlying skin prepped and draped. Lidocaine was used for local anesthesia. Ultras ound was used with sterile technique. A 5 F catheter over guide needle was advanced into the pleural fluid collection using ultrasound guidance and the needle removed, catheter advanced. Approximately 0.65 liter(s) of serous fluid was removed. Catheter was withdrawn and hemostasis achieved. There i s no immediate complication. The patient discharged in stable condition without complication. IMPRESSION: STATUS POST ULTRASOUND GUIDED THORACENTESIS, POST PROCEDURE CHEST X-RAY PENDING. THIS [place] OCEDURE WAS PERFORMED BY THE UNDERSIGNED.
[2016-12-09 14:59] VITALS: BP 140/76; PULSE 79
--- NOTE | 2016-12-10 12:11 | XR ---
EXAMINATION TYPE: XR chest 1V DATE OF EXAM: 12/09/2016 COMPARISON: Prior chest x-ray 11/27/2016 HISTORY: Status post left thoracentesis TECHNIQUE: Single frontal view of the chest is obtained. FINDINGS: Minimal blunting of the right costophrenic angle. Breast prostheses are present. No eviden t pneumothorax. Heart size is stable. IMPRESSION: No evident complication status post thoracentesis.
== END 2016-12-09 14:30 | disposition home or self-care (01) ==
LOC: RADPROMAIN 11:54
PROVIDERS: ATTEND Internal Medicine Hematology & Oncology
DX: C50.919 Malignant neoplasm of unspecified site of unspecified female breast (principal); J91.8 Pleural effusion in other conditions classified elsewhere; Z88.1 Allergy status to other antibiotic agents
CPT/HCPCS: 32555; 36415; 71010; 85049; 85610

== ENCOUNTER 2016-12-11 08:51 | Day surgery (SDC) | payer OTHER ==
[2016-12-11 10:33] VITALS: TEMP 97.7
--- NOTE | 2016-12-11 11:27 | XR ---
EXAMINATION TYPE: XR chest 1V portable DATE OF EXAM: 12/11/2016 COMPARISON: Prior chest x-ray 12/09/2016 HISTORY: Status post right thoracentesis TECHNIQUE: Single frontal view of the chest is obtained. FINDINGS: There is no pneumothorax. Some improvement in the costophrenic angle blunting on the right . No other interval change. IMPRESSION: No evident complication status post right thoracentesis.
[2016-12-11 11:47] VITALS: BP 109/69; PULSE 72; RESP 16
--- NOTE | 2016-12-11 12:40 | US ---
EXAMINATION TYPE: US thoracentesis DATE OF EXAM: 12/11/2016 COMPARISON: NONE HISTORY: Pleural effusion. FINDINGS: Maximal barrier technique was utilized. The skin overlying a suitable pocket of fluid was localized and the overlying skin prepped and draped. Lidocaine was used for local anesthesia. Ultras ound was used with sterile technique. A 5 Spanish catheter over guide needle was advanced into the pl eural fluid collection using ultrasound guidance and the catheter advanced, needle removed. Approxim ately 0.75 liter(s) of serous fluid was removed. Catheter was withdrawn and hemostasis achieved. Th ere is no immediate complication. The patient discharged in stable condition without complication. IMPRESSION: STATUS POST ULTRASOUND GUIDED THORACENTESIS, POST PROCEDURE CHEST X-RAY PENDING. THIS [place] OCEDURE WAS PERFORMED BY THE UNDERSIGNED.
== END 2016-12-11 11:30 | disposition home or self-care (01) ==
LOC: RADPROMAIN 08:51
PROVIDERS: ATTEND Internal Medicine Hematology & Oncology
DX: C50.919 Malignant neoplasm of unspecified site of unspecified female breast (principal); J91.8 Pleural effusion in other conditions classified elsewhere; Z88.1 Allergy status to other antibiotic agents
CPT/HCPCS: 32555; 36415; 71010

== ENCOUNTER 2016-12-23 08:49 | Day surgery (SDC) | payer OTHER ==
[2016-12-23 09:21] LABS: Mean Platelet Volume 8.7
[2016-12-23 09:35] LABS: Prothrombin Time 9.9 sec (9.0-12.0)
[2016-12-23 09:56] VITALS: TEMP 95.4
[2016-12-23 10:21] VITALS: RESP 16
[2016-12-23 10:47] VITALS: BP 134/72; PULSE 94
--- NOTE | 2016-12-23 11:01 | XR ---
EXAMINATION TYPE: XR chest 1V portable DATE OF EXAM: 12/23/2016 COMPARISON: Prior chest 12/11/2016 HISTORY: Status post left thoracentesis TECHNIQUE: Single frontal view of the chest is obtained. FINDINGS: No pneumothorax. No significant interval change. IMPRESSION: No evident complication status post left-sided thoracentesis.
--- NOTE | 2016-12-23 14:29 | US ---
EXAMINATION TYPE: US thoracentesis DATE OF EXAM: 12/23/2016 COMPARISON: NONE HISTORY: Pleural effusion. FINDINGS: Maximal barrier technique was utilized. The skin overlying a suitable pocket of fluid was localized and the overlying skin prepped and draped. Lidocaine was used for local anesthesia. Ultras ound was used with sterile technique. A 5 Armenian catheter over guide needle was advanced into the pl eural fluid collection using ultrasound guidance and the catheter advanced, needle removed. Approxim ately 0.725 liter(s) of serous fluid was removed. Catheter was withdrawn and hemostasis achieved. T here is no immediate complication. The patient discharged in stable condition without complication. IMPRESSION: STATUS POST ULTRASOUND GUIDED THORACENTESIS, POST PROCEDURE CHEST X-RAY PENDING. THIS [place] OCEDURE WAS PERFORMED BY THE UNDERSIGNED.
== END 2016-12-23 11:20 | disposition hospice, home (50) ==
LOC: RADPROMAIN 08:49
PROVIDERS: ATTEND Internal Medicine Hematology & Oncology
DX: J90 Pleural effusion, not elsewhere classified (principal)
CPT/HCPCS: 32555; 36415; 71010; 85049; 85610

== ENCOUNTER 2017-01-20 12:28 | Day surgery (SDC) | payer OTHER ==
[2017-01-20 13:22] LABS: Mean Platelet Volume 8.3
[2017-01-20 13:29] LABS: Partial Thromboplastin Time 26.4 sec (22.0-30.0); Prothrombin Time 10.2 sec (9.0-12.0)
[2017-01-20 13:42] VITALS: RESP 18
--- NOTE | 2017-01-20 14:35 | XR ---
EXAMINATION TYPE: XR chest 1V DATE OF EXAM: 01/20/2017 COMPARISON: Prior chest x-ray 12/30/2016 HISTORY: Status post left thoracentesis TECHNIQUE: Single frontal view of the chest is obtained. FINDINGS: There is no significant interval change. IMPRESSION: No evident complication status post thoracentesis
[2017-01-20 15:04] VITALS: BP 109/70; PULSE 80
--- NOTE | 2017-01-20 15:29 | US ---
EXAMINATION TYPE: US thoracentesis DATE OF EXAM: 01/20/2017 COMPARISON: NONE HISTORY: Pleural effusion. FINDINGS: Maximal barrier technique was utilized. The skin overlying a suitable pocket of fluid was localized and the overlying skin prepped and draped. Lidocaine was used for local anesthesia. Ultras ound was used with sterile technique. A 5 Kiswahili catheter over guide needle was advanced into the pl eural fluid collection using ultrasound guidance and the needle removed, catheter advanced. Approxim ately 0.8 liter(s) of serous fluid was removed. Catheter was withdrawn and hemostasis achieved. The re is no immediate complication. The patient discharged in stable condition without complication. IMPRESSION: STATUS POST ULTRASOUND GUIDED THORACENTESIS, POST PROCEDURE CHEST X-RAY PENDING. THIS [place] OCEDURE WAS PERFORMED BY THE UNDERSIGNED.
== END 2017-01-20 14:45 | disposition home or self-care (01) ==
LOC: RADPROMAIN 12:28
PROVIDERS: ATTEND Internal Medicine Hematology & Oncology
DX: C50.919 Malignant neoplasm of unspecified site of unspecified female breast (principal); J91.8 Pleural effusion in other conditions classified elsewhere; Z88.1 Allergy status to other antibiotic agents
CPT/HCPCS: 32555; 36415; 71010; 85049; 85610; 85730

== ENCOUNTER 2017-02-25 11:54 | Day surgery (SDC) | payer OTHER ==
[2017-02-25 12:26] LABS: Mean Platelet Volume 7.7
[2017-02-25 12:38] LABS: Partial Thromboplastin Time 23.7 sec (22.0-30.0); Prothrombin Time 9.8 sec (9.0-12.0)
[2017-02-25 12:49] VITALS: RESP 14; TEMP 97.7
[2017-02-25 13:35] VITALS: BP 131/79; PULSE 72
--- NOTE | 2017-02-25 14:03 | XR ---
EXAMINATION TYPE: XR chest 1V DATE OF EXAM: 02/25/2017 COMPARISON: Prior chest x-ray 01/29/2017 HISTORY: Status post right thoracentesis TECHNIQUE: Single frontal view of the chest is obtained. FINDINGS: There is no evident pneumothorax. Residual effusions are present bilaterally. Heart size i s stable. IMPRESSION: No evident complication status post thoracentesis.
--- NOTE | 2017-02-25 14:06 | US ---
EXAMINATION TYPE: US thoracentesis DATE OF EXAM: 02/25/2017 COMPARISON: NONE HISTORY: Pleural effusion. FINDINGS: Maximal barrier technique was utilized. The skin overlying a suitable pocket of fluid was localized and the overlying skin prepped and draped. Lidocaine was used for local anesthesia. Ultras ound was used with sterile technique. A 5 Yoruba catheter over guide needle was advanced into the pl eural fluid collection using ultrasound guidance the catheter advanced, needle removed. Approximatel y 0.48 liter(s) of Mohini fluid was removed. Catheter was withdrawn and hemostasis achieved. There i s no immediate complication. The patient discharged in stable condition without complication. IMPRESSION: STATUS POST ULTRASOUND GUIDED THORACENTESIS, POST PROCEDURE CHEST X-RAY PENDING. THIS CT OCEDURE WAS PERFORMED BY THE UNDERSIGNED.
== END 2017-02-25 14:25 | disposition home or self-care (01) ==
LOC: RADPROMAIN 11:54
PROVIDERS: ATTEND Internal Medicine Hematology & Oncology
DX: J90 Pleural effusion, not elsewhere classified (principal); C50.919 Malignant neoplasm of unspecified site of unspecified female breast
CPT/HCPCS: 32555; 71010; 85049; 85610; 85730

== ENCOUNTER 2017-03-11 13:02 | Day surgery (SDC) | payer OTHER ==
[2017-03-11 13:26] VITALS: RESP 20; TEMP 98.3
[2017-03-11 13:29] LABS: Mean Platelet Volume 8.2; Platelet Count 213 k/uL (150-450)
[2017-03-11 13:33] LABS: Prothrombin Time 9.9 sec (9.0-12.0)
--- NOTE | 2017-03-11 14:56 | XR ---
EXAMINATION TYPE: XR chest 1V DATE OF EXAM: 03/11/2017 COMPARISON: Prior chest x-ray 02/25/2017 HISTORY: Status post left thoracentesis TECHNIQUE: Single frontal view of the chest is obtained. FINDINGS: There is some improvement in aeration at the left lung base. No evident pneumothorax. IMPRESSION: No evident complication status post thoracentesis.
[2017-03-11 15:11] VITALS: BP 142/70; PULSE 97
--- NOTE | 2017-03-11 16:49 | US ---
EXAMINATION TYPE: US thoracentesis DATE OF EXAM: 03/11/2017 COMPARISON: NONE HISTORY: Pleural effusion. FINDINGS: Maximal barrier technique was utilized. The skin overlying a suitable pocket of fluid was localized and the overlying skin prepped and draped. Lidocaine was used for local anesthesia. Ultras ound was used with sterile technique. A 5 Mongolian catheter over guide needle was advanced into the pl eural fluid collection using ultrasound guidance and the catheter advanced, needle removed. Approxim ately 0.8 liter(s) of serous fluid was removed. Catheter was withdrawn and hemostasis achieved. The re is no immediate complication. The patient discharged in stable condition without complication. IMPRESSION: STATUS POST ULTRASOUND GUIDED THORACENTESIS, POST PROCEDURE CHEST X-RAY PENDING. THIS [place] OCEDURE WAS PERFORMED BY THE UNDERSIGNED.
== END 2017-03-11 15:05 | disposition home or self-care (01) ==
LOC: RADPROMAIN 13:02
PROVIDERS: ATTEND Internal Medicine Hematology & Oncology
DX: C50.919 Malignant neoplasm of unspecified site of unspecified female breast (principal); J91.8 Pleural effusion in other conditions classified elsewhere; Z88.1 Allergy status to other antibiotic agents
CPT/HCPCS: 32555; 36415; 71045; 85049; 85610

== ENCOUNTER 2017-03-30 08:54 | Day surgery (SDC) | payer OTHER ==
[2017-03-30 09:26] LABS: Mean Platelet Volume 7.4; Platelet Count 317 k/uL (150-450)
[2017-03-30 09:31] LABS: Prothrombin Time 9.8 sec (9.0-12.0)
[2017-03-30 10:00] VITALS: RESP 18; TEMP 98.1
--- NOTE | 2017-03-30 10:45 | XR ---
EXAMINATION TYPE: XR chest 1V DATE OF EXAM: 03/30/2017 COMPARISON: Prior chest x-ray 03/11/2017 HISTORY: Status post thoracentesis TECHNIQUE: Single frontal view of the chest is obtained. FINDINGS: There is no evident pneumothorax. Findings are similar to prior exam. IMPRESSION: No evident complication status post left thoracentesis.
[2017-03-30 11:11] VITALS: BP 121/72; PULSE 86
--- NOTE | 2017-03-30 19:36 | US ---
EXAMINATION TYPE: US thoracentesis DATE OF EXAM: 03/30/2017 COMPARISON: NONE HISTORY: Bilateral Pleural effusion. FINDINGS: Maximal barrier technique was utilized. The skin overlying a suitable pocket of fluid was localized and the overlying skin prepped and draped on the left, right chest is noted to have organiz ed collection. Lidocaine was used for local anesthesia. Ultrasound was used with sterile technique. A 5 Malay catheter over guide needle was advanced into the pleural fluid collection using ultrasoun d guidance and the catheter advanced, needle removed. Approximately 0.5 liter(s) of serous fluid was removed. Catheter was withdrawn and hemostasis achieved. There is no immediate complication. The patient discharged in stable condition without complication. IMPRESSION: STATUS POST ULTRASOUND GUIDED LEFT THORACENTESIS, POST PROCEDURE CHEST X-RAY PENDING. TH IS PROCEDURE WAS PERFORMED BY THE UNDERSIGNED. Right pleural effusion appears partially organized.
== END 2017-03-30 11:05 | disposition home or self-care (01) ==
LOC: RADPROMAIN 08:54
PROVIDERS: ATTEND Internal Medicine Hematology & Oncology
DX: C50.919 Malignant neoplasm of unspecified site of unspecified female breast (principal); J91.8 Pleural effusion in other conditions classified elsewhere; Z88.1 Allergy status to other antibiotic agents
CPT/HCPCS: 32555; 36415; 71045; 85049; 85610

== ENCOUNTER → 2017-04-06 | Outpatient (CLI) | payer OTHER ==
[2017-04-06 12:31] LABS: Blood Urea Nitrogen 15 mg/dL (7-17)
--- NOTE | 2017-04-06 15:14 | CT ---
EXAMINATION TYPE: CT ChestAbdPelvis w con DATE OF EXAM: 04/06/2017 COMPARISON: 12/30/2016 HISTORY: Follow up breast cancer CT DLP: 1491.9 mGycm CONTRAST: CT scan of the chest, abdomen and pelvis is performed with Oral Contrast and with IV Contrast, patien t injected with 100 mL of Omnipaque 300. CT Chest: LUNGS: Increasing bilateral pleural effusions measuring 4.5 cm on the right AP dimension and 6.1 cm o n the left AP dimension. There is tracking to the left lung apex on the left. Basilar compressive ate lectasis identified. No visible pulmonary mass identified with certainty at this time. MEDIASTINUM: Thoracic aorta is of normal caliber. The heart is not enlarged. No evidence for medi astinal mass or adenopathy. HILAR STRUCTURES: No evidence for mass. No hilar adenopathy is appreciated. OTHER: Bilateral breast implants are in place. Previously noted enlarged right axillary lymph node hooker s either been removed or has resolved. No new axillary adenopathy present. CONTRAST CT ABDOMEN AND PELVIS FINDINGS: LIVER/GB: No calcified gallstones. Hepatic lesions are persistent although less conspicuous on the current study. No increase in hepatic lesion is seen. Evidence of cholelithiasis seen. Biliary tree i s of normal caliber. PANCREAS: No inflammation. No distinct mass. SPLEEN: No splenic enlargement. No lesion seen. ADRENALS: No nodule. No thickening. KIDNEYS/BLADDER: No hydronephrosis. No nephrolithiasis. No disctinct renal mass. BOWEL: Normal appendix. Normal bowel caliber. No inflammation. GENITAL ORGANS: No gross abnormality. LYMPH NODES: No greater than 1cm abdominal or pelvic lymph nodes are appreciated. AORTA: No significant abnormality. OSSEOUS STRUCTURES: Bony metastases again noted essentially unchanged from prior study. OTHER: No si gnificant additional abnormality is seen. IMPRESSION: 1. Increasing pleural effusions with basilar atelectasis. No distinct pulmonary nodules seen. 2. Persistent blastic metastases. 3. Persistent metastatic lesions to the liver.
== END | disposition home or self-care (01) ==
LOC: RADCTMAIN 11:54
PROVIDERS: ATTEND Internal Medicine Hematology & Oncology
DX: C50.919 Malignant neoplasm of unspecified site of unspecified female breast (principal); C79.51 Secondary malignant neoplasm of bone; C78.7 Secondary malignant neoplasm of liver and intrahepatic bile duct; J90 Pleural effusion, not elsewhere classified; J98.11 Atelectasis
CPT/HCPCS: 82565; 84520; 71260; 74177; 36415; Q9967

== ENCOUNTER → 2017-04-16 | Outpatient (CLI) | payer OTHER ==
--- NOTE | 2017-04-16 22:32 | MR ---
MR thoracic spine with and without contrast HISTORY: Breast carcinoma, back pain Multiplanar multisequence and postcontrast images obtained through the thoracic spine following 7.5 c c Gadavist IV Correlation CT chest 04/06/2017 Abnormal increased T2 signal is present within the left greater than right pleural space which is lob ular compatible with pleural effusion left greater than right. Thoracic vertebral bodies show preserved height and alignment. There is extensive heterogeneous inter mediate to low signal on T1 and T2-weighted sequences within the visualized vertebral bodies with enh ancement on contrast administration compatible with diffuse metastatic disease within the vertebral b odies and ribs clavicles and sternum. There is no evident foraminal encroachment or significant spina l stenosis. Multilevel spondylosis is present. There is no sizable disc herniation. There is some posterior mass effect due to fluid signal present posterior to the thoracic cord at the level of approximately T5. Relative posterior impression is noted, there is a contour abnormality of the cord at this level although a mass is not identified with certainty. Thoracic cord signal is domitila ntained. IMPRESSION: Metastatic disease. Indeterminate fluid signal causing posterior mass effect on the thora cic cord at the T5 level. Bilateral pleural effusions.
== END | disposition home or self-care (01) ==
LOC: RADMRIMAIN 19:12
PROVIDERS: ATTEND Internal Medicine Hematology & Oncology
DX: C50.919 Malignant neoplasm of unspecified site of unspecified female breast (principal); C79.51 Secondary malignant neoplasm of bone
CPT/HCPCS: 72157; A9581

== ENCOUNTER 2017-05-06 08:55 | Day surgery (SDC) | payer OTHER ==
[2017-05-06 09:28] LABS: Mean Platelet Volume 8.8; Platelet Count 204 k/uL (150-450)
[2017-05-06 09:33] LABS: Partial Thromboplastin Time 26.9 sec (22.0-30.0); Prothrombin Time 9.9 sec (9.0-12.0)
[2017-05-06 09:51] VITALS: RESP 14; TEMP 97.6
[2017-05-06 10:15] VITALS: BP 136/85; PULSE 99
--- NOTE | 2017-05-06 10:39 | XR ---
EXAMINATION TYPE: XR chest 1V DATE OF EXAM: 05/06/2017 COMPARISON: Prior chest x-ray dated 03/30/2017 HISTORY: Status post left thoracentesis TECHNIQUE: Single frontal view of the chest is obtained. FINDINGS: No significant change. No evident pneumothorax. IMPRESSION: No evident complication status post left thoracentesis.
--- NOTE | 2017-05-06 11:37 | US ---
EXAMINATION TYPE: US thoracentesis DATE OF EXAM: 05/06/2017 COMPARISON: NONE HISTORY: Pleural effusion. FINDINGS: Maximal barrier technique was utilized. The skin overlying a suitable pocket of fluid was localized and the overlying skin prepped and draped. Lidocaine was used for local anesthesia. Ultras ound was used with sterile technique. A 5 Upper Sorbian catheter over guide needle was advanced into the pl eural fluid collection using ultrasound guidance and the catheter advanced, needle removed. Approxim ately 0.76 liter(s) of serous fluid was removed. Catheter was withdrawn and hemostasis achieved. Th ere is no immediate complication. The patient discharged in stable condition without complication. IMPRESSION: STATUS POST ULTRASOUND GUIDED THORACENTESIS, POST PROCEDURE CHEST X-RAY PENDING. THIS [place] OCEDURE WAS PERFORMED BY THE UNDERSIGNED.
== END 2017-05-06 10:32 | disposition home or self-care (01) ==
LOC: RADPROMAIN 08:55
PROVIDERS: ATTEND Internal Medicine Hematology & Oncology
DX: J91.8 Pleural effusion in other conditions classified elsewhere (principal); C50.919 Malignant neoplasm of unspecified site of unspecified female breast
CPT/HCPCS: 32555; 71045; 85049; 85610; 85730

== ENCOUNTER 2017-06-16 08:57 | Day surgery (SDC) | payer OTHER ==
[2017-06-16 09:34] LABS: Mean Platelet Volume 8.8; Platelet Count 227 k/uL (150-450)
[2017-06-16 09:36] VITALS: RESP 16; TEMP 97.9
[2017-06-16 09:44] LABS: Partial Thromboplastin Time 24.8 sec (22.0-30.0); Prothrombin Time 9.5 sec (9.0-12.0)
[2017-06-16 10:32] VITALS: BP 130/77; PULSE 88
--- NOTE | 2017-06-16 10:56 | XR ---
EXAMINATION TYPE: XR chest 1V DATE OF EXAM: 06/16/2017 COMPARISON: Prior chest x-ray 05/06/2017 HISTORY: Status post left thoracentesis TECHNIQUE: Single frontal view of the chest is obtained. FINDINGS: There is no significant interval change. IMPRESSION: No evident complication status post left thoracentesis.
--- NOTE | 2017-06-16 12:27 | US ---
EXAMINATION TYPE: US thoracentesis DATE OF EXAM: 06/16/2017 COMPARISON: NONE HISTORY: Pleural effusion. FINDINGS: Maximal barrier technique was utilized. The skin overlying a suitable pocket of fluid was localized and the overlying skin prepped and draped. Lidocaine was used for local anesthesia. Ultras ound was used with sterile technique. A 5 Irish catheter over guide needle was advanced into the pl eural fluid collection using ultrasound guidance and the needle removed after catheter advanced. Юлия roximately 0.8 liter(s) of serous fluid was removed. Catheter was withdrawn and hemostasis achieved. There is no immediate complication. The patient discharged in stable condition without complicatio n. IMPRESSION: STATUS POST ULTRASOUND GUIDED THORACENTESIS, POST PROCEDURE CHEST X-RAY PENDING. THIS [place] OCEDURE WAS PERFORMED BY THE UNDERSIGNED.
== END 2017-06-16 11:00 | disposition home or self-care (01) ==
LOC: RADPROMAIN 08:57
PROVIDERS: ATTEND Internal Medicine Hematology & Oncology
DX: J90 Pleural effusion, not elsewhere classified (principal); C50.919 Malignant neoplasm of unspecified site of unspecified female breast; Z88.1 Allergy status to other antibiotic agents
CPT/HCPCS: 32555; 71045; 85049; 85610; 85730

== ENCOUNTER 2017-07-21 09:06 | Day surgery (SDC) | payer OTHER ==
[2017-07-21 09:38] LABS: Mean Platelet Volume 8.5; Platelet Count 320 k/uL (150-450)
[2017-07-21 09:47] LABS: Prothrombin Time 9.8 sec (9.0-12.0)
[2017-07-21 09:59] VITALS: TEMP 97.9
--- NOTE | 2017-07-21 11:23 | XR ---
EXAMINATION TYPE: XR chest 1V DATE OF EXAM: 07/21/2017 COMPARISON: 06/16/2017 HISTORY: 56-year-old female status post left thoracentesis for pleural effusion TECHNIQUE: Single frontal view of the chest is obtained. FINDINGS: Heart normal size. Mild diffuse interstitial prominence is similar. As compared to 06/16/2017, there a re similar small bilateral pleural effusions with adjacent opacity. No appreciable pneumothorax parti cularly on the left. IMPRESSION: Residual small bilateral pleural effusions with adjacent atelectasis and/or consolidation. Overall ap pearance is similar to 06/16/2017. No appreciable pneumothorax.
[2017-07-21 11:25] VITALS: RESP 16
[2017-07-21 11:26] VITALS: PULSE 90
[2017-07-21 11:27] VITALS: BP 118/74
--- NOTE | 2017-07-21 14:34 | US ---
EXAMINATION TYPE: US thoracentesis DATE OF EXAM: 07/21/2017 COMPARISON: NONE HISTORY: Pleural effusion. FINDINGS: Maximal barrier technique was utilized. The skin overlying a suitable pocket of fluid was localized and the overlying skin prepped and draped. Lidocaine was used for local anesthesia. Ultras ound was used with sterile technique. A 5 Setswana catheter over guide needle was advanced into the pl eural fluid collection using ultrasound guidance and the catheter advanced, needle removed. Approxim ately 0.68 liter(s) of serous fluid was removed. Catheter was withdrawn and hemostasis achieved. Th ere is no immediate complication. The patient discharged in stable condition without complication. IMPRESSION: STATUS POST ULTRASOUND GUIDED THORACENTESIS, POST PROCEDURE CHEST X-RAY PENDING. THIS [place] OCEDURE WAS PERFORMED BY THE UNDERSIGNED.
== END 2017-07-21 11:25 | disposition home or self-care (01) ==
LOC: RADPROMAIN 09:06
PROVIDERS: ATTEND Internal Medicine Hematology & Oncology
DX: J90 Pleural effusion, not elsewhere classified (principal); C50.919 Malignant neoplasm of unspecified site of unspecified female breast; Z88.1 Allergy status to other antibiotic agents
CPT/HCPCS: 32555; 36415; 71045; 85049; 85610

== ENCOUNTER → 2017-07-28 | Outpatient (CLI) | payer OTHER ==
--- NOTE | 2017-07-28 21:22 | XR ---
EXAMINATION TYPE: XR chest 2V DATE OF EXAM: 07/28/2017 COMPARISON: Prior chest 07/21/2017 HISTORY: Breast carcinoma, shortness of breath and cough TECHNIQUE: Frontal and lateral views of the chest are obtained. FINDINGS: Findings are similar. There is blunting the costophrenic angle suggestive of small effusio ns and associated atelectasis. Breast prostheses are in place. Cardiomediastinal silhouette, pulmonar y vascularity and nancie are stable. Sclerotic density compatible with osseous metastatic disease in th e thoracic spine. IMPRESSION: Small pleural effusions and associated atelectasis versus pleural metastatic disease.
== END | disposition home or self-care (01) ==
LOC: RADXRMAIN 17:06
PROVIDERS: ATTEND Nurse Practitioner Adult Health
DX: C50.919 Malignant neoplasm of unspecified site of unspecified female breast (principal); J91.0 Malignant pleural effusion; D70.2 Other drug-induced agranulocytosis; Z17.0 Estrogen receptor positive status [ER+]
CPT/HCPCS: 71046

== ENCOUNTER 2017-07-30 07:56 | Day surgery (SDC) | payer OTHER ==
[2017-07-30 08:32] LABS: Mean Platelet Volume 8.5; Platelet Count 195 k/uL (150-450)
[2017-07-30 08:36] LABS: INR 1.1 (<1.2); Prothrombin Time 10.3 sec (9.0-12.0)
[2017-07-30 08:42] LABS: Blood Urea Nitrogen 20 mg/dL (7-17)
[2017-07-30 09:30] VITALS: RESP 18; TEMP 97.4
[2017-07-30 09:31] VITALS: BP 139/76; PULSE 83
--- NOTE | 2017-07-30 10:52 | US ---
Discontinued thoracentesis HISTORY: Pleural effusion Comparison to prior exam CHEST 07/21/2017, CHEST X-RAY 07/28/2017 Ultrasound of the posterior right and left chest shows minimal right pleural effusion, decreased left effusion as compared to previous exam. Following discussion with the patient, patient defers thoracentesis at this time. IMPRESSION: Discontinued thoracentesis
--- NOTE | 2017-07-31 07:32 | CT ---
EXAMINATION TYPE: CT ChestAbdPelvis w con DATE OF EXAM: 07/30/2017 INDICATION: follow up to breast CA COMPARISON: 04/06/2017, 12/30/2016 CT DLP: 2051 mGycm CONTRAST: Performed with Oral Contrast and with IV Contrast, patient injected with 100 mL of Isovue 300. TECHNIQUE: Axial images at 5 mm thick sections. Reconstructed images in the coronal plane. Delayed images through the kidneys. FINDINGS: CT CHEST: Portion of the thyroid visualized is normal. There is some increased density at the right apex which may has some spiculation. This is stable from the comparison and may represent some scarring. There are loculated pleural fluid collections at the left apex present previously this is in the post erior superior left apex and along the left mediastinal border. Bilateral lung base pleural effusions are present Bilateral breast prostheses are present. Recent postsurgical changes in the right axillary region which appears stable from April. No enlarged mediastinal or hilar adenopathy is evident. The ascending aorta diameter at the level of the main pulmonary artery is 2.7 cm. The main pulmonary artery diameter at the bifurcation is 2.[address] ABDOMEN: Liver: There is an ill-defined subtle hypodensity in the superior posterior right lobe liver measurin g 2.6 cm. This appears to been interval change. Additional workup for metastatic disease is recommend ed. There are multiple additional smaller hypodensities scattered throughout the liver. Spleen: Normal Pancreas: Normal Adrenal glands: The adrenal glands are normal. Gallbladder: Cholelithiasis is present. Kidneys: No masses are evident. No hydronephrosis is present. No cysts are present. Delayed images were obtained through the kidneys, which remain unremarkable. Aorta: Vascular calcification is within the aorta. Inferior vena cava: Normal. CT PELVIS: Loops of bowel within the abdomen and pelvis are normal. There are loops of bowel which are incom pletely distended or lack oral contrast limiting their evaluation. Appendix: Normal as visualized. Urinary bladder: Urinary bladder is partially decompressed and has limited evaluation. Genitourinary structures: Uterus is unremarkable. Adnexal regions are clear. Osseous structures: There are extensive sclerotic lesions scattered throughout the pelvis and spine. Some left scapular sclerotic lesions are present. Clavicular and sternal sclerotic metastasis are pre sent. IMPRESSIONS: 1. Interval development of recurrent subtle hypodensities scattered throughout the liver with the lar gest measures 2.6 cm at the superior right lobe liver. Findings are suspicious for metastatic disease . 2. Multiple sclerotic metastasis again identified. 3. Bilateral pleural effusions, stable.
== END 2017-07-30 11:30 | disposition home or self-care (01) ==
LOC: RADPROMAIN 07:56
PROVIDERS: ATTEND Internal Medicine Hematology & Oncology
DX: J90 Pleural effusion, not elsewhere classified (principal); C50.919 Malignant neoplasm of unspecified site of unspecified female breast; C79.51 Secondary malignant neoplasm of bone; R93.2 Abnormal findings on diagnostic imaging of liver and biliary tract; Z53.8 Procedure and treatment not carried out for other reasons; Z88.1 Allergy status to other antibiotic agents
CPT/HCPCS: 82565; 84520; 85049; 85610; 36415; 76604; 71260; 74177; 32555; Q9967

== ENCOUNTER 2017-08-25 08:59 | Day surgery (SDC) | payer OTHER ==
[2017-08-25 09:30] VITALS: PULSE 100; RESP 20; TEMP 97.9
[2017-08-25 09:31] LABS: Mean Platelet Volume 7.7; Platelet Count 262 k/uL (150-450)
[2017-08-25 09:37] LABS: Prothrombin Time 9.9 sec (9.0-12.0)
[2017-08-25 10:30] VITALS: BP 113/71
[2017-08-25] MEDS ORDERED: LIDOCAINE 1% INJ 10MG/ML (20 ML MDV) SQ ONE (10:36)
--- NOTE | 2017-08-25 10:48 | XR ---
EXAMINATION TYPE: XR chest 1V DATE OF EXAM: 08/25/2017 COMPARISON: Prior chest x-ray 07/28/2017 HISTORY: Status post left thoracentesis TECHNIQUE: Single frontal view of the chest is obtained. FINDINGS: There is no significant interval change. Blunting the costophrenic angles is again noted. Heart size is stable. No evident pneumothorax. IMPRESSION: No evident complication status post thoracentesis.
--- NOTE | 2017-08-25 13:35 | US ---
EXAMINATION TYPE: US thoracentesis DATE OF EXAM: 08/25/2017 COMPARISON: NONE HISTORY: Pleural effusion, breast cancer. FINDINGS: Maximal barrier technique was utilized. The skin overlying a suitable pocket of fluid was localized and the overlying skin prepped and draped. Lidocaine was used for local anesthesia. Ultras ound was used with sterile technique. A 5 Bolivian catheter over guide needle was advanced into the pl eural fluid collection using ultrasound guidance and the catheter advanced, needle removed. Approxim ately 0.6 by liter(s) of trevor fluid was removed. Catheter was withdrawn and hemostasis achieved. T here is no immediate complication. The patient discharged in stable condition without complication. IMPRESSION: STATUS POST ULTRASOUND GUIDED THORACENTESIS, POST PROCEDURE CHEST X-RAY PENDING. THIS [place] OCEDURE WAS PERFORMED BY THE UNDERSIGNED.
== END 2017-08-25 10:55 | disposition home or self-care (01) ==
LOC: RADPROMAIN 08:59
PROVIDERS: ATTEND Internal Medicine Hematology & Oncology
DX: J90 Pleural effusion, not elsewhere classified (principal); C50.919 Malignant neoplasm of unspecified site of unspecified female breast
CPT/HCPCS: 85049; 85610; 36415; 71045; 32555; J2001

== ENCOUNTER 2017-09-04 21:49 | Inpatient (IN) | payer OTHER ==
[2017-09-04] MEDS ORDERED: IPRATROPIUM 0.5 MG/2.5 ML NEBU INHALATION STA (22:03)
[2017-09-04] MEDS ORDERED: ALBUTEROL NEBULIZED 2.5 MG/3 ML INHALATION STA (22:03)
[2017-09-04 22:26] LABS: Basophils # (A) 0.1 k/uL (0-0.2); Basophils % (A) 1 %; Eosinophils # (A) 0.2 k/uL (0-0.7); Eosinophils % (A) 3 %; HCT 37.6 % (34.0-46.0); Hypochromasia Moderate; Lymphocytes # (A) 0.9 k/uL (1.0-4.8); Lymphocytes % (A) 11 %; MCH 32.2 pg (25.0-35.0); MCHC 31.9 g/dL (31.0-37.0); Macrocytosis Slight; Mean Platelet Volume 7.1; Monocytes # (A) 0.6 k/uL (0-1.0); Monocytes % (A) 7 %; Neutrophils % (A) 76 %; Platelet Count 214 k/uL (150-450); Poikilocytosis Slight; RBC 3.72 m/uL (3.80-5.40); WBC 7.8 k/uL (3.8-10.6)
[2017-09-04 22:31] LABS: Partial Thromboplastin Time 28.6 sec (22.0-30.0)
--- NOTE | 2017-09-04 22:31 | ED ---
General Adult HPI - General Chief complaint: Shortness of Breath Stated complaint: LESLIE Time Seen by Provider: 09/04/17 22:02 Source: patient, RN notes reviewed, old records reviewed Mode of arrival: ambulatory Limitations: no limitations - History of Present Illness Initial comments: This is a 36-year-old female the ER for evaluation. Patient stated presents for evaluation significant shortness of breath. Patient has no history of lung CA. Patient is had increasing shortness of breath 2 days. No fever no travel history no pain. Patient also has known history of COPD - Related Data Home Medications Medication Instructions Recorded Confirmed Albuterol Sulfate [Proair 1 puff PO RT-Q6H PRN 09/06/16 09/04/17 Respiclick] Levothyroxine Sodium [Synthroid] 150 mcg PO DAILY 09/06/16 09/04/17 Zolpidem [Ambien] 10 mg PO HS PRN 09/16/16 09/04/17 oxyCODONE-APAP 10-325MG [Percocet 1 tab PO Q8HR PRN 05/06/17 09/04/17 10-325 mg] Calcium Carbonate/Vitamin D3 1 tab PO DAILY 06/16/17 09/04/17 [Calcium 500-Vit D3 600 Tablet] Loratadine-Pseudoeph 10-240 mg 1 tab PO DAILY 07/30/17 09/04/17 [Claritin-D 24 Hour] oxyCODONE HCL 20 mg PO BID PRN 09/04/17 09/04/17 Allergies Allergy/AdvReac Type Severity Reaction Status Date / Time ciprofloxacin [From Cipro] Allergy Rash/Hives Verified 09/04/17 22:42 Review of Systems ROS Statement: Those systems with pertinent positive or pertinent negative responses have been documented in the HPI. ROS Other: All systems not noted in ROS Statement are negative. Past Medical History Past Medical History: Cancer, COPD, Thyroid Disorder Additional Past Medical History / Comment(s): History of right-sided breast CA- "positive for brca2 gene mutation, the patient is status post bilateral mastectomy chemotherapy and radiation therapy with subsequent breast reconstruction surgery, COPD, hypothyroidism, recent hospitalization for acute respiratory failure requiring intubation mechanical ventilation, bilateral pleural effusion, malignant at this stage with breast primary. Home O2 3L PER N /C prn, mets to bone receiving radiation. History of Any Multi-Drug Resistant Organisms: None Reported Additional Past Surgical History / Comment(s): bilateral mastectomy, nisreen thoracentesis, rt ear"mass removed-benign", rt foot sx d/t shattered heel. Multi Thoracentesis Left and right Past Anesthesia/Blood Transfusion Reactions: No Reported Reaction Past Psychological History: No Psychological Hx Reported Smoking Status: Former smoker Past Alcohol Use History: None Reported Past Drug Use History: None Reported - Past Family History Mother Family Medical History: COPD Additional Family Medical History / Comment(s): emphysema Father Family Medical History: Myocardial Infarction ([place]) General Exam Limitations: no limitations General appearance: alert, in no apparent distress Head exam: Present: atraumatic, normocephalic, normal inspection Eye exam: Present: normal appearance, PERRL, EOMI. Absent: scleral icterus, conjunctival injection, periorbital swelling ENT exam: Present: normal exam, mucous membranes moist Neck exam: Present: normal inspection. Absent: tenderness, meningismus, lymphadenopathy Respiratory exam: Present: normal lung sounds bilaterally. Absent: respiratory distress, wheezes, rales, rhonchi, stridor Cardiovascular Exam: Present: regular rate, normal rhythm, normal heart sounds. Absent: systolic murmur, diastolic murmur, rubs, gallop, clicks GI/Abdominal exam: Present: soft, normal bowel sounds. Absent: distended, tenderness, guarding, rebound, rigid Extremities exam: Present: normal inspection, full ROM, normal capillary refill. Absent: tenderness, pedal edema, joint swelling, calf tenderness Back exam: Present: normal inspection Neurological exam: Present: alert, oriented X3, CN II-XII intact Psychiatric exam: Present: normal affect, normal mood Skin exam: Present: warm, dry, intact, normal color. Absent: rash Course Vital Signs 09/04/17 09/04/17 09/04/17 21:51 22:28 23:01 Temperature 98.9 F Pulse Rate 98 100 104 H Respiratory 26 H Rate Blood Pressure 136/82 O2 Sat by Pulse 92 L Oximetry 09/04/17 09/04/17 23:17 23:47 Temperature 97.7 F Pulse Rate 94 99 Respiratory 18 20 Rate Blood Pressure 113/62 115/62 O2 Sat by Pulse 97 100 Oximetry - Reevaluation(s) Reevaluation #1: 09/05/17 01:30 Medical records reviewed. Reevaluation #2: 09/05/17 01:30 Patient has adequate pain control currently EKG Findings - EKG Comments: EKG Findings:: EKG shows sinus rhythm rate of 95, SC 180, QRS 94, QTC 449 Medical Decision Making - Medical Decision Making 56 female to be admitted for continued breathing treatments. Chest pain and pain control. Patient also having acute cholecystitis we'll place on antibiotics - Lab Data Result diagrams: 09/04/17 22:02 09/04/17 22:02 Lab Results 09/04/17 09/04/17 09/04/17 Range/Units 22:02 22:02 22:02 WBC 7.8 (3.8-10.6) k/uL RBC 3.72 L (3.80-5.40) m/uL Hgb 12.0 (11.4-16.0) gm/dL Hct 37.6 (34.0-46.0) % MCV 101.0 H (80.0-100.0) fL MCH 32.2 (25.0-35.0) pg MCHC 31.9 (31.0-37.0) g/dL RDW 16.0 H (11.5-15.5) % Plt Count 214 (150-450) k/uL Neutrophils % 76 % Lymphocytes % 11 % Monocytes % 7 % Eosinophils % 3 % Basophils % 1 % Neutrophils # 6.0 (1.3-7.7) k/uL Lymphocytes # 0.9 L (1.0-4.8) k/uL Monocytes # 0.6 (0-1.0) k/uL Eosinophils # 0.2 (0-0.7) k/uL Basophils # 0.1 (0-0.2) k/uL Hypochromasia Moderate Poikilocytosis Slight Macrocytosis Slight PT (9.0-12.0) sec INR (<1.2) APTT (22.0-30.0) sec Sodium 140 (137-145) mmol/L Potassium 4.3 (3.5-5.1) mmol/L Chloride 100 (98-107) mmol/L Carbon Dioxide 30 (22-30) mmol/L Anion Gap 10 mmol/L BUN 15 (7-17) mg/dL Creatinine 0.70 (0.52-1.04) mg/dL Est GFR (CKD-EPI)AfAm >90 (>60 ml/min/1.73 sqM) Est GFR (CKD-EPI)NonAf >90 (>60 ml/min/1.73 sqM) Glucose 141 H (74-99) mg/dL Calcium 8.6 (8.4-10.2) mg/dL Magnesium 1.9 (1.6-2.3) mg/dL Total Bilirubin 0.2 (0.2-1.3) mg/dL AST 85 H (14-36) U/L ALT 85 H (9-52) U/L Alkaline Phosphatase 160 H (38-126) U/L Total Creatine Kinase 85 (30-135) U/L CK-MB (CK-2) 0.8 (0.0-2.4) ng/mL CK-MB (CK-2) Rel Index 0.9 Troponin I <0.012 (0.000-0.034) ng/mL NT-Pro-B Natriuret Pep pg/mL Total Protein 6.1 L (6.3-8.2) g/dL Albumin 3.5 (3.5-5.0) g/dL 09/04/17 09/04/17 Range/Units 22:02 22:02 WBC (3.8-10.6) k/uL RBC (3.80-5.40) m/uL Hgb (11.4-16.0) gm/dL Hct (34.0-46.0) % MCV (80.0-100.0) fL MCH (25.0-35.0) pg MCHC (31.0-37.0) g/dL RDW (11.5-15.5) % Plt Count (150-450) k/uL Neutrophils % % Lymphocytes % % Monocytes % % Eosinophils % % Basophils % % Neutrophils # (1.3-7.7) k/uL Lymphocytes # (1.0-4.8) k/uL Monocytes # (0-1.0) k/uL Eosinophils # (0-0.7) k/uL Basophils # (0-0.2) k/uL Hypochromasia Poikilocytosis Macrocytosis PT 10.0 (9.0-12.0) sec INR 1.0 (<1.2) APTT 28.6 (22.0-30.0) sec Sodium (137-145) mmol/L Potassium (3.5-5.1) mmol/L Chloride (98-107) mmol/L Carbon Dioxide (22-30) mmol/L Anion Gap mmol/L BUN (7-17) mg/dL Creatinine (0.52-1.04) mg/dL Est GFR (CKD-EPI)AfAm (>60 ml/min/1.73 sqM) Est GFR (CKD-EPI)NonAf (>60 ml/min/1.73 sqM) Glucose (74-99) mg/dL Calcium (8.4-10.2) mg/dL Magnesium (1.6-2.3) mg/dL Total Bilirubin (0.2-1.3) mg/dL AST (14-36) U/L ALT (9-52) U/L Alkaline Phosphatase (38-126) U/L Total Creatine Kinase (30-135) U/L CK-MB (CK-2) (0.0-2.4) ng/mL CK-MB (CK-2) Rel Index Troponin I (0.000-0.034) ng/mL NT-Pro-B Natriuret Pep 147 pg/mL Total Protein (6.3-8.2) g/dL Albumin (3.5-5.0) g/dL - Radiology Data Radiology results: report reviewed (Chest x-ray negative, ultrasound gallbladder is positive for acute cholecystitis), image reviewed Disposition Clinical Impression: Acute cholecystitis, Acute exacerbation of chronic obstructive airways disease , Metastatic breast cancer Disposition: ADMITTED IP TO THIS HOSP Condition: Fair Is patient prescribed a controlled substance at d/c from ED?: No Referrals: Katey Rodriguez MD [Primary Care Provider] - 1-2 days
[2017-09-04 22:33] LABS: ALT 85 U/L (9-52); AST 85 U/L (14-36); Albumin 3.5 g/dL (3.5-5.0); Alkaline Phosphatase 160 U/L (38-126); Anion Gap 10 mmol/L; Blood Urea Nitrogen 15 mg/dL (7-17); Calcium 8.6 mg/dL (8.4-10.2); Carbon Dioxide 30 mmol/L (22-30); Chloride 100 mmol/L (98-107); Glucose 141 mg/dL (74-99); Magnesium 1.9 mg/dL (1.6-2.3); Potassium 4.3 mmol/L (3.5-5.1); Sodium 140 mmol/L (137-145); Total Bilirubin 0.2 mg/dL (0.2-1.3); Total Protein 6.1 g/dL (6.3-8.2)
[2017-09-04 22:43] LABS: Creatine Kinase 85 U/L (30-135)
[2017-09-04 22:57] LABS: Creatine Kinase MB 0.8 ng/mL (0.0-2.4); Troponin I <0.012 ng/mL (0.000-0.034)
[2017-09-04] MEDS ORDERED: DEXAMETHASONE SOD PHOSPHATE 10 MG/ML 1 ML VIAL IV STA (23:14)
[2017-09-04] MEDS ORDERED: MORPHINE SULFATE 2 MG/ML SYRINGE IVP STA (23:14)
[2017-09-04] MEDS ORDERED: KETOROLAC 30 MG/ML 1 ML VIAL IVP STA (23:14)
--- NOTE | 2017-09-04 23:21 | XR ---
EXAMINATION TYPE: XR chest 2V DATE OF EXAM: 09/04/2017 COMPARISON: 08/25/2017 HISTORY: Difficulty breathing and chest pain TECHNIQUE: Frontal and lateral views of the chest are obtained. FINDINGS: Heart and mediastinum are normal. There is some blunting of the costophrenic angles. There is no definite heart failure. There are infiltrates at the lung bases. There are chest leads IMPRESSION: Bilateral pleural effusions with basilar pulmonary infiltrates. This appears the same or slightly worse than last exam. No gross heart failure.
[2017-09-05] MEDS ORDERED: HYDROmorphone 0.5 MG/0.5 ML SYRINGE IVP STA (00:28)
--- NOTE | 2017-09-05 01:21 | US ---
EXAMINATION TYPE: US gallbladder DATE OF EXAM: 09/05/2017 COMPARISON: NONE CLINICAL HISTORY: Pain. RUQ pain Stage 4 breast Cancer, Liver mets and bone Cancer. EXAM MEASUREMENTS: Liver Length: 21.2 cm Gallbladder Wall: 0.6 cm CBD: 0.50 cm Right Kidney: 10.8 x 3.9 x 3.9 cm Pancreas: Obscured by bowel gas Liver: Multiple lesions seen. Gallbladder: Gallstones seen with a thickened wall. Evidence for sonographic Huang's sign: No CBD: wnl Right Kidney: No hydronephrosis or masses seen Multiple gallstones seen with a thickened wall. IMPRESSION: Multiple large gallstones. No dilated ducts. Gallbladder wall thickening up to 6 mm. This is consistent with acute and chronic cholecystitis. No dilated ducts.
[2017-09-05] MEDS ORDERED: SODIUM CHLORIDE 0.9% 1,000 ML IV ONE (01:27)
[2017-09-05] MEDS ORDERED: AMPICILLIN-SULBACTAM 3 GM in SODIUM CHLORIDE 0.9% 100 ML IVPB STA (01:27)
[2017-09-05] MEDS ORDERED: IPRATROPIUM-ALBUTEROL 3 ML NEB INHALATION STA (01:30)
[2017-09-05] MEDS ORDERED: ONDANSETRON 4 MG/2 ML VIAL IVP STA (01:30)
[2017-09-05] MEDS ORDERED: ONDANSETRON 4 MG/2 ML VIAL IVP PRN ×2 (01:30→11:04)
[2017-09-05] MEDS ORDERED: PANTOPRAZOLE 40 MG/10 ML VIAL IVP STA (01:30)
[2017-09-05] MEDS ORDERED: IPRATROPIUM-ALBUTEROL 3 ML NEB INHALATION PRN (01:45)
[2017-09-05] MEDS ORDERED: IPRATROPIUM-ALBUTEROL 3 ML NEB INHALATION SCH (04:00)
[2017-09-05] MEDS: MORPHINE SULFATE 2 MG/ML SYRINGE IVP PRN ×2 (05:26→20:24)
[2017-09-05] MEDS ORDERED: AMPICILLIN-SULBACTAM 3 GM in SODIUM CHLORIDE 0.9% 100 ML IVPB SCH (06:00)
[2017-09-05] MEDS: IPRATROPIUM-ALBUTEROL 3 ML NEB INHALATION SCH ×4 (08:28→19:34)
--- NOTE | 2017-09-05 08:46 | P.GSHP ---
History of Present Illness H&P Date: 09/05/17 Chief Complaint: Right upper quadrant pain This a 56-year-old female who presents with a four-day history of right upper quadrant pain. Patient was worked up emergency room without evidence of cholecystitis. She is extremely thickened gallbladder wall on ultrasound. Patient states that she is marked right upper quadrant pain. Past Medical History Past Medical History: Cancer, COPD, Thyroid Disorder Additional Past Medical History / Comment(s): History of right-sided breast CA- "positive for brca2 gene mutation, the patient is status post bilateral mastectomy chemotherapy and radiation therapy with subsequent breast reconstruction surgery, COPD, hypothyroidism, recent hospitalization for acute respiratory failure requiring intubation mechanical ventilation, bilateral pleural effusion, malignant at this stage with breast primary. Home O2 3L PER N /C prn, mets to bone receiving radiation. History of Any Multi-Drug Resistant Organisms: None Reported Past Surgical History: Ear Surgery Additional Past Surgical History / Comment(s): bilateral mastectomy, nisreen thoracentesis, rt ear"mass removed-benign", rt foot sx d/t shattered heel. Multi Thoracentesis Left and right Past Anesthesia/Blood Transfusion Reactions: No Reported Reaction Past Psychological History: No Psychological Hx Reported Additional Psychological History / Comment(s): pt is independant. no outside services recieved. has a nebulizer. Smoking Status: Former smoker Past Alcohol Use History: None Reported Additional Past Alcohol Use History / Comment(s): pt stated she started smoking at age 15 and quit smoked 2 ppd. Past Drug Use History: None Reported Additional Drug Use History / Comment(s): cannibis oil started 12/2016 - Past Family History Mother Family Medical History: COPD Additional Family Medical History / Comment(s): emphysema Father Family Medical History: Myocardial Infarction ([place]) Medications and Allergies Home Medications Medication Instructions Recorded Confirmed Type Albuterol Sulfate [Proair 1 puff PO RT-Q6H PRN 09/06/16 09/04/17 History Respiclick] Levothyroxine Sodium [Synthroid] 150 mcg PO DAILY 09/06/16 09/04/17 History Zolpidem [Ambien] 10 mg PO HS PRN 09/16/16 09/04/17 History oxyCODONE-APAP 10-325MG [Percocet 1 tab PO Q8HR PRN 05/06/17 09/04/17 History 10-325 mg] Calcium Carbonate/Vitamin D3 1 tab PO DAILY 06/16/17 09/04/17 History [Calcium 500-Vit D3 600 Tablet] Loratadine-Pseudoeph 10-240 mg 1 tab PO DAILY 07/30/17 09/04/17 History [Claritin-D 24 Hour] oxyCODONE HCL 20 mg PO BID PRN 09/04/17 09/04/17 History Allergies Allergy/AdvReac Type Severity Reaction Status Date / Time ciprofloxacin [From Cipro] Allergy Rash/Hives Verified 09/04/17 22:42 Surgical - Exam Vital Signs Temp Pulse Resp BP Pulse Ox 98.9 F 98 26 H 136/82 92 L 09/04/17 21:51 09/04/17 21:51 09/04/17 21:51 09/04/17 21:51 09/04/17 21:51 - General well developed, no distress - Eyes PERRL - ENT normal pinna - Neck no masses - Respiratory normal expansion - Cardiovascular Rhythm: regular - Abdomen Abdomen soft there is some mild distention. There is significant right upper quadrant pain with palpation. Abdomen: soft Results - Labs 09/04/17 22:02 09/04/17 22:02 Abnormal Lab Results - Last 24 Hours (Table) 09/04/17 09/04/17 Range/Units 22:02 22:02 RBC 3.72 L (3.80-5.40) m/uL MCV 101.0 H (80.0-100.0) fL RDW 16.0 H (11.5-15.5) % Lymphocytes # 0.9 L (1.0-4.8) k/uL Glucose 141 H (74-99) mg/dL AST 85 H (14-36) U/L ALT 85 H (9-52) U/L Alkaline Phosphatase 160 H (38-126) U/L Total Protein 6.1 L (6.3-8.2) g/dL Diabetes panel 09/04/17 Range/Units 22:02 Sodium 140 (137-145) mmol/L Potassium 4.3 (3.5-5.1) mmol/L Chloride 100 (98-107) mmol/L Carbon Dioxide 30 (22-30) mmol/L BUN 15 (7-17) mg/dL Creatinine 0.70 (0.52-1.04) mg/dL Glucose 141 H (74-99) mg/dL Calcium 8.6 (8.4-10.2) mg/dL AST 85 H (14-36) U/L ALT 85 H (9-52) U/L Alkaline Phosphatase 160 H (38-126) U/L Total Protein 6.1 L (6.3-8.2) g/dL Albumin 3.5 (3.5-5.0) g/dL Calcium panel 09/04/17 Range/Units 22:02 Calcium 8.6 (8.4-10.2) mg/dL Albumin 3.5 (3.5-5.0) g/dL Pituitary panel 09/04/17 Range/Units 22:02 Sodium 140 (137-145) mmol/L Potassium 4.3 (3.5-5.1) mmol/L Chloride 100 (98-107) mmol/L Carbon Dioxide 30 (22-30) mmol/L BUN 15 (7-17) mg/dL Creatinine 0.70 (0.52-1.04) mg/dL Glucose 141 H (74-99) mg/dL Calcium 8.6 (8.4-10.2) mg/dL Adrenal panel 09/04/17 Range/Units 22:02 Sodium 140 (137-145) mmol/L Potassium 4.3 (3.5-5.1) mmol/L Chloride 100 (98-107) mmol/L Carbon Dioxide 30 (22-30) mmol/L BUN 15 (7-17) mg/dL Creatinine 0.70 (0.52-1.04) mg/dL Glucose 141 H (74-99) mg/dL Calcium 8.6 (8.4-10.2) mg/dL Total Bilirubin 0.2 (0.2-1.3) mg/dL AST 85 H (14-36) U/L ALT 85 H (9-52) U/L Alkaline Phosphatase 160 H (38-126) U/L Total Protein 6.1 L (6.3-8.2) g/dL Albumin 3.5 (3.5-5.0) g/dL - Imaging US - abdomen: report reviewed (Thickened gallbladder wall, cholelithiasis) Assessment and Plan Assessment: Acute cholecystitis. Patient will undergo laparoscopic cholestatic. I discussed the risk of possible conversion to the open procedure. Also discussed with possible risk of bile duct injury.
[2017-09-05] MEDS: AMPICILLIN-SULBACTAM 3 GM in SODIUM CHLORIDE 0.9% 100 ML IVPB SCH ×3 (09:05→19:33)
[2017-09-05] MEDS: PANTOPRAZOLE 40 MG/10 ML VIAL IVP SCH (09:05)
[2017-09-05] MEDS ORDERED: IV FLUID CONTINUATION 1,000 ML IV ONE (09:39)
[2017-09-05] MEDS ORDERED: ROCURONIUM BROMIDE 10 MG/ML 10 ML VIAL IV ONE (09:48)
[2017-09-05] MEDS ORDERED: SUCCINYLCHOLINE CHLORIDE 100 MG/5 ML SYR IV ONE (09:48)
[2017-09-05] MEDS ORDERED: LIDOCAINE 1% INJ 10MG/ML (20 ML MDV) ONE (09:48)
[2017-09-05] MEDS ORDERED: KETOROLAC 30 MG/ML 1 ML VIAL ONE (09:48)
[2017-09-05] MEDS ORDERED: MIDAZOLAM 2 MG/2 ML VIAL ONE (09:48)
[2017-09-05] MEDS ORDERED: GLYCOPYRROLATE 0.2 MG/ML 2 ML VIAL ONE (09:48)
[2017-09-05] MEDS ORDERED: fentaNYL (PF) 50 MCG/ML 2 ML AMP ONE (09:48)
[2017-09-05] MEDS ORDERED: PROPOFOL 10 MG/ML 20 ML VIAL IV ONE (09:48)
[2017-09-05] MEDS ORDERED: NEOSTIGMINE 1 MG/ML 10 ML VIAL ONE (09:48)
[2017-09-05] MEDS ORDERED: BUPIVACAINE (PF) 0.5% 30 ML VIAL SQ ONE ×3 (10:11→11:04)
[2017-09-05] MEDS ORDERED: LACTATED RINGERS 1,000 ML IV ONE ×2 (10:33→11:04)
[2017-09-05] MEDS: ENOXAPARIN 40 MG/0.4 ML SYRINGE SQ SCH (10:37)
[2017-09-05] MEDS ORDERED: HYDROcodone/APAP 5-325MG 1 EACH TAB PO PRN (11:04)
[2017-09-05] MEDS ORDERED: NALOXONE 0.4 MG/ML 1 ML VIAL IV PRN (11:04)
--- NOTE | 2017-09-05 11:04 | P.OP ---
Date of Procedure: 09/05/17 Preoperative Diagnosis: Acute cholecystitis Postoperative Diagnosis: Acute cholecystitis Procedure(s) Performed: Laparoscopic cholecystectomy Anesthesia: RAUL Surgeon: Jin Urban Estimated Blood Loss (ml): 20 Pathology: other (Gallbladder) Condition: stable Disposition: PACU Description of Procedure: The patient was placed on the operating table. The patient received a general endotracheal tube anesthesia. The patients abdomen was prepped and draped in the usual sterile fashion. Through an infraumbilical stab incision, the fascia of the anterior abdominal wall was grasped with a pair of Kochers and then the Veress needle was placed in the peritoneal cavity. Position of the Veress needle was confirmed with positive drop test. The abdomen was then insufflated. After adequate insufflation, the 10 mm trocar was placed in the peritoneal cavity. Following this the laparoscope was placed in the peritoneal cavity. The patient was placed in the head-up, right side up position and then a 5 mm trocar was placed in the right lateral and right subcostal position under direct visualization. A 8 mm trocar was placed in the epigastric position. The gallbladder was grasped in the fundus and infundibulum. Traction on the gallbladder was placed in the lateral and the cephalad positions. The gallbladder was very inflamed. The triangle of Calot was visualized.. The cystic duct was bluntly dissected until the union of the cystic duct and common bile duct was seen. The cystic duct was then divided and sealed with the Harmonic scissors. A PDS Endoloop was then placed throughout the cystic duct stump. The cystic artery divided and sealed with the Harmonic scissors. The gallbladder was then removed from the liver bed using Harmonic scissors. The gallbladder was then extracted through the epigastric port site. Operative field was checked for any bleeding spots and Harmonic scissors was used to coagulate the liver bed. The abdomen was irrigated. A CAROLE drains placed the gallbladder fossa and brought out through the lateral 5 mm trocar site. The trocars were removed. The skin was closed using interrupted 3-0 Vicryl suture. Dermabond dressing were applied. The patient tolerated the procedure well.
[2017-09-05] MEDS: HYDROmorphone 1 MG/ML 1 ML SYRINGE IVP ONE ×4 (11:36→12:02)
[2017-09-05] MEDS: HYDROmorphone 0.5 MG/0.5 ML SYRINGE IVP PRN ×2 (14:16→17:24)
--- NOTE | 2017-09-05 16:22 | CONS ---
CONSULTATION DATE OF SERVICE: 09/05/2017 REASON FOR CONSULTATION: Breast carcinoma. CHIEF COMPLAINT: Right upper quadrant pain. Alexa is a very pleasant, 56 years old lady, very well known to me. The patient was initially diagnosed in 2008 with right breast carcinoma. It was ERPR positive and HER-2/fidel negative. She had a mastectomy and it was T2 N2 disease and with 17/20 nodes were positive for metastatic disease, and also the patient had at the same time prophylactic left mastectomy and bilateral reconstruction. Subsequently, she received adjuvant chemotherapy with dose dense ACT. Then she had radiation therapy and started tamoxifen. Then subsequently, she was switched over to Arimidex in August of 2010 and then she lost for followup due to insurance reason for a while until 2012 when she was seen by Dr. Curtis and then she lost followup again and the patient ended up discontinuing her tamoxifen on her own. She did well till April of 2016 when she presented with progressive disease, shortness of breath, and bilateral pleural effusion and she had diagnostic thoracentesis, which was positive for metastatic breast carcinoma that was again ERPR positive and HER2 fidel negative and further imaging studies at that time with CAT scan of the chest, abdomen, and pelvis reveals lung nodules and reveal evidence of liver metastases as well. The patient was started on systemic treatment with a combination of oral femora, and systemic treatment with hormonal therapy with a combination of oral femora and Ibrance. This was started in August of 2016. Then in April of 2017, she had a palliative radiation therapy to T- spine due to bone lesions causing pain and; however, the patient had 3/5 planned radiation therapy and she declined further radiation treatment. Of note, the patient also has been receiving Xgeva for her bone metastases and also she has been on calcium and vitamin D supplement. She continued with the same regimen until July of [address] scan of the chest, abdomen and pelvis reveal evidence of progression of her liver disease. Of note, the patient has had multiple palliative thoracentesis since her diagnosis of recurrent disease in July of 2016, which has slowed down significantly on the treatment with femora and Ibrance. However, in July of 2017 when repeat CAT scan revealed evidence of disease progression, the combination of femora and Ibrance were discontinued and she was started on second-line hormonal therapy with an intramuscular injection of Faslodex that was started on August 12, 2017. The patient came in last week to the office complaining of significant worsening of right upper quadrant pain, was smoothed with the development of new right upper quadrant pain. However, the pain has got progressively worse over the last 2 days and so she came into the emergency department last night. She had an ultrasound of her gallbladder, which revealed multiple large gallstones with thickening of the gallbladder wall up to 6 mm. It was felt this was consistent with acute and chronic cholecystitis. The patient was taken earlier to today to the operating room and she had the laparoscopic cholecystectomy performed by Dr. HART now. Now, which is done, she is back to the oncology floor. She is alert and oriented, and she feels comfortable. She has stated she complain of right upper quadrant pain with some nausea. No vomiting. No fever or chills. She is eating fine and she was eating fine prior to the operation. No melena, hematochezia, hematuria, hemoptysis, hematemesis or epistaxis. PAST MEDICAL HISTORY: In addition to what is stated above in regard to her breast carcinoma, she is also known to have BRCA2 mutation. She has a history of emphysema, otherwise negative. SURGICAL HISTORY: She had bilateral mastectomies in the past. FAMILY HISTORY: Maternal grandmother had breast cancer. Paternal grandmother had breast cancer. She had a sister who from breast cancer. REVIEW OF SYSTEMS: As stated above in the history of present illness. HOME MEDICATION: Include oxycodone 20 mg b.i.d., Percocet 10/325 mg every 8 hours as needed, Ambien 10 mg q.h.s. as needed, and Claritin-D once a day. Synthroid 150 mcg daily, calcium 500 and vitamin D3 six hundred daily, and albuterol inhaler as needed. SOCIAL HISTORY: She is a former smoker. She is single. No history of alcohol abuse or substance abuse. On physical examination she is alert, oriented x3. She does not appear to be in acute distress at this time. Well developed, well nourished. Her vital signs are temperature 97.2 afebrile, pulse 80 regular, respirations 18, blood pressure 110/69. HEENT: Normocephalic, atraumatic. No obvious scleral icterus. Neck is supple. No jugular venous distention. Chest equal expansion bilaterally. Lungs are clear to auscultation except for decreased breath sounds in the right base. Heart is regular rate and rhythm. Abdomen is somewhat distended, postoperatively. There is tenderness and drainage tube in the right upper quadrant. Extremities reveal no edema. Skin no significant bruises or ecchymosis. LYMPHATICS: No cervical, supraclavicular lymph node. MUSCULOSKELETAL: Moving all extremities appropriately. No percussion tenderness or response to sternum. LABORATORY DATA: WBC is 7.8, hemoglobin 12.0, hematocrit 37.6, platelets are 214. Sodium 140, potassium 4.3, chloride 100, CO2 is 30, BUN 15, creatinine 0.75. AST is 85, ALT is 85, alkaline phosphatase is 160. IMPRESSION: 1. Right upper quadrant pain, possibly related to acute cholecystitis. 2. Metastatic breast carcinoma with diagnostic and therapeutic circumstances stated above. 3. BRCA 2 deleterious mutation. RECOMMENDATION: 1. Continue postoperative care. 2. Monitor blood count. 3. Continue current pain medication regimen. 4. The patient will resume Faslodex upon discharge from the hospital. Thank you. DIANNA / EL: [id number] /
[2017-09-05] MEDS: DOCUSATE 100 MG CAP PO SCH (20:24)
[2017-09-06] MEDS: MORPHINE SULFATE 2 MG/ML SYRINGE IVP PRN ×6 (00:47→23:47)
[2017-09-06] MEDS: AMPICILLIN-SULBACTAM 3 GM in SODIUM CHLORIDE 0.9% 100 ML IVPB SCH ×4 (03:52→19:22)
[2017-09-06] MEDS: IPRATROPIUM-ALBUTEROL 3 ML NEB INHALATION SCH ×4 (07:01→21:01)
[2017-09-06 07:47] LABS: Basophils % (A) 0 %; Eosinophils % (A) 0 %; HCT 32.7 % (34.0-46.0); HGB 10.2 gm/dL (11.4-16.0); Hypochromasia Marked; Lymphocytes # (A) 0.6 k/uL (1.0-4.8); Lymphocytes % (A) 6 %; MCH 31.7 pg (25.0-35.0); MCHC 31.1 g/dL (31.0-37.0); MCV 101.9 fL (80.0-100.0); Macrocytosis Slight; Mean Platelet Volume 7.5; Monocytes # (A) 0.8 k/uL (0-1.0); Monocytes % (A) 7 %; Neutrophils % (A) 85 %; Platelet Count 214 k/uL (150-450); Poikilocytosis Slight; RBC 3.21 m/uL (3.80-5.40); RDW 15.8 % (11.5-15.5); WBC 10.6 k/uL (3.8-10.6)
[2017-09-06 07:56] LABS: ALT 134 U/L (9-52); AST 172 U/L (14-36); Alkaline Phosphatase 136 U/L (38-126); Anion Gap 10 mmol/L; Blood Urea Nitrogen 14 mg/dL (7-17); Calcium 7.4 mg/dL (8.4-10.2); Carbon Dioxide 29 mmol/L (22-30); Chloride 102 mmol/L (98-107); Glucose 135 mg/dL (74-99); Potassium 4.5 mmol/L (3.5-5.1); Sodium 141 mmol/L (137-145); Total Bilirubin 0.2 mg/dL (0.2-1.3); Total Protein 5.3 g/dL (6.3-8.2)
--- NOTE | 2017-09-06 09:16 | P.PN ---
Subjective Progress Note Date: 09/06/17 Principal diagnosis: Acute cholecystitis The patient's postoperative day 1 for laparoscopic cholecystectomy for acute cholecystitis. She has some complaints of postoperative pain. She is requesting more food to eat. Objective - Vital Signs Vital signs: Vital Signs Temp 98.1 F 09/05/17 23:16 Pulse 72 09/05/17 23:16 Resp 16 09/05/17 19:44 BP 127/62 09/05/17 23:16 Pulse Ox 98 09/05/17 23:16 Intake & Output 09/05/17 09/06/17 09/06/17 18:59 06:59 18:59 Intake Total 1140 Output Total 380 100 Balance 760 -100 Intake: IV 900 Oral 240 Output: Drainage 210 100 Right Abdomen 210 100 Estimated Blood Loss 170 Other: Voiding Method Toilet Toilet # Voids 2 2 - Constitutional General appearance: Present: cooperative - Gastrointestinal Gastrointestinal Comment(s): Abdomen soft. Incision sites are clean and intact. There is serosanguineous fluid in the CAROLE drain. - Labs CBC & Chem 7: 09/06/17 06:54 09/06/17 06:54 Labs: Abnormal Lab Results - Last 24 Hours (Table) 09/06/17 09/06/17 Range/Units 06:54 06:54 RBC 3.21 L (3.80-5.40) m/uL Hgb 10.2 L (11.4-16.0) gm/dL Hct 32.7 L (34.0-46.0) % MCV 101.9 H (80.0-100.0) fL RDW 15.8 H (11.5-15.5) % Neutrophils # 9.0 H (1.3-7.7) k/uL Lymphocytes # 0.6 L (1.0-4.8) k/uL Glucose 135 H (74-99) mg/dL Calcium 7.4 L (8.4-10.2) mg/dL AST 172 H (14-36) U/L ALT 134 H (9-52) U/L Alkaline Phosphatase 136 H (38-126) U/L Total Protein 5.3 L (6.3-8.2) g/dL Albumin 3.0 L (3.5-5.0) g/dL Assessment and Plan Assessment: Status post laparoscopic cholecystectomy for acute cholecystitis. Patient will Receive IV antibiotic. She'll be discharged home the next 24-48 hours.
[2017-09-06] MEDS: PANTOPRAZOLE 40 MG/10 ML VIAL IVP SCH (10:58)
[2017-09-06] MEDS: ENOXAPARIN 40 MG/0.4 ML SYRINGE SQ SCH (10:58)
[2017-09-06] MEDS: DOCUSATE 100 MG CAP PO SCH ×2 (10:58→20:22)
[2017-09-07] MEDS: AMPICILLIN-SULBACTAM 3 GM in SODIUM CHLORIDE 0.9% 100 ML IVPB SCH ×4 (01:55→20:49)
[2017-09-07] MEDS: MORPHINE SULFATE 2 MG/ML SYRINGE IVP PRN ×3 (04:13→12:28)
[2017-09-07] MEDS: ENOXAPARIN 40 MG/0.4 ML SYRINGE SQ SCH (07:54)
[2017-09-07] MEDS: DOCUSATE 100 MG CAP PO SCH ×2 (07:54→20:50)
[2017-09-07] MEDS: PANTOPRAZOLE 40 MG/10 ML VIAL IVP SCH (07:54)
[2017-09-07] MEDS: IPRATROPIUM-ALBUTEROL 3 ML NEB INHALATION SCH ×4 (08:53→19:57)
--- NOTE | 2017-09-07 10:52 | P.PN ---
Subjective Progress Note Date: 09/07/17 56-year-old female seen evaluated sitting up in bed. Patient is status post laparoscopic cholecystectomy done on September 05 for acute cholecystitis. Patient states passing gas no stool urinating no difficulty tolerating a diet. Nursing reports patient needs encouragement to ambulate in the nevarez. CAROLE drain in place 100 mL's of bloody drainage noted in the bulb since 7 AM nursing reports a noted drainage around the CAROLE drain this morning hemoglobin this morning is 10.2 the was 12. Electrolytes within normal limits AST and ALT are elevated AST 172, ALT 134, alk phos 136 total bili 0.2 Objective - Vital Signs Vital signs: Vital Signs Temp 98 F 09/07/17 06:54 Pulse 104 H 09/07/17 06:54 Resp 17 09/07/17 06:54 BP 159/79 09/07/17 06:54 Pulse Ox 93 L 09/07/17 06:54 Intake & Output 09/06/17 09/07/17 09/07/17 18:59 06:59 18:59 Intake Total 360 2200 Output Total 120 120 Balance 240 2080 Weight 83.915 kg Intake: Intake, IV Titration 1000 Amount Ampicillin-Sulbactam 3 gm 200 In Sodium Chloride 0.9% 100 ml @ 100 mls/hr IVPB Q6H [facility] Rx#:[id number] Lactated Ringers 1,000 ml 800 @ 0 mls/hr IV .STK-MED ONE Rx#:[id number] Oral 360 1200 Output: Drainage 120 120 Right Abdomen 120 120 Other: Voiding Method Toilet Toilet Toilet # Voids 2 2 - Exam Physical exam 56-year-old female seen and evaluated sitting up in bed appears in no acute distress does report having abdominal discomfort Lungs adequate air movement bilaterally no shortness of breath Heart S1-S2 audible regular Abdomen CAROLE drain right quadrant bloody drainage noted in the bulb surgical dressing dry few hypoactive bowel tones no active emesis states tolerating a diet and passing gas no stool Extremities no edema - Labs CBC & Chem 7: 09/06/17 06:54 09/06/17 06:54 Assessment and Plan Assessment: Impression Right breast cancer diagnosed in 2008 Positive metastatic breast cancer liver History of palliative thoracentesis BRCA2 deleterious Present on admission right upper quadrant pain suspect due to acute cholecystitis Laparoscopic cholecystectomy September 05 for acute cholecystitis Postop expected blood loss anemia Plan Diet as tolerated Monitor the CAROLE drainage Continue postop surgical care Pain control Increase ambulation DVT and GI prophylaxis Further recommendations pending The above impression and plan of care have been discussed and directed by signing physician. Jenna Jacobs nurse practitioner acting as scribe for signing physician.
[2017-09-07] MEDS: HYDROcodone/APAP 5-325MG 1 EACH TAB PO PRN ×2 (16:17→20:54)
--- NOTE | 2017-09-07 18:22 | P.PN ---
Subjective Progress Note Date: 09/07/17 Principal diagnosis: Cholecystitis Seen in follow-up today. She is feeling overall well. Her pain is controlled and she is recovering from surgery well. She is passing gas and urinating without difficulty. No current SOB, Nausea, Vomiting, or fevers/chills. Objective - Vital Signs Vital signs: Vital Signs Temp 98.1 F 09/07/17 15:49 Pulse 84 09/07/17 15:49 Resp 20 09/07/17 15:49 BP 130/73 09/07/17 15:49 Pulse Ox 94 L 09/07/17 15:49 Intake & Output 09/06/17 09/07/17 09/07/17 18:59 06:59 18:59 Intake Total 360 2200 Output Total 120 120 70 Balance 240 2080 -70 Weight 83.915 kg Intake: Intake, IV Titration 1000 Amount Ampicillin-Sulbactam 3 gm 200 In Sodium Chloride 0.9% 100 ml @ 100 mls/hr IVPB Q6H [facility] Rx#:[id number] Lactated Ringers 1,000 ml 800 @ 0 mls/hr IV .[facility] Rx#:[id number] Oral 360 1200 Output: Drainage 120 120 70 Right Abdomen 120 120 70 Other: Voiding Method Toilet Toilet Toilet # Voids 2 2 2 - Constitutional General appearance: Present: cooperative, no acute distress - EENT Eyes: Present: EOMI, PERRLA, dentition normal ENT: Present: NA/AT, normal oropharynx - Neck Details: Supple, Trachea Midline Neck: Present: normal ROM - Respiratory Respiratory: bilateral: CTA (No increased effort) - Cardiovascular Rhythm: regular Heart sounds: normal: S1, S2 - Gastrointestinal Gastrointestinal Comment(s): CAROLE Drain with scant red/clear drainage, Incision CDI General gastrointestinal: Present: distended, normal bowel sounds, soft, tenderness - Integumentary Integumentary: Present: pale - Neurologic Neurologic Comment(s): No focal Defects Neurologic: Present: CNII-XII intact - Musculoskeletal Musculoskeletal: Present: generalized weakness, strength equal bilaterally - Psychiatric Psychiatric: Present: A&O x's 3, appropriate affect, intact judgment & insight - Labs CBC & Chem 7: 09/06/17 06:54 09/06/17 06:54 Assessment and Plan Plan: Assessment and Recommendations: 1. Metastatic Breast Cancer Following with Dr. Rodriguez (Known Liver, Bone, Pleural Mets) - Follow-up in office for Xgeva this week Thursday and with Dr. Rodriguez as already scheduled 2. Acute Cholecystitis - Status Post Lap Cholecystectomy 09/05/17 - Recovering Well - Incisions CDI and CAROLE Drain with scan clear red output 3. BRCA 2 Mutation [employer]
[2017-09-08] MEDS: HYDROcodone/APAP 5-325MG 1 EACH TAB PO PRN ×3 (00:58→09:54)
[2017-09-08] MEDS: AMPICILLIN-SULBACTAM 3 GM in SODIUM CHLORIDE 0.9% 100 ML IVPB SCH ×2 (00:58→09:15)
[2017-09-08] MEDS ORDERED: PANTOPRAZOLE 40 MG TABLET PO SCH (07:30)
[2017-09-08] MEDS: IPRATROPIUM-ALBUTEROL 3 ML NEB INHALATION SCH ×2 (07:48→12:04)
[2017-09-08 08:53] LABS: Basophils % (A) 1 %; Eosinophils # (A) 0.4 k/uL (0-0.7); Eosinophils % (A) 5 %; HCT 30.3 % (34.0-46.0); HGB 9.5 gm/dL (11.4-16.0); Hypochromasia Marked; Lymphocytes # (A) 0.7 k/uL (1.0-4.8); Lymphocytes % (A) 9 %; MCH 31.2 pg (25.0-35.0); MCHC 31.2 g/dL (31.0-37.0); MCV 99.8 fL (80.0-100.0); Macrocytosis Slight; Mean Platelet Volume 7.6; Monocytes # (A) 0.6 k/uL (0-1.0); Monocytes % (A) 8 %; Neutrophils # (A) 5.8 k/uL (1.3-7.7); Neutrophils % (A) 77 %; Platelet Count 184 k/uL (150-450); Poikilocytosis Slight; RBC 3.04 m/uL (3.80-5.40); RDW 15.8 % (11.5-15.5); WBC 7.6 k/uL (3.8-10.6)
[2017-09-08 09:02] VITALS: BP 141/91; PULSE 95; RESP 16; TEMP 98.3
[2017-09-08 09:10] LABS: ALT 96 U/L (9-52); AST 101 U/L (14-36); Albumin 2.6 g/dL (3.5-5.0); Alkaline Phosphatase 134 U/L (38-126); Anion Gap 10 mmol/L; Blood Urea Nitrogen 12 mg/dL (7-17); Calcium 7.9 mg/dL (8.4-10.2); Carbon Dioxide 30 mmol/L (22-30); Chloride 100 mmol/L (98-107); Glucose 168 mg/dL (74-99); Potassium 4.3 mmol/L (3.5-5.1); Sodium 140 mmol/L (137-145); Total Bilirubin 0.2 mg/dL (0.2-1.3); Total Protein 4.8 g/dL (6.3-8.2)
[2017-09-08] MEDS: ENOXAPARIN 40 MG/0.4 ML SYRINGE SQ SCH (09:19)
[2017-09-08] MEDS: DOCUSATE 100 MG CAP PO SCH (09:19)
--- NOTE | 2017-09-08 11:24 | P.DS ---
Providers Date of admission: 09/05/17 01:27 Expected date of discharge: 09/08/17 Attending physician: Jin Urban Consults: 09/05/17 01:27 Consult Physician Routine Consulting Provider: Katey Rodriguez Consult Reason/Comments: known Do you want consulting provider notified?: Yes Primary care physician: Katey Rodriguez [facility] Course: 56-year-old female who presented to the emergency room with a chief complaint of having a 4 day duration right upper quadrant abdominal pain in the emergency room ultrasound of the gallbladder showed multiple gallstones with a thickened wall. Consistent with acute on chronic cholecystitis no dilated ducts. On September 05 patient underwent a laparoscopic cholecystectomy for acute cholecystitis. Patient stated that she did not need any opiate prescriptions that she had Percocets at home for pain Patient has a history of metastatic breast cancer follows Dr. Rodriguez in the office. Patient was followed this admission with oncology service. On the day of discharge patient was felt to be appropriate to proceed with a discharge. The CAROLE drain bloody drainage noted. Surgical incision sites no redness dressings were dry. Was a small amount of leakage around the insertion site at the CAROLE drain Impression discharge diagnosis Right breast cancer diagnosed in 2008 Positive metastatic breast cancer liver, bone and pleural History of palliative thoracentesis BRCA2 Present on admission right upper quadrant pain suspect due to acute cholecystitis Laparoscopic cholecystectomy September 05 for acute cholecystitis Postop expected blood loss anemia Post op elevated liver enzymes expected improving The above impression and plan of care have been discussed and directed by signing physician. Jenna Jacobs nurse practitioner acting as scribe for signing physician. Patient Condition at Discharge: Fair Plan - Discharge Summary New Discharge Prescriptions: New Levofloxacin [Levaquin] 500 mg PO DAILY #7 tab Continue Albuterol Sulfate [Proair Respiclick] 1 puff PO RT-Q6H PRN PRN Reason: Shortness Of Breath Levothyroxine Sodium [Synthroid] 150 mcg PO DAILY Zolpidem [Ambien] 10 mg PO HS PRN PRN Reason: sleep oxyCODONE-APAP 10-325MG [Percocet 10-325 mg] 1 tab PO Q8HR PRN PRN Reason: Pain Calcium Carbonate/Vitamin D3 [Calcium 500-Vit D3 600 Tablet] 1 tab PO DAILY Loratadine-Pseudoeph 10-240 mg [Claritin-D 24 Hour] 1 tab PO DAILY oxyCODONE HCL 20 mg PO BID PRN PRN Reason: Pain Discharge Medication List Albuterol Sulfate [Proair Respiclick] 1 puff PO RT-Q6H PRN 09/06/16 [History] Levothyroxine Sodium [Synthroid] 150 mcg PO DAILY 09/06/16 [History] Zolpidem [Ambien] 10 mg PO HS PRN 09/16/16 [History] oxyCODONE-APAP 10-325MG [Percocet 10-325 mg] 1 tab PO Q8HR PRN 05/06/17 [History ] Calcium Carbonate/Vitamin D3 [Calcium 500-Vit D3 600 Tablet] 1 tab PO DAILY [History] Loratadine-Pseudoeph 10-240 mg [Claritin-D 24 Hour] 1 tab PO DAILY 07/30/17 [ History] oxyCODONE HCL 20 mg PO BID PRN 09/04/17 [History] Levofloxacin [Levaquin] 500 mg PO DAILY #7 tab 09/08/17 [Rx] Follow up Appointment(s)/Referral(s): Katey Rodriguez MD [Primary Care Provider] - 1-2 days Jin Urban MD [STAFF PHYSICIAN] - 1 Week Activity/Diet/Wound Care/Special Instructions: No tub bath for six weeks. Shower daily. No lifting over 10 pounds for the next 6 weeks.. May use ice packs to surgical site. No driving while taking narcotic for pain. do not remove the surgical dressings Discharge Disposition: HOME SELF-CARE
== END 2017-09-08 14:00 | disposition home health service (06) | DRG 418 ==
LOC: EC 21:49 → 5ONC 09-05 01:27
PROVIDERS: ADMIT Surgery; ATTEND Surgery
PROC: 0FT44ZZ Resection of Gallbladder, Percutaneous Endoscopic Approach (ICD-10-PCS; principal; 2017-09-05 09:19)
DX: K80.12 Calculus of gallbladder with acute and chronic cholecystitis without obstruction (principal); D62 Acute posthemorrhagic anemia; C78.7 Secondary malignant neoplasm of liver and intrahepatic bile duct; C79.51 Secondary malignant neoplasm of bone; J91.0 Malignant pleural effusion; C77.9 Secondary and unspecified malignant neoplasm of lymph node, unspecified; E03.9 Hypothyroidism, unspecified; J44.9 Chronic obstructive pulmonary disease, unspecified; R74.0 Nonspecific elevation of levels of transaminase and lactic acid dehydrogenase [LDH]; Z90.13 Acquired absence of bilateral breasts and nipples; Z87.891 Personal history of nicotine dependence; Z85.3 Personal history of malignant neoplasm of breast; Z79.890 Hormone replacement therapy; Z79.899 Other long term (current) drug therapy; Z88.1 Allergy status to other antibiotic agents; Z92.21 Personal history of antineoplastic chemotherapy; Z92.3 Personal history of irradiation; Z80.3 Family history of malignant neoplasm of breast; Z82.49 Family history of ischemic heart disease and other diseases of the circulatory system; Z82.5 Family history of asthma and other chronic lower respiratory diseases
CPT/HCPCS: 36415; 71046; 76705; 80053; 82550; 82553; 83735; 83880; 84484; 85025; 85610; 85730; 93005; 94640; 94644; 94760; 96365; 96375; 99285

== ENCOUNTER 2017-09-23 07:55 | Day surgery (SDC) | payer OTHER ==
[2017-09-23 08:53] LABS: INR 1.2 (<1.2); Prothrombin Time 11.5 sec (9.0-12.0)
--- NOTE | 2017-09-23 09:05 | US ---
EXAMINATION TYPE: US abdomen limited DATE OF EXAM: 09/23/2017 COMPARISON: NONE CLINICAL HISTORY: ASCITES. Distended abd post cholecystectomy Mild ascites seen. IMPRESSION: 1. Limited ultrasound demonstrates a small amount of ascites.
[2017-09-23 09:11] LABS: Mean Platelet Volume 8.5; Platelet Count 106 k/uL (150-450)
[2017-09-23 09:39] VITALS: TEMP 97.9
--- NOTE | 2017-09-23 09:47 | XR ---
EXAMINATION TYPE: XR chest 1V portable DATE OF EXAM: 09/23/2017 COMPARISON: 09/04/2017 HISTORY: Left thoracentesis TECHNIQUE: Single frontal view of the chest is obtained. FINDINGS: There is no pneumothorax post left-sided thoracentesis. There is near complete resolution of left-sided pleural effusion with tiny bilateral effusions noted. Heart size is stable. Interstitiu m unchanged. Arthropathy shoulders. IMPRESSION: No pneumothorax post thoracentesis.
--- NOTE | 2017-09-23 09:52 | US ---
Ultrasound-guided therapeutic thoracentesis DATE OF EXAM: 09/23/2017 CLINICAL HISTORY: Left pleural effusion The procedure was discussed with the patient. The risks, complications, benefits, and alternatives we re discussed and any questions were answered. Informed consent was obtained. The patient was placed supine on the ultrasound table and prepped and draped in the usual sterile fas hion. All elements of maximal barrier and sterile technique were utilized. Under ultrasound guidance, access into the pleural space was obtained, via the thoracentesis catheter system and direct ultrasound guidance. Ap proximately 0.6 liters of straw-colored fluid was removed. The patient was stable throughout the procedure and remained stable upon discharge from Department of Radiology. IMPRESSION: 1. Successful left thoracentesis under ultrasound guidance.
[2017-09-23 10:24] VITALS: BP 124/68; PULSE 101; RESP 18
== END 2017-09-23 10:25 | disposition home or self-care (01) ==
LOC: RADPROMAIN 07:55
PROVIDERS: ATTEND Internal Medicine Hematology & Oncology
DX: J90 Pleural effusion, not elsewhere classified (principal); R18.8 Other ascites
CPT/HCPCS: 32555; 36415; 71045; 76705; 82565; 85049; 85610

== ENCOUNTER 2017-09-30 15:10 | Inpatient (IN) | payer OTHER ==
--- NOTE | 2017-09-30 15:39 | XR ---
EXAMINATION TYPE: XR chest 1V portable DATE OF EXAM: 09/30/2017 COMPARISON: 09/23/2017 HISTORY: Shortness of breath TECHNIQUE: Single frontal view of the chest is obtained. FINDINGS: Bilateral consolidation and pleural effusion. No pneumothorax. Biapical pleural thickening . Heart size is stable. No pneumothorax. Interstitial pattern noted. IMPRESSION: Stable bilateral consolidation and pleural effusion. Mild central venous congestion not excluded..
--- NOTE | 2017-09-30 15:48 | ED ---
General Adult HPI - General Chief complaint: Shortness of Breath Stated complaint: dehydration Time Seen by Provider: 09/30/17 15:17 Source: EMS, RN notes reviewed, old records reviewed Mode of arrival: EMS Limitations: no limitations - History of Present Illness Initial comments: This is a 56-year-old female the ER today. Patient was essay for evaluation regarding shortness of breath patient coming in with significant difficulty breathing, or EMS is having shortness of breath that started this morning. Patient is unable to give history secondary to current clinical state. Patient is in mild distress. Patient denies any current chest pain no recent fevers, does have increased cough and congestion. Patient does have family history of CVA and COPD - Related Data Home Medications Medication Instructions Recorded Confirmed Levothyroxine Sodium [Synthroid] 150 mcg PO DAILY 09/06/16 09/30/17 oxyCODONE-APAP 10-325MG [Percocet 1 tab PO Q6H PRN 05/06/17 09/30/17 10-325 mg] Calcium Carbonate/Vitamin D3 2 tab PO DAILY 06/16/17 09/30/17 [Calcium 500-Vit D3 600 Tablet] oxyCODONE HCL 20 mg PO Q12H 09/04/17 09/30/17 Ibuprofen [Motrin] 800 mg PO BID 09/30/17 09/30/17 Ipratropium-Albuterol Nebulize 3 ml INHALATION RT-QID PRN 09/30/17 09/30/17 [Duoneb 0.5 mg-3 mg/3 ml Soln] Loratadine [Claritin] 10 mg PO DAILY 09/30/17 09/30/17 Zolpidem [Ambien] 5 mg PO HS PRN 09/30/17 09/30/17 Allergies Allergy/AdvReac Type Severity Reaction Status Date / Time ciprofloxacin [From Cipro] Allergy Rash/Hives Verified 09/30/17 16:03 Review of Systems ROS Statement: Those systems with pertinent positive or pertinent negative responses have been documented in the HPI. ROS Other: All systems not noted in ROS Statement are negative. Past Medical History Past Medical History: Cancer, COPD, Thyroid Disorder Additional Past Medical History / Comment(s): History of right-sided breast CA- "positive for brca2 gene mutation, the patient is status post bilateral mastectomy chemotherapy and radiation therapy with subsequent breast reconstruction surgery, COPD, hypothyroidism, recent hospitalization for acute respiratory failure requiring intubation mechanical ventilation, bilateral pleural effusion, malignant at this stage with breast primary. Home O2 3L PER N /C prn, mets to bone receiving radiation. History of Any Multi-Drug Resistant Organisms: None Reported Past Surgical History: Cholecystectomy, Ear Surgery Additional Past Surgical History / Comment(s): bilateral mastectomy, nisreen thoracentesis, rt ear"mass removed-benign", rt foot sx d/t shattered heel. Multi Thoracentesis Left and right, gallbladder removed 09/11/17. Post-op anasarca. Past Anesthesia/Blood Transfusion Reactions: No Reported Reaction Past Psychological History: No Psychological Hx Reported Smoking Status: Former smoker Past Alcohol Use History: None Reported Past Drug Use History: None Reported - Past Family History Mother Family Medical History: COPD Additional Family Medical History / Comment(s): emphysema Father Family Medical History: Myocardial Infarction (IA) General Exam Limitations: no limitations General appearance: alert, in no apparent distress Head exam: Present: atraumatic, normocephalic, normal inspection Eye exam: Present: normal appearance, PERRL, EOMI. Absent: scleral icterus, conjunctival injection, periorbital swelling ENT exam: Present: normal exam, mucous membranes moist Neck exam: Present: normal inspection. Absent: tenderness, meningismus, lymphadenopathy Respiratory exam: Present: normal lung sounds bilaterally. Absent: respiratory distress, wheezes, rales, rhonchi, stridor Cardiovascular Exam: Present: regular rate, normal rhythm, normal heart sounds. Absent: systolic murmur, diastolic murmur, rubs, gallop, clicks GI/Abdominal exam: Present: soft, normal bowel sounds. Absent: distended, tenderness, guarding, rebound, rigid Extremities exam: Present: normal inspection, full ROM, normal capillary refill. Absent: tenderness, pedal edema, joint swelling, calf tenderness Back exam: Present: normal inspection Neurological exam: Present: alert, oriented X3, CN II-XII intact Psychiatric exam: Present: normal affect, normal mood Skin exam: Present: warm, dry, intact, normal color. Absent: rash Course Vital Signs 09/30/17 15:19 Temperature 96.9 F L Pulse Rate 94 Respiratory 20 Rate Blood Pressure 128/62 O2 Sat by Pulse 100 Oximetry - Reevaluation(s) Reevaluation #1: 09/30/17 16:28 Medical records thoroughly reviewed Reevaluation #2: 09/30/17 16:28 Pain is controlled EKG Findings - EKG Comments: EKG Findings:: EKG shows sinus rhythm rate of 87, CT 150, QRS 90, QTc 510 Medical Decision Making - Medical Decision Making 56 female the ER for evaluation, medications regarding CVA. Metastatic disease from breast cancer. Anasarca, liver metastases with portal hypertension, ascites elevated ammonia lactic acidosis. Patient to be admitted for evaluation and management by oncology and GI - Lab Data Result diagrams: 09/30/17 15:47 Lab Results 09/30/17 09/30/17 09/30/17 Range/Units 15:47 15:47 15:47 WBC 11.0 H (3.8-10.6) k/uL RBC 4.37 (3.80-5.40) m/uL Hgb 13.0 D (11.4-16.0) gm/dL Hct 44.6 (34.0-46.0) % MCV 102.2 H (80.0-100.0) fL MCH 29.9 (25.0-35.0) pg MCHC 29.2 L (31.0-37.0) g/dL RDW 19.3 H (11.5-15.5) % PT 18.1 H (9.0-12.0) sec INR 2.0 H (<1.2) APTT 31.3 H (22.0-30.0) sec Plasma Lactic Acid Morgan (0.7-2.0) mmol/L Ammonia (<30) umol/L Total Creatine Kinase 353 H (30-135) U/L 09/30/17 Range/Units 15:47 WBC (3.8-10.6) k/uL RBC (3.80-5.40) m/uL Hgb (11.4-16.0) gm/dL Hct (34.0-46.0) % MCV (80.0-100.0) fL MCH (25.0-35.0) pg MCHC (31.0-37.0) g/dL RDW (11.5-15.5) % PT (9.0-12.0) sec INR (<1.2) APTT (22.0-30.0) sec Plasma Lactic Acid Morgan 7.3 H* (0.7-2.0) mmol/L Ammonia 47 H (<30) umol/L Total Creatine Kinase (30-135) U/L - Radiology Data Radiology results: report reviewed (Chest x-ray shows fluid overload pulmonary edema), image reviewed Critical Care Time Critical Care Time: Yes Total Critical Care Time: 31 Disposition Clinical Impression: Anasarca, Pleural effusion, right, Pneumonitis, Acute exacerbation of chronic obstructive airways disease, Congestive heart failure, Ascites, Lactic acidosis Disposition: ADMITTED IP TO THIS HOSP Condition: Fair Is patient prescribed a controlled substance at d/c from ED?: No Referrals: Katey Rodriguez MD [Primary Care Provider] - 1-2 days
[2017-09-30 16:16] LABS: Anisocytosis Slight; HCT 44.6 % (34.0-46.0); Hypochromasia Marked; Lactic Acid, Venous 7.3 mmol/L (0.7-2.0); MCH 29.9 pg (25.0-35.0); MCHC 29.2 g/dL (31.0-37.0); MCV 102.2 fL (80.0-100.0); Macrocytosis Moderate; Mean Platelet Volume 8.8; RBC 4.37 m/uL (3.80-5.40); RDW 19.3 % (11.5-15.5)
[2017-09-30 16:17] LABS: Partial Thromboplastin Time 31.3 sec (22.0-30.0); Prothrombin Time 18.1 sec (9.0-12.0)
[2017-09-30 16:21] LABS: Albumin 3.3 g/dL (3.5-5.0); Magnesium 2.6 mg/dL (1.6-2.3); Total Bilirubin 10.9 mg/dL (0.2-1.3); Total Protein 5.8 g/dL (6.3-8.2)
[2017-09-30] MEDS ORDERED: ONDANSETRON 4 MG/2 ML VIAL IVP PRN (16:24)
[2017-09-30] MEDS ORDERED: MORPHINE SULFATE 4 MG/ML SYRINGE IVP PRN (16:24)
[2017-09-30 16:26] LABS: Creatine Kinase 353 U/L (30-135)
[2017-09-30 16:30] LABS: Calcium 6.1 mg/dL (8.4-10.2); Potassium 6.6 mmol/L (3.5-5.1)
[2017-09-30] MEDS ORDERED: SODIUM CHLORIDE 0.9% 1,000 ML IV SCH (16:30)
[2017-09-30] MEDS: MORPHINE SULFATE 4 MG/ML SYRINGE IVP STA ×2 (16:38→16:44)
[2017-09-30 16:39] LABS: Creatine Kinase MB 1.6 ng/mL (0.0-2.4); Troponin I <0.012 ng/mL (0.000-0.034)
[2017-09-30 17:11] LABS: Band Neutrophils % 15 %; Lymphocytes # (M) 1.03 k/uL (1.0-4.8); Metamyelocytes # (M) 0.21 k/uL (0); Metamyelocytes % 2 %; Monocytes # (M) 0.82 k/uL (0-1.0); Myelocytes # (M) 0.21 k/uL (0); Myelocytes % 2 %; Neutrophils % (M) 65 %; Nucleated Red Blood Cells 7 /100 WBC (0-0); Total Cells Counted 200; WBC 10.3 k/uL (3.8-10.6)
[2017-09-30 17:13] LABS: Platelet Count 90 k/uL (150-450); Polychromasia Present
--- NOTE | 2017-09-30 17:52 | US ---
EXAMINATION TYPE: US venous doppler duplex LE DATE OF EXAM: 09/30/2017 5:31 PM COMPARISON: NONE CLINICAL HISTORY: Pain SIDE PERFORMED: Bilateral TECHNIQUE: The lower extremity deep venous system is examined utilizing real time linear array sonog vanessa with graded compression, doppler sonography and color-flow sonography. VESSELS IMAGED: External Iliac Vein (EIV) Common Femoral Vein Deep Femoral Vein Greater Saphenous Vein * Femoral Vein Popliteal Vein Small Saphenous Vein * Proximal Calf Veins (* superficial vessels) FINDINGS: Grayscale, color doppler, spectral doppler imaging performed of the deep veins of the lower extremities. There is normal flow, compressibility, vascular waveforms. IMPRESSION: NEGATIVE FOR DVT, BILATERAL LOWER EXTREMITIES.
[2017-09-30] MEDS ORDERED: SODIUM CHLORIDE 0.9% 2,000 ML IV ONE (22:03)
[2017-09-30 22:09] VITALS: TEMP 94.4
[2017-09-30 22:19] LABS: ABG Base Excess -19.3 mmol/L; ABG Oxygen Saturation 98.1 % (94-97); ABG PCO2 26 mmHg (35-45); ABG PO2 120 mmHg (83-108); ABG TCO2 10 mmol/L (19-24)
[2017-09-30 22:22] LABS: ABG HCO3 9 mmol/L (21-25); ABG PH 7.16 (7.35-7.45)
[2017-09-30 22:27] LABS: Glucose,Whole Blood 77 mg/dL (75-99)
[2017-09-30] MEDS ORDERED: DEXTROSE 50%-WATER 50 ML SYRINGE IVP STA (23:33)
[2017-09-30] MEDS ORDERED: INSULIN ASPART 100 UNIT/ML 1 ML 10 ML VIAL SQ ONE (23:34)
[2017-09-30] MEDS ORDERED: SODIUM BICARB 8.4% 50 ML SYR (1 MEQ/ML) IV ONE (23:35)
[2017-09-30] MEDS ORDERED: WATER FOR INJECTION, STERILE 1,000 ML with SODIUM ACETATE 150 MEQ IV SCH ×2 (23:45)
[2017-09-30] MEDS ORDERED: MORPHINE SULFATE (100 MG/2 ML) 100 MG in SODIUM CHLORIDE 0.9% 100 ML IV SCH (23:45)
[2017-09-30 23:56] LABS: Glucose,Whole Blood 60 mg/dL (75-99)
[2017-09-30] MEDS ORDERED: SCOPOLAMINE 1.5MG/72HR PATCH TRANSDERM PRN (23:57)
[2017-09-30] MEDS ORDERED: LORazepam 2 MG/ML INJ IV PRN (23:57)
--- NOTE | 2017-10-01 00:03 | HP ---
HISTORY AND PHYSICAL DATE OF ADMISSION: 09/30/2017 DATE OF SERVICE: 09/30/2017 PRESENTING COMPLAINT: Short of breath. HISTORY OF PRESENTING COMPLAINT: This is a 56-year-old patient who follows with Dr. Rodriguez, her oncologist. The patient in 2008 was diagnosed with right breast carcinoma. It was ER/SD positive and HER 2-fidel negative. Subsequently she had mastectomy and was found to have T2N2 disease and 17 out of 20 lymph nodes were positive. The patient at that time had also prophylactic left mastectomy and bilateral reconstruction surgery. The patient then received adjuvant chemotherapy and radiation therapy and was given tamoxifen. In August 2010 she was switched over to Arimidex and she was lost to followup for insurance reasons. In 2012 she was seen by Dr. Curtis briefly and then lost to followup again. The patient had to stop the tamoxifen on her own, then in April of 2016 she did fine and then she presented with progressive disease, short of breath, bilateral pleural effusion, had thoracentesis that was positive for metastatic breast carcinoma. Subsequently patient was found to have lung nodules and evidence of liver metastasis as well. The patient was then put on oral Femara and systemic treatment with hormonal therapy with combination of Femara and Ibrance. This was in August of 2016. Then in April of this year patient had palliative radiation to her T-spine due to bone lesions causing pain. After 3 treatments, patient declined further treatment. The patient has also been getting Xgeva for bone metastasis and calcium supplementation. In July of this year the patient was found to have progression of her disease, including into the liver. The patient has had multiple palliative thoracenteses and there was some slowing down of the disease process. In July of this year again disease process was found to be progressed and Femara and Ibrance was discontinued. Then she was started on August 12 with Faslodex. About 3 weeks ago patient was found to have thickening of the gallbladder with multiple gallstones and had a cholecystectomy carried out by Dr. Urban. The patient today presented to the ER more short of breath. That is all the history I have. The patient is rather lethargic, delirious, not able to give me any history. I did go down to the waiting room to try to speak to the 2 daughters. They were not available. Patient has severe derangement of her lab work. Patient's platelets are 90. Patient blood gas showed a pH of 7.16, bicarb of 9. Potassium was 6.6, BUN 53, creatinine 2.16, up from 12 and 0.62 from 2 weeks ago. Also patient's AST and ALT are 1986 and 533, up from 2 weeks ago. Ammonia level is 47, albumin 3.3, lactic acid 7.3. Like stated, this patient is rather lethargic. REVIEW OF SYSTEMS: Cannot be obtained, as patient is rather lethargic, and no other family member is available; did check out in the waiting room. PAST MEDICAL HISTORY: 1. COPD. 2. Hypothyroid. 3. Right-sided breast cancer with subsequent metastatic disease. 4. Hypothyroidism. 5. Recent hospitalization being on the ventilator. 6. Home oxygen 3 L. 7. Bony metastasis. PAST SURGICAL HISTORY: 1. Cholecystectomy on 09/05/2017. 2. Bilateral mastectomy. 3. Bilateral thoracenteses. 4. Right foot surgery due to shattered heel. 5. Multiple thoracenteses on the left and right. SOCIAL HISTORY: The patient smoked for close to 40 years, stopped about a year ago. Smoked 2 packs a day. Patient used to do cannabis oil. FAMILY HISTORY: COPD. HOME MEDICATIONS: 1. Percocet 10 one tablet q.6 p.r.n. 2. Oxycodone 20 mg q.12. 3. Ambien 5 mg at bedtime p.r.n. 4. Claritin 10 mg p.o. daily. 5. Synthroid 150 mcg p.o. daily. 6. DuoNeb q.i.d. p.r.n. 7. Calcium with vitamin D3 two tablets p.o. daily. ALLERGIES: CIPRO. PHYSICAL EXAMINATION: Temperature 98.4, pulse 103, respiration 24, blood pressure 140/57, pulse ox 99% on 2 L. GENERAL APPEARANCE: Well built; BMI 33.1. Lethargic. Mumbles some words, then dozes off. EYES: Pupils equal. Conjunctivae with some icterus present. HEENT: External appearance of nose and ears normal. Oral cavity dry. NECK: JVD unable to assess. Mass not palpable. RESPIRATORY: Effort increased. LUNGS: Diminished breath sounds. CARDIOVASCULAR: First and second sounds normal. Gross edema present. ABDOMEN: Distended, soft. Liver and spleen not palpable. LYMPHATIC: No lymph node palpable in neck or axillae. PSYCHIATRY: Unable to assess. Patient is rather lethargic. NEUROLOGICAL: Pupils equal. No facial asymmetry. Seems to move all 4 limbs. INVESTIGATIONS: White count 10.3, hemoglobin 13.0, platelets 90. Blood gas showed pH of 7.16, bicarb of 9, potassium of 6.6, sodium 128, BUN 53, creatinine 2.16. Lactic acid 7.3, then 11.4. AST 1986, ALT 533. Ammonia 47. ASSESSMENT: 1. Acute metabolic encephalopathy, multifactorial. May need to rule out metastatic disease to the brain. 2. Acute hepatitis; could be from liver congestion and/or could be drug-induced. Patient recently did have cholecystectomy by Dr. Urban. 3. Hypoalbuminemia, probably from protein-calorie malnutrition, mild. 4. Hyperkalemia in the setting of renal failure. 5. Acute renal failure likely prerenal. 6. Lactic acidosis. 7. Severe metabolic acidosis. 8. Thrombocytopenia. 9. Metastatic breast cancer with metastases in the bones, liver, lung. 10.Bilateral pleural effusion, probably from metastatic disease, causing acute hypoxic respiratory failure. PLAN: Overall prognosis is poor in this setting of advanced metastatic disease. In spite of treatment, patient has been progressively getting worse with underlying malignancy. At this point patient is admitted to the ICU. Snow Technician Dr. Quinn is being contacted. I did try to talk to the family, but nobody is present here right now. Patient is FULL CODE. Nurses are trying to get IV access. Patient will require bicarbonate drip. Patient may also need some pressure support as the pressure goes down. Like stated, prognosis remains poor. Consultation also will be made to Nephrology and Oncology. MMODL / IJN: [id number] /
[2017-10-01 01:21] VITALS: BP 60/38; PULSE 0
[2017-10-01 03:50] VITALS: RESP 0
[2017-10-01] MEDS ORDERED: ENOXAPARIN 40 MG/0.4 ML SYRINGE SQ SCH (09:00)
--- NOTE | 2017-10-04 12:37 | DS ---
DISCHARGE SUMMARY DATE OF ADMISSION: 09/30/2017. DATE OF EXPIRATION: 10/01/2017. FINAL DIAGNOSES: 1. Acute metabolic encephalopathy, multifactorial. 2. Acute hepatitis, could be from hypotension or could be drug induced. 3. Hypoalbuminemia from protein calorie malnutrition, mild. 4. Hyperkalemia in the setting of renal failure. 5. Acute renal failure, likely prerenal. 6. Lactic acidosis. 7. Severe metabolic acidosis. 8. Thrombocytopenia. 9. Metastatic breast cancer with metastasis to the bone, liver and lung. 10.Bilateral pleural effusion, probably from metastatic disease causing acute hypoxic respiratory failure. CONSULTATIONS: 1. Dr. Mccollum from Infectious Disease. 2. Dr. Quinn from Critical Care. 3. Dr. Rodriguez from Oncology. 4. Dr. Urban from General surgery. HOSPITAL COURSE: This is a 56-year-old patient of Dr. Rodriguez who has had recurrence of breast cancer and metastatic disease which has progressed. Has been receiving palliative treatment. The patient presented feeling weak and tired. She was hypotensive. Admitted to the ICU. Rapidly worse, going downhill. I spoke to Dr. Curtis, covering for Dr. Rodriguez. The patient had met with Dr. Rodriguez a couple of days ago and was looking at some new therapy. In view of that, plan was to see what the family the patient would wish and see if she could be turned around. Patient continued to do very poorly, was hypoxic, had renal failure, hepatic failure. I did then call and talk to the patient's two daughters and son over the phone and they wanted to go ahead as FULL CODE. I did then speak to Dr. Quinn from Critical Care, who was managing as gutter installer, and expressed to the family in my assessment that the patient was doing very poorly. The patient, in the early hours of the morning, succumbed to the underlying condition. CAUSE OF : Metastatic breast cancer. MMODL / IJN: [id number] /
== END 2017-10-01 04:21 | disposition expired | DRG 180 ==
LOC: EC 15:10 → 6SEL 16:25 → 6ICU 22:11
PROVIDERS: ADMIT Hospitalist; ATTEND Hospitalist
DX: C78.00 Secondary malignant neoplasm of unspecified lung (principal); J96.01 Acute respiratory failure with hypoxia; G93.41 Metabolic encephalopathy; C78.7 Secondary malignant neoplasm of liver and intrahepatic bile duct; K76.6 Portal hypertension; R18.8 Other ascites; N17.9 Acute kidney failure, unspecified; C79.51 Secondary malignant neoplasm of bone; E87.2 Acidosis; E44.1 Mild protein-calorie malnutrition; J91.0 Malignant pleural effusion; C77.9 Secondary and unspecified malignant neoplasm of lymph node, unspecified; J44.9 Chronic obstructive pulmonary disease, unspecified; R53.83 Other fatigue; K72.90 Hepatic failure, unspecified without coma; E87.5 Hyperkalemia; E03.9 Hypothyroidism, unspecified; D69.6 Thrombocytopenia, unspecified; E86.0 Dehydration; Z85.3 Personal history of malignant neoplasm of breast; Z92.21 Personal history of antineoplastic chemotherapy; Z92.3 Personal history of irradiation; Z99.81 Dependence on supplemental oxygen; Z90.49 Acquired absence of other specified parts of digestive tract; Z82.5 Family history of asthma and other chronic lower respiratory diseases; Z88.1 Allergy status to other antibiotic agents; Z87.891 Personal history of nicotine dependence; Z79.890 Hormone replacement therapy; Z79.899 Other long term (current) drug therapy; Z82.3 Family history of stroke; Z90.13 Acquired absence of bilateral breasts and nipples; Z82.49 Family history of ischemic heart disease and other diseases of the circulatory system
CPT/HCPCS: 36415; 36600; 71045; 80053; 82140; 82550; 82553; 82805; 83605; 83735; 83880; 84484; 85025; 85610; 85730; 93005; 93970; 96361; 96374; 96376; 99291